=== PATIENT | male | born 1950 | race Caucasian/White ===

== ENCOUNTER → 2019-12-01 09:18 | Outpatient (BNVA) | payer MEDICARE, MEDICAID, SELFPAY | PROVIDERS: PCP Nurse Practitioner Family; Referring Provider Nurse Practitioner Family; Visit Provider Psychiatry & Neurology Neurology | DX: G47.33 Obstructive sleep apnea (adult) (pediatric) (principal); Z99.89 Dependence on other enabling machines and devices | CPT/HCPCS: 99213 ==

== ENCOUNTER 2019-12-17 12:42 | Outpatient (REF) | payer MEDICARE, MEDICAID, SELFPAY ==
[2019-12-17 15:02] LABS: PSA,Total (Free>4and<10) 5.11 ng/mL (0.00-4.00)
[2019-12-18 12:11] LABS: Free Prostate Spec Ag 0.7 ng/mL; Percent Free Prostate Spec Ag 14 % (calc) (>25); Prostate Specific Ag Total 5.1 ng/mL (< OR = 4.0)
== END 2019-12-17 12:43 | disposition home or self-care (01) ==
LOC: HO.LAB 12:42
PROVIDERS: PCP Nurse Practitioner Family; Visit Provider Urology
DX: N40.0 Benign prostatic hyperplasia without lower urinary tract symptoms (principal)
CPT/HCPCS: 84153

== ENCOUNTER → 2019-12-23 10:02 | Outpatient (BNVA) | payer MEDICARE, MEDICAID, SELFPAY | PROVIDERS: PCP Nurse Practitioner Family; Referring Provider Nurse Practitioner Family; Visit Provider Student in an Organized Health Care Education/Training Program | DX: M1A.00X0 Idiopathic chronic gout, unspecified site, without tophus (tophi) (principal); M47.816 Spondylosis without myelopathy or radiculopathy, lumbar region | CPT/HCPCS: 99212 ==

== ENCOUNTER → 2020-01-29 11:12 | Outpatient (REF) | payer MEDICARE, MEDICAID, SELFPAY ==
--- NOTE | 2020-01-29 11:16 | CA_ITS ---
Transthoracic Echocardiogram Patient (Last, First, Middle): Fadi Ortega, Gender: Male Date of : 1950 Age: 69 Procedure Date: 01/29/2020 Procedure Type: Transthoracic Echocardiogram Location: OP Height: 177.8 cm Weight: 102.06 kg BSA: 2.19 m2 Heart Rate: bpm BP: 128 / 80 mmHg Rag Inspector: RAJNI Referring MD: Ramon Claire MD Resource Agent: Ramon Claire MD Symptoms: I25.5 Study Quality: Fair ECG Rhythm: Atrial Fibrillation Conclusions: - 1. Mildly reduced LV systolic function with regional wall motion abnormality consistent with prior myocardial infarction with mild LVH 2. Biatrial enlargement, right greater than left 3. Severely dilated right ventricle with reduced systolic function 4. Severely elevated right ventricular 5. No gross pericardial effusion Findings Procedure Information Contrast agent, definity, is being given per protocol without apparent complications. Left Ventricle Normal left ventricular cavity size. There is mildly increased left ventricular wall thickness. The left ventricular systolic function is mildly decreased. The visually estimated ejection fraction is between 45-50%. Diastolic function is indeterminate on the basis of available data. Wall Motion Rest Echo Findings The basal inferolateral segment is hypokinetic. The inferoseptal wall, the basal inferior, and mid inferior segments are akinetic. All other scored wall segments showed normal motion. Right Ventricle Severely increased right ventricular cavity size. There is mildly decreased right ventricular systolic function. Atria The left atrium is moderately dilated. There is no evidence of interatrial shunt. The right atrium is severely dilated. Aortic Valve The aortic valve was not well visualized. There is mild calcification of the aortic valve. There is no aortic valve stenosis. There is no aortic valve regurgitation. Mitral Valve The mitral valve was not well visualized. There is trace mitral valve regurgitation. There is no mitral valve stenosis. Pulmonic Valve The pulmonic valve was not well visualized. Tricuspid Valve The tricuspid valve was not well visualized. There is mild to moderate tricuspid valve regurgitation. Moderately elevated right atrial pressure. Severe pulmonary hypertension is present. Great Vessels All visible segments of the aorta are normal in size. The pulmonary artery was not well visualized. Venous The inferior vena cava is moderately dilated and collapses less than 50% with inspiration. Pericardium/Pleural There is no evidence of pericardial effusion. Prior Study Comparison Changes noted compared to prior study dated: 02/03/2019. RV systolic pressure is further increased Measurements 2D Linear Measurements IVSd: 1.21 0.6-0.9/0.6-1.0 cm LVIDd: 4.60 3.9-5.3/4.2-5.9 cm LVIDd Index: 2.10 2.4-3.2/2.2-3.1 cm/m2 LVIDs: 3.34 2.0-3.6 cm LVPWd: 1.23 0.7-1.1 cm Ao Root: 3.10 2.1-3.5 cm LA Diam: 4.80 2.7-3.8/3.0-4.0 cm LAIDs Index: 2.19 1.5-2.3 cm/m2 LV Mass: 261.64 67-162/88-224 g LV Mass Index: 119.47 43-95/49-115 g/m2 LVOT Diam: 2.10 3.0+(-)1.3 cm 2D Systolic Function EF 4C: 52.70 >55% EF 2C: 41.70 >55% EF BiP: 46.70 >55% Mitral Valve MV Pk E: 1.19 MV Decel Time: 137.00 E'Lateral: 13.10 E'Medial: 11.70 E/E' Med: 10.20 E/E' Lat: 9.10 PHT: 40.00 MVA PHT: 5.50 Decel Archer: 8.69 Aortic Valve AoV Pk Angel: 1.07 AoV Mn Angel: 0.70 AoV VTI: 0.26 AoV Pk Grad: 5.00 Aov Mn Grad: 2.00 MAYO Cont.VTI: 2.24 LVOT LVOT Pk Angel: 0.77 LVOT Mn Angel: 0.53 LVOT VTI: 0.17 LVOT Pk Grad: 2.00 LVOT Mn Grad: 1.00 LVOT Diam: 2.10 LVOT Area: 3.46 Diastolic Function MV Pk E: 1.19 E'Medial: 11.70 E/E' Med: 10.20 E' Laterial: 13.10 E/E' Lat: 9.10 Tricuspid Valve TR Pk Angel: 3.85 TR Pk Grad: 59.00 RA Press: 8.00 RVSP: 67.00 Great Vessels Aorta Ao Root-2D: 3.10 2.0-3.7 cm Pulmonary Valve PV Pk Angel: 0.76 Peak PV Grad: 2.00 Updated in Other Vendor System with Status of Final Ramon Claire MD electronically signed on 01/30/2020 11:41:43 AM with status of Final
== END ==
LOC: HO.CARD 11:12
PROVIDERS: PCP Nurse Practitioner Family; Visit Provider Internal Medicine Cardiovascular Disease
DX: I25.5 Ischemic cardiomyopathy (principal)
CPT/HCPCS: 93306; Q9957

== ENCOUNTER 2020-02-17 11:06 | Day surgery (SDC) | payer MEDICARE, MEDICAID, SELFPAY ==
[2020-02-09 09:36] VITALS: BMI 33.4
--- NOTE | 2020-02-16 10:38 | P.CONAN_ITS ---
Documented by User: Nallely Colbert 02/16/20 12:33 HPI - Anesthesia Eval Consult details Narrative: 69yo M for Colonoscopy [facility] [place] Past Medical History Medical History (Updated 02/09/20 @ 09:35 by Vandana Michelle) Arrhythmia CHF (congestive heart failure) Elevated cholesterol Gout History of posttraumatic stress disorder (PTSD) HTN (hypertension) Hx of cardiomyopathy Myocardial infarction Sleep apnea Family History Family History (Updated 11/28/19 @ 12:41 by Johanna Garnett [facility]) Father Hodgkin lymphoma Mother No problems noted. Sister Melanoma Surgical History Surgical History History of bladder surgery History of prostate surgery Hx of appendectomy Hx of cholecystectomy Hx of colonoscopy Hx of heart artery stent Hx of hernia repair Hx of tonsillectomy Social History Social History (Updated 12/23/19 @ 10:12 by Cole Agrawal LPN) Alcohol intake: current Alcohol intake frequency: holidays/special occasions only Alcohol type: beer and hard liquor Smoking Status: Former smoker Use of substances other than those prescribed or required for medical reasons: No Advance Directives: No Advance Directives Information Provided: Yes Meds Allergies Allergy/AdvReac Type Severity Reaction Status Date / Time No Known Allergies Allergy Verified 12/23/19 10:11 [No Known Allergies*] Home Medications Medication Instructions Recorded Confirmed Type ascorbate calcium (vitamin C) 500 1 g PO Q6H 11/28/19 11/28/19 History mg tablet atorvastatin 80 mg tablet 80 mg PO BEDTIME 11/28/19 11/28/19 History cholecalciferol (vitamin D3) 25 25 mcg PO DAILY 11/28/19 11/28/19 History mcg (1,000 unit) capsule dabigatran etexilate 150 mg capsule 150 mg PO BID 11/28/19 11/28/19 History docusate sodium 100 mg capsule 100 mg PO DAILY 11/28/19 11/28/19 History folic acid 1 mg tablet 1 mg PO DAILY 11/28/19 11/28/19 History losartan 50 mg tablet 50 mg PO DAILY 11/28/19 11/28/19 History omeprazole 20 mg capsule,delayed 20 mg PO DAILY 11/28/19 11/28/19 History release sennosides 8.6 mg capsule 8.6 mg PO DAILY 11/28/19 11/28/19 History vitamin B complex 1 tab PO DAILY 11/28/19 11/28/19 History allopurinol 100 mg tablet 200 mg PO DAILY tab 12/23/19 History metoprolol tartrate 100 mg tablet 100 mg PO DAILY 12/23/19 History metoprolol tartrate 50 mg tablet mg PO BEDTIME tab 12/23/19 History vitamin E (dl, acetate) 400 unit 400 unit PO DAILY 12/23/19 History capsule Exam Exam Date and Time: February 16, 2020 1038 Height,Weight and Vital Signs: Height 5 ft 10 in Weight 105.687 kg Narrative Narrative: ECHO 2020: - 1. Mildly reduced LV systolic function with regional wall motion abnormality consistent with prior myocardial infarction with mild LVH 2. Biatrial enlargement, right greater than left 3. Severely dilated right ventricle with reduced systolic function 4. Severely elevated right ventricular 5. No gross pericardial effusion EKG 07/2018: [email or web address], inferior infarct (old) Documented by User: Simona Flynn 02/17/20 12:13 [facility] [place] Past Medical History Medical History (Updated 02/09/20 @ 09:35 by Vandana Michelle) Arrhythmia CHF (congestive heart failure) Elevated cholesterol Gout History of posttraumatic stress disorder (PTSD) HTN (hypertension) Hx of cardiomyopathy Myocardial infarction Sleep apnea Family History Family History (Updated 11/28/19 @ 12:41 by Johanna Garnett Guille) Father Hodgkin lymphoma Mother No problems noted. Sister Melanoma Surgical History Surgical History History of bladder surgery History of prostate surgery Hx of appendectomy Hx of cholecystectomy Hx of colonoscopy Hx of heart artery stent Hx of hernia repair Hx of tonsillectomy Social History Social History (Updated 12/23/19 @ 10:12 by Cole Agrawal LPN) Alcohol intake: current Alcohol intake frequency: holidays/special occasions only Alcohol type: beer and hard liquor Smoking Status: Former smoker Use of substances other than those prescribed or required for medical reasons: No Advance Directives: No Advance Directives Information Provided: Yes Meds Allergies Allergy/AdvReac Type Severity Reaction Status Date / Time No Known Allergies Allergy Verified 12/23/19 10:11 [No Known Allergies*] Home Medications Medication Instructions Recorded Confirmed Type ascorbate calcium (vitamin C) 500 1 g PO Q6H 11/28/19 11/28/19 History mg tablet atorvastatin 80 mg tablet 80 mg PO BEDTIME 11/28/19 11/28/19 History cholecalciferol (vitamin D3) 25 25 mcg PO DAILY 11/28/19 11/28/19 History mcg (1,000 unit) capsule dabigatran etexilate 150 mg capsule 150 mg PO BID 11/28/19 11/28/19 History docusate sodium 100 mg capsule 100 mg PO DAILY 11/28/19 11/28/19 History folic acid 1 mg tablet 1 mg PO DAILY 11/28/19 11/28/19 History losartan 50 mg tablet 50 mg PO DAILY 11/28/19 11/28/19 History omeprazole 20 mg capsule,delayed 20 mg PO DAILY 11/28/19 11/28/19 History release sennosides 8.6 mg capsule 8.6 mg PO DAILY 11/28/19 11/28/19 History vitamin B complex 1 tab PO DAILY 11/28/19 11/28/19 History allopurinol 100 mg tablet 200 mg PO DAILY tab 12/23/19 History metoprolol tartrate 100 mg tablet 100 mg PO DAILY 12/23/19 History metoprolol tartrate 50 mg tablet mg PO BEDTIME tab 12/23/19 History vitamin E (dl, acetate) 400 unit 400 unit PO DAILY 12/23/19 History capsule Exam Airway Mallampati Class: I TM Dist: >3cm Neck ROM: Limited Loose/Missing/Broken Teeth: Yes (Edentulous) Heart: RRR Lungs: CTA Assessment and Plan Assessment Anesthesia Assessment: Anesthesia Plan Discussed and Chart Reviewed Final Anesthetic Review NPO: Yes ASA Class: III Final Preanesthetic Review: Meds/Allgs Chart Reviewed, Consent Obtained/Reviewed and Anes Risks/Benef Reviewed Patient Risk: Intermediate Procedure Risk: Low Anesthetic Plan Anesthetic Plan: MAC: Disposition: Standard PACU
[2020-02-16 12:26] VITALS: BMI 33.0
[2020-02-17 11:24] VITALS: BP 139/73; PULSE 60; RESP 16; TEMP 36.1; O2SAT 96
--- NOTE | 2020-02-17 12:25 | P.HPSUR_ITS ---
Pre-Procedural Eval Section B Chief Complaint: HX ADENOMATOUS POLYP Relevant Family History (Specify if Yes): No Relevant Social History: None Present Medications: see Short Stay Collaborative assessment Medical History: Significant History (Arrhythmia CHF (congestive heart failure) Elevated cholesterol Gout History of posttraumatic stress disorder (PTSD) HTN (hypertension) Hx of cardiomyopathy Myocardial infarction Sleep apnea) History of Previous Operations: Relevant previous surgery/procedure and date(s) (History of bladder surgery History of prostate surgery Hx of appendectomy Hx of cholecystectomy Hx of colonoscopy Hx of heart artery stent Hx of hernia repair Hx of tonsillectomy) Allergies: Allergies Allergy/AdvReac Type Severity Reaction Status Date / Time No Known Allergies Allergy Verified 12/23/19 10:11 [No Known Allergies*] Review of Systems Sugical H&P ROS: Negative: Constitution, Cardiovascular, Respiratory, Neurological, Psychiatric, Hem-Onc, Allergic/Immunologic, Gastrointestinal, Genitourinary, Musculoskeletal, Integumentary, Endocrine and Eyes/Ear s/Nose/Throat Exam Surgical H&P Exam: Normal: HEENT, Normal: Heart, Normal: Lungs, Normal: Extremities, Normal: Abdomen, Normal: Skin and Normal: Neurological Plan Diagnosis/Plan: Unchanged I have reviewed the history and physical and performed a pertinent physical examination on my patient. No changes have occurred unless specified.
--- NOTE | 2020-02-17 12:26 | PM.OP ---
Brief Operative Note Date of Service: 02/17/20 Pre-op diagnosis: hx of colon polyp Post-op diagnosis: same Procedure: Operative Information Procedure Description: Colonoscopy COLONOSCOPY Instrument: Olympus variable stiffness pediatric scope 190L Colonoscopy Monitoring: Vital signs and clinical assessment, continuous EKG monitoring, Pulse oximetry, Carbon Dioxide monitoring and blood pressure monitoring were done throughout the procedure. Colon withdrawal time was 11 minutes. Procedure: The patient was placed in the left lateral decubitis position and pre-procedure medications were administered. After a digital rectal examination of the ano-rectum, the video colonoscope was inserted into the rectum and advanced through the colon to the cecum/TI. The colonoscope was slowly withdrawn in a retrograde panoramic fashion and the colon mucosa was carefully examined including a retroflexed view of the rectum. Findings and interventions are described below. Procedure Difficulty:easy Findings: Terminal Ileum-normal Cecum:10-12 mm linear shaped sessile polyp removed with cold snare Ascending Colon: normal Transverse Colon -normal Descending Colon:normal Sigmoid Colon: normal Rectum: Retroflexion with small sized internal hemorrhoids, grade I Anorectum - normal Colon preparation: [place]den Bowel Preparation Scale Right colon; 2 Transverse colon: 2 Left colon; 1 (0 = Unprepared colon segment with mucosa not seen due to solid stool that cannot be cleared. 1 = Portion of mucosa of the colon segment seen, but other areas of the colon segment not well seen due to staining, residual stool and/or opaque liquid. 2 = Minor amount of residual staining, small fragments of stool and/or opaque liquid, but mucosa of colon segment seen well. 3 = Entire mucosa of colon segment seen well with no residual staining, small fragments of stool or opaque liquid) Impression and Post Procedure Diagnosis: polyp internal hemorrhoids Plan: High fiber diet leaflet Avoid straining at stool, epsom salts and sitz bath, anusol supps or cream Repeat Colonoscopy in 5 years due to fair prep or earlier if clinically indicated Above findings were reviewed with the patient and relevant handouts were provided if indicated. Surgeon: Nelson Mensah MD Anesthesia: MAC Estimated blood loss (mL): 0 Condition: stable Disposition: PACU
[2020-02-17 13:16] VITALS: BP 101/60; PULSE 60; RESP 16; TEMP 36.6; O2SAT 97
[2020-02-17 13:20] VITALS: BP 115/61
[2020-02-17 13:35] VITALS: BP 126/71; PULSE 57; RESP 16; TEMP 36.6; O2SAT 98
--- NOTE | 2020-02-17 14:03 | HO.POSTANES ---
Post Anesthesia Evaluation Post Anesthesia Evaluation Vital Signs: Vital Signs Temp Pulse Resp BP Pulse Ox 02/17/20 13:35 98 F 57 16 126/71 98 02/17/20 13:20 115/61 02/17/20 13:16 98 F 60 16 101/60 97 02/17/20 11:24 96.9 F 60 16 139/73 96 Anesthesia: General (tiva) Mental Status: Awake Pain Control: Satisfactory Nausea/Vomiting: None Hydration: Adequate Anesthesia-Related Issues: No Anes. Related Issues
== END 2020-02-17 14:14 | disposition home or self-care (01) ==
PROVIDERS: PCP Nurse Practitioner Family; Visit Provider Internal Medicine Gastroenterology
PROC: 0DJD8ZZ Inspection of Lower Intestinal Tract, Via Natural or Artificial Opening Endoscopic (ICD-10-PCS; CPT 45378; principal; 2020-02-17 13:10)
DX: Z12.11 Encounter for screening for malignant neoplasm of colon (principal); Z86.010 Personal history of colon polyps; D12.0 Benign neoplasm of cecum; K64.0 First degree hemorrhoids; I48.21 Permanent atrial fibrillation; F43.10 Post-traumatic stress disorder, unspecified; Z79.01 Long term (current) use of anticoagulants; G47.33 Obstructive sleep apnea (adult) (pediatric); I11.0 Hypertensive heart disease with heart failure; I50.9 Heart failure, unspecified; Z90.49 Acquired absence of other specified parts of digestive tract; Z79.899 Other long term (current) drug therapy; Z87.891 Personal history of nicotine dependence
CPT/HCPCS: 45385; 88305

== ENCOUNTER → 2020-02-29 13:50 | Outpatient (BNVA) | payer MEDICARE, MEDICAID, SELFPAY | PROVIDERS: PCP Nurse Practitioner Family; Visit Provider Urology | DX: Z85.51 Personal history of malignant neoplasm of bladder (principal) | CPT/HCPCS: 52000; 81002; 99212 ==

== ENCOUNTER → 2020-03-15 09:49 | Outpatient (BNVA) | payer MEDICARE, MEDICAID, SELFPAY | PROVIDERS: PCP Nurse Practitioner Family; Visit Provider Psychiatry & Neurology Neurology | DX: G47.33 Obstructive sleep apnea (adult) (pediatric) (principal) | CPT/HCPCS: Q3014 ==

== ENCOUNTER → 2020-04-05 12:32 | Outpatient (BNVA) | payer MEDICARE, MEDICAID, SELFPAY | PROVIDERS: Visit Provider Internal Medicine Cardiovascular Disease | DX: I50.9 Heart failure, unspecified (principal); I27.20 Pulmonary hypertension, unspecified; I48.20 Chronic atrial fibrillation, unspecified; I25.10 Atherosclerotic heart disease of native coronary artery without angina pectoris; I25.5 Ischemic cardiomyopathy | CPT/HCPCS: 93005; 99212 ==

== ENCOUNTER → 2020-08-30 13:56 | Outpatient (BNVA) | payer MEDICARE, MEDICAID, SELFPAY | PROVIDERS: Visit Provider Urology | DX: C67.9 Malignant neoplasm of bladder, unspecified (principal); N40.0 Benign prostatic hyperplasia without lower urinary tract symptoms | CPT/HCPCS: 52000; 99212 ==

== ENCOUNTER → 2020-09-20 09:13 | Outpatient (BNVA) | payer MEDICARE, MEDICAID, SELFPAY | PROVIDERS: PCP General Practice; Visit Provider Psychiatry & Neurology Neurology | DX: Z13.89 Encounter for screening for other disorder (principal) | CPT/HCPCS: Q3014 ==

== ENCOUNTER 2020-11-03 10:26 | Outpatient (REF) | payer MEDICARE, MEDICAID, SELFPAY ==
[2020-11-03 13:18] LABS: Anion Gap 13 (12-20); Blood Urea Nitrogen 11 mg/dL (9-16); Calcium 9.5 mg/dL (8.4-10.2); Carbon Dioxide 29 mmol/L (22-29); Chloride 105 mmol/L (96-108); Estimated Glomerular Filt Rate > 60; Glucose Random 96 mg/dL (60-115); Potassium 4.5 mmol/L (3.3-5.1); Sodium 142 mmol/L (135-145)
== END 2020-11-03 10:27 | disposition home or self-care (01) ==
LOC: HO.LAB 10:26
PROVIDERS: PCP General Practice; Referring Provider General Practice; Visit Provider Internal Medicine Cardiovascular Disease
DX: I50.9 Heart failure, unspecified (principal); I25.10 Atherosclerotic heart disease of native coronary artery without angina pectoris; I48.20 Chronic atrial fibrillation, unspecified; Z79.899 Other long term (current) drug therapy
CPT/HCPCS: 36415; 80048; 99212

== ENCOUNTER → 2020-11-22 10:41 | Outpatient (BNVA) | payer MEDICARE, MEDICAID, SELFPAY | PROVIDERS: PCP General Practice; Referring Provider General Practice; Visit Provider Surgery | DX: K40.90 Unilateral inguinal hernia, without obstruction or gangrene, not specified as recurrent (principal) | CPT/HCPCS: 99202 ==

== ENCOUNTER → 2020-12-09 10:02 | Outpatient (REF) | payer MEDICARE, MEDICAID, SELFPAY ==
--- NOTE | ~2020-12-09 | NM_ITS ---
Myocardial perfusion study Indication: Preoperative cardiovascular risk stratification to evaluate for myocardial ischemia Technique: The patient was brought in for a Lexiscan perfusion study on 12/09/2020. Patient performed low-level exercise and was injected 0.4 mg of Lexiscan intravenously. Within a minute of injection, 35 mCi of sestamibi was given intravenously. Images were obtained using the SPECT gamma camera interlaced with the gating device. Images were obtained in supine position. Resting perfusion study was performed on 12/10/2020. Patient was administered 35 mCi of sestamibi intravenously at rest. Images were then obtained in supine position. Images obtained with and without CT attenuation. Total DLP 146 mGy-cm. Images were processed with the software and compared side to side in short axis, horizontal long axis and vertical long axis views. Findings: The stress perfusion study showed nonattenuated as well as attenuation corrected images show absent uptake in the apical and mid inferior wall as well as severely reduced uptake in the basal inferior wall of the LV myocardium. Remainder of the LV myocardium is normally perfused. The gated study shows normal LV systolic function with calculated LVEF of 53%. LV cavity is mildly to moderately dilated size. The gated study shows reduced wall thickening and contraction of inferior segments. Resting study shows no change in perfusion pattern compared to stress perfusion study. Gating at rest reveals inferior wall motion with ejection fraction at 55%. The findings are consistent with transmural infarct of the inferior wall without reversible ischemia. NM/NM alirio perf SPECT rest & str Impression: 1. Myocardial perfusion imaging study shows inferior wall infarction without ischemia 2. Gated LVEF is 53% 3. Transient ischemic dilatation not present EKG is nondiagnostic for ischemia
--- NOTE | 2020-12-09 10:06 | CA_ITS ---
Acquisition Time: 2020-12-09 10:04:17 Total Exercise Time: 00:02:00 Test Indications: ABN EKG, AFIB Medications: SEE CHART Protocol: LEXISCAN Max HR: 075 BPM 50% of Pred: 149 BPM Max BP: 140/078 mmHG Max Work Load: 1.0 METS Pharmacological stress test with lexiscan injection, while sitting and kicking his legs, without anginal symptoms, without arrythmia, with normotensive response to injection, without EKG chnages meeting criteria for ischemia. Nuclear images pending. Test reviewed with Dr Claire. Referred By: Ramon Claire Overread By: CARLOS MANUEL CARIAS
== END ==
LOC: HO.CARD 10:02
PROVIDERS: PCP Internal Medicine; Visit Provider Internal Medicine Cardiovascular Disease
DX: Z01.818 Encounter for other preprocedural examination (principal); I25.10 Atherosclerotic heart disease of native coronary artery without angina pectoris
CPT/HCPCS: 78452; 93017; A9500; J0280; J2785

== ENCOUNTER 2020-12-12 08:35 | Day surgery (SDC) | payer MEDICARE, MEDICAID, SELFPAY ==
[2020-12-06 11:30] VITALS: BMI 32.8
--- NOTE | 2020-12-08 13:18 | P.CONAN_ITS ---
HPI - Anesthesia Eval Consult details Narrative: 70yo M for Right Hernia Repair Inguinal with mesh Pending cardiology clearance. Stress to be performed 12/09/20 (Lexiscan wnl, nuc images pending) [facility] Active Problems Active Problems: All Active Problems (Updated 12/06/20 @ 11:28 by Vandana Michelle RN) Obstructive sleep apnea (Acute) Lumbar spondylosis (Acute) Bladder cancer (Acute) Right inguinal hernia (Acute) BPH (benign prostatic hyperplasia) (Acute) Pulmonary hypertension (Acute) Chronic atrial fibrillation (Acute) Congestive heart failure (Acute) CAD (coronary artery disease) (Acute) Ischemic cardiomyopathy (Acute) Sleep apnea (Acute) Elevated PSA (Acute) Gout (Acute) Past Medical History Medical History BPH (benign prostatic hyperplasia) CAD (coronary artery disease) Chronic atrial fibrillation Congestive heart failure COVID-19 vaccine series completed Elevated cholesterol Elevated PSA Gout History of bladder cancer History of posttraumatic stress disorder (PTSD) HTN (hypertension) Ischemic cardiomyopathy Myocardial infarction Pulmonary hypertension Sleep apnea Family History Family History Father Hodgkin lymphoma Mother No problems noted. Sister Melanoma Surgical History Surgical History History of bladder surgery History of prostate surgery Hx of appendectomy Hx of cholecystectomy Hx of colonoscopy Hx of heart artery stent Hx of hernia repair Hx of tonsillectomy Social History Social History Alcohol intake: current Alcohol intake frequency: holidays/special occasions only Patient Tobacco Use Status: Former Tobacco user Quit Date: 2007 Tobacco use type: Cigarette Meds Allergies Allergy/AdvReac Type Severity Reaction Status Date / Time No Known Allergies Allergy Verified 12/12/20 09:27 [No Known Allergies*] Home Medications Medication Instructions Recorded Confirmed Last Taken Type ascorbate calcium (vitamin C) 500 1 g PO Q6H 11/28/19 12/06/20 Unknown History mg tablet atorvastatin 80 mg tablet 80 mg PO BEDTIME 11/28/19 12/06/20 Unknown History cholecalciferol (vitamin D3) 25 25 mcg PO DAILY 11/28/19 12/06/20 Unknown History mcg (1,000 unit) capsule dabigatran etexilate 150 mg capsule 150 mg PO BID 11/28/19 12/06/20 02/13/20 History docusate sodium 100 mg capsule 100 mg PO DAILY PRN 11/28/19 12/06/20 Unknown History (Colace) folic acid 1 mg tablet 1 mg PO DAILY 11/28/19 12/06/20 Unknown History losartan 50 mg tablet 50 mg PO DAILY 11/28/19 12/06/20 Unknown History omeprazole 20 mg capsule,delayed 20 mg PO DAILY 11/28/19 12/06/20 02/17/20 09:00 History release sennosides 8.6 mg capsule (senna) 8.6 mg PO DAILY PRN 11/28/19 12/06/20 Unknown History vitamin B complex (B 1 tab PO DAILY 11/28/19 12/06/20 Unknown History Complex-Vitamin B12) metoprolol tartrate 100 mg tablet 100 mg PO DAILY 12/23/19 12/06/20 02/17/20 09:00 History metoprolol tartrate 50 mg tablet 50 mg PO BEDTIME tab 12/23/19 12/06/20 Unknown History vitamin E (dl, acetate) 180 mg 400 unit PO DAILY 12/23/19 12/06/20 Unknown History (400 unit) capsule gabapentin 100 mg capsule 200 mg PO BEDTIME PRN 12/06/20 12/06/20 Unknown History Exam Exam Date and Time: December 08, 2020 1318 Height,Weight and Vital Signs: Height 5 ft 10 in Weight 103.873 kg Pertinent Lab Results Pertinent Lab Results: Laboratory Tests 11/03/20 11:44 Sodium 142 Potassium 4.5 Chloride 105 Carbon Dioxide 29 BUN 11 Creatinine 0.84 Narrative Narrative: 12/09/20 Protocol: LEXISCAN? Max HR: 075 BPM? 50% of? Pred: 149 BPM Max BP: 140/078 mmHG Max Work Load: 1.0 METS ? Pharmacological stress test with lexiscan injection, while sitting and kicking ?his legs, without anginal symptoms, without arrythmia, with normotensive ?response to injection, without EKG chnages meeting criteria for ischemia. ?Nuclear images pending. Test reviewed with Dr Claire. ECHO 01/2020: - 1. Mildly reduced LV systolic function with regional wall ? ? motion abnormality consistent with prior myocardial infarction? with mild LVH ? 2. Biatrial enlargement, right greater than left? 3. Severely dilated right ventricle with reduced systolic ? ? ? function? 4. Severely elevated right ventricular? 5. No gross pericardial effusion? ? ? EKG 03/2020: atrial fibrillation with inferior Q-waves, old Assessment and Plan Assessment Anesthesia Assessment: Chart Reviewed
[2020-12-12 09:15] VITALS: BP 143/84; PULSE 44; RESP 16; TEMP 36.3; O2SAT 96
--- NOTE | 2020-12-12 11:18 | W.PM.OPN ---
Operative Note Operative Note Date of Service: 12/12/20 Narrative: Preoperative diagnosis: Right inguinal hernia Postoperative diagnosis: Same Procedure: Repair of rightinguinal hernia with mesh Surgeon: Salvador Shelton MD Nuclear Medicine Technician: Tawny Olvera PA-C Anesthesia: General LMA Indications for procedure: 70-year-old male patient presenting with a palpable lump in the right groin which increases in size with lifting and straining and reduces with light pressure. On examination the patient is found to have a reducible right inguinal hernia with no discomfort to palpation. Operative findings:. Large indirect right inguinal hernia with no incarcerated bowel Specimen: Hernia sac Estimated blood loss: 5 mL Complications: None Procedure details: Patient was brought to the OR and placed in a supine position. After administering general anesthesia the patient's abdomen was prepped with ChloraPrep and draped in a sterile fashion. A surgical time-out was called the consent confirmed. Patient received preoperative antibiotics and Venodyne boots were in place. Local anesthesia consisting of 0.5% Sensorcaine with epinephrine was infiltrated over the right inguinal ligament. Incision was then made in oblique fashion over the inguinal ligament. This carried out through subcutaneous tissue past Remberto's fashion up to the external oblique aponeurosis. Additional local was infiltrated below the external oblique aponeurosis. This was then incised with a scalpel wide with the Metzenbaum scissors. Spermatic cord was then dissected free from the surrounding inguinal canal and retracted using a Dominga drain. The floor of the inguinal canal was examined and no direct hernia was identified. Fibers of the cremasteric muscle were then and an indirect sac was identified. This was dissected down to the internal ring. The sac was then opened and the contents reduced. The sac was ligated using a 0 Polysorb suture. Sac was then divided above this. This was sent to the specimen. The sac was then reduced into the abdominal cavity. Floor of the inguinal canal was found to be intact with no evidence of a direct inguinal hernia. Through the internal ring a preperitoneal space was created using an open Ray-Lillie sponge. A large extended PHS mesh was then obtained. The circular underlay was placed into the preperitoneal space and deployed. The overlay was then secured to the pubic tubercle conjoined tendon shelving edge of the inguinal ligament using interrupted 0 Polysorb sutures. A slit was made in the mesh and the mesh were wrapped around the spermatic cord at the internal ring. This was then secured to the shelving edge of the inguinal ligament using the 0 Polysorb suture. This was felt to be loose enough to allow the tip of an index finger to pass. Wounds were checked for hemostasis. Wounds were irrigated with saline solution and suctioned dry. External oblique aponeurosis was then closed using a running 2 0 Polysorb suture. Remberto's fascia and dermis reapproximated using interrupted 3-0 Polysorb sutures. Skin was then closed using a running subcuticular 4-0 Polysorb suture. Steri-Strips 2 x 2 gauze and Tegaderm were then applied. The patient tolerated the procedure well. Sponge, instrument, needle counts reported as correct. Patient was transferred to PACU in stable condition.
[2020-12-12 11:20] VITALS: BP 127/66; PULSE 61; RESP 16; TEMP 36.3; O2SAT 92
[2020-12-12 11:35] VITALS: BP 138/70; PULSE 60; RESP 16; O2SAT 96
[2020-12-12 11:50] VITALS: BP 147/67; PULSE 56; RESP 16; O2SAT 98
[2020-12-12 12:05] VITALS: BP 151/74; PULSE 50; RESP 16; O2SAT 95
[2020-12-12 12:20] VITALS: BP 138/76; PULSE 52; RESP 16; TEMP 36.3; O2SAT 95
== END 2020-12-12 13:16 | disposition home or self-care (01) ==
PROVIDERS: PCP General Practice; Visit Provider Surgery
PROC: (CPT 49505; principal; 2020-12-12 10:20)
DX: K40.90 Unilateral inguinal hernia, without obstruction or gangrene, not specified as recurrent (principal); I48.20 Chronic atrial fibrillation, unspecified; Z79.01 Long term (current) use of anticoagulants; I11.0 Hypertensive heart disease with heart failure; I50.9 Heart failure, unspecified; I25.2 Old myocardial infarction; I25.10 Atherosclerotic heart disease of native coronary artery without angina pectoris; Z98.61 Coronary angioplasty status; I27.20 Pulmonary hypertension, unspecified; R97.20 Elevated prostate specific antigen [PSA]; G47.33 Obstructive sleep apnea (adult) (pediatric); Z85.51 Personal history of malignant neoplasm of bladder; Z79.899 Other long term (current) drug therapy
CPT/HCPCS: 49505; 88302; C1781; J0690; J2250; J2405; J3010

== ENCOUNTER → 2020-12-20 12:47 | Outpatient (BNVA) | payer MEDICARE, MEDICAID, SELFPAY | PROVIDERS: PCP General Practice; Referring Provider General Practice; Visit Provider Surgery | DX: Z48.815 Encounter for surgical aftercare following surgery on the digestive system (principal); Z87.19 Personal history of other diseases of the digestive system | CPT/HCPCS: 99212 ==

== ENCOUNTER 2020-12-22 10:37 | Outpatient (REF) | payer MEDICARE, MEDICAID, SELFPAY ==
[2020-12-22 11:55] LABS: Urine Cytology See Pathology rpt
[2020-12-23 11:40] LABS: Free Prostate Spec Ag 0.5 ng/mL; Percent Free Prostate Spec Ag 9 % (calc) (>25); Prostate Specific Ag Total 5.8 ng/mL (< OR = 4.0)
== END 2020-12-22 10:38 | disposition home or self-care (01) ==
LOC: HO.LAB 10:37
PROVIDERS: Urology; Absent Provider Student in an Organized Health Care Education/Training Program; PCP General Practice; Visit Provider Nurse Practitioner Family
DX: Z12.5 Encounter for screening for malignant neoplasm of prostate (principal); M47.816 Spondylosis without myelopathy or radiculopathy, lumbar region; M1A.00X0 Idiopathic chronic gout, unspecified site, without tophus (tophi); N13.8 Other obstructive and reflux uropathy; N40.1 Benign prostatic hyperplasia with lower urinary tract symptoms; R97.20 Elevated prostate specific antigen [PSA]
CPT/HCPCS: 36415; 84153; 84154; 88112; 99212

== ENCOUNTER → 2021-01-24 11:23 | Outpatient (BNVA) | payer MEDICARE, MEDICAID, SELFPAY | PROVIDERS: PCP General Practice; Referring Provider General Practice; Visit Provider Surgery ==

== ENCOUNTER → 2021-01-31 10:09 | Outpatient (BNVA) | payer MEDICARE, MEDICAID, SELFPAY | PROVIDERS: PCP General Practice; Referring Provider General Practice; Visit Provider Surgery | DX: Z48.815 Encounter for surgical aftercare following surgery on the digestive system (principal); Z87.19 Personal history of other diseases of the digestive system | CPT/HCPCS: 99212 ==

== ENCOUNTER → 2021-03-07 09:09 | Outpatient (REF) | payer MEDICARE, MEDICAID, SELFPAY | LOC: HO.SL 09:09 | PROVIDERS: Visit Provider Psychiatry & Neurology Neurology | DX: G47.33 Obstructive sleep apnea (adult) (pediatric) (principal) | CPT/HCPCS: 99211 ==

== ENCOUNTER 2021-03-17 09:10 | Outpatient (REF) | payer MEDICARE, MEDICAID, SELFPAY | END 2021-03-17 09:11 | disposition home or self-care (01) | LOC: HO.LAB 09:10 | PROVIDERS: Visit Provider Urology | DX: N40.0 Benign prostatic hyperplasia without lower urinary tract symptoms (principal); R97.20 Elevated prostate specific antigen [PSA] | CPT/HCPCS: 52000; 99212 ==

== ENCOUNTER → 2021-06-07 10:17 | Outpatient (REF) | payer MEDICARE, MEDICAID, SELFPAY ==
--- NOTE | 2021-06-07 10:20 | CA_ITS ---
Transthoracic Echocardiogram Patient (Last, First, Middle): Fadi Ortega, Gender: Male Date of : 1950 Age: 71 Procedure Date: 06/07/2021 Procedure Type: Transthoracic Echocardiogram Location: OP Height: 177.8 cm Weight: 102.06 kg BSA: 2.19 m2 Heart Rate: bpm BP: 140 / 70 mmHg Email Producer: JASON Posey MD: Ramon Claire MD Blending Tank Helper: Ramon Claire MD Symptoms: I50.9 - Heart failure, unspecified Study Quality: Fair/Contrast ECG Rhythm: Atrial Fibrillation Conclusions: - 1. Mildly reduced left ventricular systolic function 2. Biatrial enlargement, right greater than left 3. Mild mitral regurgitation moderate tricuspid regurgitation 4. Severely elevated right ventricular systolic pressure and right atrial pressures 5. Small pericardial effusion Findings Procedure Information Contrast agent, definity, is being given per protocol without apparent complications. Left Ventricle Normal left ventricular cavity size. There is normal left ventricular wall thickness. The left ventricular systolic function is mildly decreased. The visually estimated ejection fraction is between 45-50%. Diastolic function is indeterminate on the basis of available data. Wall Motion Rest Echo Findings The basal inferior, mid inferior, and basal inferolateral segments are akinetic. All other scored wall segments showed normal motion. Right Ventricle Mildly increased right ventricular cavity size. There is mildly decreased right ventricular systolic function. Atria The left atrium is moderately dilated. Interatrial shunt cannot be excluded. The right atrium is severely dilated. Aortic Valve There is mild calcification of the aortic valve. There is mild thickening of the aortic valve. There is no aortic valve stenosis. There is no aortic valve regurgitation. Mitral Valve There is mild anterior and posterior mitral leaflet thickening. There is mild mitral annular calcification. There is mild mitral valve regurgitation. There is no mitral valve stenosis. Pulmonic Valve The pulmonic valve was not well visualized. Tricuspid Valve Likely normal tricuspid valve structure and function. There is moderate tricuspid valve regurgitation. Significantly elevated right atrial pressure. Severe pulmonary hypertension is present. Great Vessels All visible segments of the aorta are normal in size. The pulmonary artery was not well visualized. Venous The inferior vena cava is severely dilated and collapses less than 50% with inspiration. Pericardium/Pleural There is a small circumferential pericardial effusion. Prior Study Comparison No significant change compared to prior study dated: 01/29/2020. Measurements 2D Linear Measurements IVSd: 0.96 0.6-0.9/0.6-1.0 cm LVIDd: 4.25 3.9-5.3/4.2-5.9 cm LVIDd Index: 1.94 2.4-3.2/2.2-3.1 cm/m2 LVIDs: 3.30 2.0-3.6 cm LVPWd: 1.14 0.7-1.1 cm LA Diam: 4.00 2.7-3.8/3.0-4.0 cm LAIDs Index: 1.83 1.5-2.3 cm/m2 LV Mass: 185.95 67-162/88-224 g LV Mass Index: 84.91 43-95/49-115 g/m2 LVOT Diam: 2.20 3.0+(-)1.3 cm 2D Systolic Function EF 4C: 43.40 >55% EF 2C: 57.80 >55% EF BiP: 50.50 >55% Aortic Valve AoV Pk Angel: 1.13 AoV Mn Angel: 0.78 AoV VTI: 0.23 AoV Pk Grad: 5.00 Aov Mn Grad: 3.00 MAYO Cont.VTI: 3.35 LVOT LVOT Pk Angel: 0.91 LVOT Mn Angel: 0.59 LVOT VTI: 0.20 LVOT Pk Grad: 3.00 LVOT Mn Grad: 2.00 LVOT Diam: 2.20 LVOT Area: 3.80 Right Ventricle TAPSE (mm): 15.80 TVS' Angel: 8.16 Tricuspid Valve TR Pk Angel: 3.65 TR Pk Grad: 53.00 RA Press: 15.00 RVSP: 68.00 Great Vessels Aorta Sinus of Valsalva: 3.53 2.0-3.[address] Ridge: 3.23 1.7-3.4 cm Ao Asc: 3.30 2.1-3.4 cm Ao Arch: 2.80 Updated in Other Vendor System with Status of Final Ramon Claire MD electronically signed on 06/07/2021 12:24:13 PM with status of Final
== END ==
LOC: HO.CARD 10:17
PROVIDERS: Visit Provider Internal Medicine Cardiovascular Disease
DX: I50.9 Heart failure, unspecified (principal)
CPT/HCPCS: 93306; Q9957

== ENCOUNTER → 2021-06-08 14:09 | Outpatient (BNVA) | payer MEDICARE, MEDICAID, SELFPAY | PROVIDERS: PCP General Practice; Referring Provider General Practice; Visit Provider Internal Medicine Cardiovascular Disease | DX: I50.9 Heart failure, unspecified (principal); I25.10 Atherosclerotic heart disease of native coronary artery without angina pectoris; I48.20 Chronic atrial fibrillation, unspecified | CPT/HCPCS: 93005; 99212 ==

== ENCOUNTER 2021-07-07 12:28 | Outpatient (REF) | payer MEDICARE, MEDICAID, SELFPAY ==
[2021-07-07 13:51] LABS: PSA,Total (Free>4and<10) 2.81 ng/mL (0.00-4.00)
== END 2021-07-07 12:29 | disposition home or self-care (01) ==
LOC: HO.LAB 12:28
PROVIDERS: PCP General Practice; Visit Provider Urology
DX: Z12.5 Encounter for screening for malignant neoplasm of prostate (principal); N40.0 Benign prostatic hyperplasia without lower urinary tract symptoms
CPT/HCPCS: 36415; 84153

== ENCOUNTER → 2021-07-14 11:09 | Outpatient (BNVA) | payer MEDICARE, MEDICAID, SELFPAY | PROVIDERS: PCP General Practice; Visit Provider Urology | DX: N40.0 Benign prostatic hyperplasia without lower urinary tract symptoms (principal) | CPT/HCPCS: Q3014 ==

== ENCOUNTER 2021-11-10 10:42 | Outpatient (REF) | payer MEDICARE, MEDICAID, SELFPAY ==
[2021-11-10 16:41] LABS: Urine Cytology See Pathology rpt
== END 2021-11-10 10:43 | disposition home or self-care (01) ==
LOC: HO.LAB 10:42
PROVIDERS: Visit Provider Urology
DX: Z85.51 Personal history of malignant neoplasm of bladder (principal)
CPT/HCPCS: 52000; 88112; 99212

== ENCOUNTER → 2021-12-20 11:11 | Outpatient (BNVA) | payer MEDICARE, MEDICAID, SELFPAY | PROVIDERS: PCP General Practice; Visit Provider Nurse Practitioner Family | DX: M1A.00X0 Idiopathic chronic gout, unspecified site, without tophus (tophi) (principal); M47.816 Spondylosis without myelopathy or radiculopathy, lumbar region | CPT/HCPCS: 36415; 80053; 84550; 99212 ==

== ENCOUNTER 2021-12-20 12:48 | Outpatient (REF) | payer MEDICARE, MEDICAID, SELFPAY ==
[2021-12-20 14:24] LABS: Alanine Aminotransferase 14 U/L (0-40); Albumin Level 4.1 g/dL (3.5-5.0); Alkaline Phosphatase 88 U/L (39-117); Anion Gap 13 (12-20); Aspartate Amino Transferase 18 U/L (5-37); Bilirubin Total 1.1 mg/dL (0.0-1.0); Blood Urea Nitrogen 17 mg/dL (9-16); Calcium 9.5 mg/dL (8.4-10.2); Carbon Dioxide 31 mmol/L (22-29); Chloride 103 mmol/L (96-108); Estimated Glomerular Filt Rate > 60; Glucose Random 110 mg/dL (60-115); Potassium 4.4 mmol/L (3.3-5.1); Sodium 143 mmol/L (135-145); Uric Acid 5.7 mg/dL (3.4-7.0)
== END 2021-12-20 12:49 | disposition home or self-care (01) ==
LOC: HO.10HDL 12:48
PROVIDERS: Visit Provider Nurse Practitioner Family
DX: Z13.89 Encounter for screening for other disorder (principal)
CPT/HCPCS: 36415; 80053; 84550

== ENCOUNTER → 2021-12-27 10:26 | Outpatient (BNVA) | payer MEDICARE, MEDICAID, SELFPAY | PROVIDERS: PCP General Practice; Referring Provider General Practice; Visit Provider Internal Medicine Cardiovascular Disease | DX: I50.9 Heart failure, unspecified (principal); I25.10 Atherosclerotic heart disease of native coronary artery without angina pectoris; I48.20 Chronic atrial fibrillation, unspecified | CPT/HCPCS: 99212 ==

== ENCOUNTER 2022-05-10 13:26 | Outpatient (REF) | payer MEDICARE, MEDICAID, SELFPAY ==
[2022-05-10 15:25] LABS: PSA,Total (Free>4and<10) 2.24 ng/mL (0.00-4.00)
== END 2022-05-10 13:27 | disposition home or self-care (01) ==
LOC: HO.10HDL 13:26
PROVIDERS: Visit Provider Urology
DX: Z12.5 Encounter for screening for malignant neoplasm of prostate (principal); R97.20 Elevated prostate specific antigen [PSA]
CPT/HCPCS: 36415; 84153

== ENCOUNTER → 2022-05-15 10:51 | Outpatient (BNVA) | payer MEDICARE, MEDICAID, SELFPAY | PROVIDERS: PCP General Practice; Visit Provider Urology | DX: C67.9 Malignant neoplasm of bladder, unspecified (principal); N40.0 Benign prostatic hyperplasia without lower urinary tract symptoms; R97.20 Elevated prostate specific antigen [PSA] | CPT/HCPCS: Q3014 ==

== ENCOUNTER → 2022-07-06 10:37 | Outpatient (REF) | payer MEDICARE, MEDICAID, SELFPAY ==
--- NOTE | 2022-07-06 10:40 | CA_ITS ---
Transthoracic Echocardiogram Patient (Last, First, Middle): Fadi Ortega, Gender: Male Date of : 1950 Age: 72 Procedure Date: 07/06/2022 Procedure Type: Transthoracic Echocardiogram Location: OP Height: 177.8 cm Weight: 97.52 kg BSA: 2.15 m2 Heart Rate: 57 bpm BP: 130 / 70 mmHg Sewer And Inspector: PRINCESS Referring MD: Ramon Claire MD Symptoms: I50.9 - Heart failure, unspecified Study Quality: Adequate/Contrast ECG Rhythm: Atrial Fibrillation Conclusions: - The left ventricular systolic function is mildly decreased. The visually estimated ejection fraction is between 40-45%. - The basal inferior and mid inferior segments are akinetic. - Severe biatrial enlargement. - No obvious valvular pathology seen on this study. - Mild pulmonary hypertension is present. - There is a small loculated pericardial effusion overlying the left ventricle. Findings Procedure Information Contrast agent, definity, is being given per protocol without apparent complications. Left Ventricle Normal left ventricular cavity size. The left ventricular systolic function is mildly decreased. The visually estimated ejection fraction is between 40 45%. Diastolic function is indeterminate on the basis of available data. There is mild septal asymmetric hypertrophy. Wall Motion Rest Echo Findings The basal inferior and mid inferior segments are akinetic. Right Ventricle Mildly increased right ventricular cavity size. There is low normal right ventricular systolic function. Atria Severe biatrial enlargement. Aortic Valve There is mild calcification of the aortic valve. There is no aortic valve stenosis. There is no aortic valve regurgitation. Mitral Valve The mitral valve appears normal. There is mild mitral annular calcification. There is trace mitral valve regurgitation. There is no mitral valve stenosis. Pulmonic Valve The pulmonic valve is likely normal. Tricuspid Valve There is mild tricuspid valve regurgitation. Mild pulmonary hypertension is present. Great Vessels The asc aorta is normal in size. Venous The inferior vena cava is dilated and collapses greater than 50% with inspiration. Pericardium/Pleural There is a small loculated pericardial effusion overlying the left ventricle. Prior Study Comparison Changes noted compared to prior study dated: 06/07/2021. Improved RVSP. Recommendations, Care & Conclusions No obvious valvular pathology seen on this study. Measurements 2D Linear Measurements IVSd: 1.11 0.6-0.9/0.6-1.0 cm LVIDd: 5.35 3.9-5.3/4.2-5.9 cm LVIDd Index: 2.49 2.4-3.2/2.2-3.1 cm/m2 LVIDs: 4.21 2.0-3.6 cm LVPWd: 0.80 0.7-1.1 cm LA Diam: 4.60 2.7-3.8/3.0-4.0 cm LAIDs Index: 2.14 1.5-2.3 cm/m2 LV Mass: 238.87 67-162/88-224 g LV Mass Index: 111.10 43-95/49-115 g/m2 LVOT Diam: 2.20 3.0+(-)1.3 cm 2D Systolic Function EF 4C: 57.00 >55% EF 2C: 54.80 >55% Mitral Valve MV Pk E: 1.17 MV Decel Time: 152.00 E'Lateral: 9.79 E'Medial: 8.92 E/E' Med: 13.10 E/E' Lat: 12.00 PHT: 45.00 MVA PHT: 4.89 Decel Maury: 7.69 Aortic Valve AoV Pk Angel: 1.20 AoV Mn Angel: 0.85 AoV VTI: 0.30 AoV Pk Grad: 6.00 Aov Mn Grad: 3.00 MAYO Cont.VTI: 2.92 LVOT LVOT Pk Angel: 0.98 LVOT Mn Angel: 0.69 LVOT VTI: 0.23 LVOT Pk Grad: 4.00 LVOT Mn Grad: 2.00 LVOT Diam: 2.20 LVOT Area: 3.80 Diastolic Function MV Pk E: 1.17 E'Medial: 8.92 E/E' Med: 13.10 E' Laterial: 9.79 E/E' Lat: 12.00 Right Ventricle TAPSE (mm): 17.70 TVS' Angel: 9.79 Tricuspid Valve TR Pk Angel: 2.93 TR Pk Grad: 34.00 RA Press: 8.00 RVSP: 42.00 Great Vessels Aorta Sinus of Valsalva: 3.50 2.0-3.5 cm Ao Asc: 3.50 2.1-3.4 cm Pulmonary Valve PV Pk Angel: 0.76 Peak PV Grad: 2.00 Updated in Other Vendor System with Status of Final Jose Romero MD electronically signed on 07/07/2022 2:11:03 PM with status of Final
== END ==
LOC: HO.CARD 10:37
PROVIDERS: Visit Provider Internal Medicine Cardiovascular Disease
DX: I50.9 Heart failure, unspecified (principal)
CPT/HCPCS: 93306; Q9957

== ENCOUNTER → 2022-08-15 10:55 | Outpatient (BNVA) | payer MEDICARE, MEDICAID, SELFPAY | PROVIDERS: PCP General Practice; Referring Provider General Practice; Visit Provider Internal Medicine Cardiovascular Disease | DX: I50.9 Heart failure, unspecified (principal); I25.10 Atherosclerotic heart disease of native coronary artery without angina pectoris; I48.20 Chronic atrial fibrillation, unspecified; Z79.01 Long term (current) use of anticoagulants; Z79.899 Other long term (current) drug therapy | CPT/HCPCS: 93005; 99212 ==

== ENCOUNTER 2022-08-17 11:39 | Outpatient (REF) | payer MEDICARE, MEDICAID, SELFPAY ==
[2022-08-17 12:14] LABS: Hematocrit 42.8 % (42.0-52.0); Hemoglobin 13.5 g/dl (14.0-18.0); Mean Corpuscular HGB Conc 31.5 g/dl (31.0-36.0); Mean Corpuscular Hemoglobin 29.6 pg (27.0-33.0); Mean Corpuscular Volume 93.9 fL (80.0-98.0); Mean Platelet Volume 9.6 fL (9.4-12.4); Platelet Count 159 X10*3/uL (160-400); Red Blood Count 4.56 X10*6/uL (4.60-5.80); White Blood Count 7.6 X10*3/uL (4.8-10.8)
[2022-08-17 13:10] LABS: Anion Gap 12 (12-20); Blood Urea Nitrogen 10 mg/dL (9-16); Calcium 9.6 mg/dL (8.4-10.2); Carbon Dioxide 31 mmol/L (22-29); Chloride 105 mmol/L (96-108); Estimated Glomerular Filt Rate > 60; Glucose Random 95 mg/dL (60-115); Potassium 4.5 mmol/L (3.3-5.1); Sodium 143 mmol/L (135-145)
== END 2022-08-17 11:40 | disposition home or self-care (01) ==
LOC: HO.LAB 11:39
PROVIDERS: PCP General Practice; Visit Provider Internal Medicine Cardiovascular Disease
DX: I48.20 Chronic atrial fibrillation, unspecified (principal)
CPT/HCPCS: 36415; 80048; 85027

== ENCOUNTER 2022-09-10 11:02 | Outpatient (AMB) | payer MEDICARE, MEDICAID, SELFPAY ==
--- NOTE | 2022-09-10 11:17 | A.OFFVIS_ITS ---
Intake Vital Signs 09/10/22 11:18 Height 5 ft 10 in Weight 231 lb 4.238 oz BMI 33.2 BP 134/68 Blood Pressure Location Rt brachial Position Sitting Pulse 67 Pulse Source Pulse Oximeter Temp 98.6 F Temp Source Temporal Artery Scan Pulse Oximetry (%) 97 Oxygen Delivery Method Room Air Intake Visit Reasons: gout Intake Note: Pt reports pain in his lower back, numbness and tingling in both his feet but is wearing compression socks to help. He says his gout has been managed for about 3 years now. Allergies No Known Allergies [No Known Allergies*] Allergy (Verified 09/10/22 11:25) Medication List - Last Reconciled 09/10/22 by Enrike Mckenzie MD allopurinol 100 mg PO DAILY apixaban (Eliquis) 5 mg PO BID 90 days ascorbate calcium (vitamin C) 1 g PO Q6H atorvastatin 80 mg PO BEDTIME cholecalciferol (vitamin D3) 25 mcg PO DAILY finasteride 5 mg PO DAILY 90 days folic acid 1 mg PO DAILY furosemide 20 mg PO DAILY 90 days gabapentin 100 mg PO BEDTIME losartan 50 mg PO DAILY metoprolol tartrate 50 mg PO BEDTIME metoprolol tartrate 100 mg PO DAILY omeprazole 20 mg PO DAILY vitamin B complex (B Complex-Vitamin B12 tablet) 1 tab PO DAILY vitamin E (dl, acetate) 400 units PO DAILY HPI HPI Comments History of Present Illness Details The patient returns for evaluation of gout. He reports no attacks in the last year. He remains on allopurinol but is now taking 100 mg daily. His prior dose was 200 mg daily. He is on a host of other medicines for atrial fibrillation and CHF. He gets occasional sciatica but that has improved lately. He gets neuropathic symptoms in his feet helped with gabapentin nightly. [facility] Medical History (Updated 09/10/22 @ 12:07 by Enrike Mckenzie MD) BPH (benign prostatic hyperplasia) CAD (coronary artery disease) Chronic atrial fibrillation Congestive heart failure COVID-19 vaccine series completed Elevated cholesterol Elevated PSA Gout History of bladder cancer History of posttraumatic stress disorder (PTSD) HTN (hypertension) Ischemic cardiomyopathy Myocardial infarction Pulmonary hypertension Sleep apnea Surgical History History of bladder surgery History of prostate surgery Hx of appendectomy Hx of cholecystectomy Hx of colonoscopy Hx of heart artery stent Hx of hernia repair Hx of tonsillectomy Family History Father Hodgkin lymphoma Mother No problems noted. Sister Melanoma Social History Alcohol intake: current Alcohol intake frequency: a few times a week Patient Tobacco Use Status: Former Tobacco user Quit Date: 2007 Tobacco use type: Cigarette Review of Systems Const Details: Negative for appetite change, weight change, fever, chills, malaise and fatigue Card Details: Negative chest pain, edema and syncope Resp Details: Some exertional dyspnea chronic. Negative for cough and wheezing Endo Details: Negative for polyuria and polydypsia Luis A/Lymph Details: Negative for excessive bruising or bleeding. Physical Exam Vital Signs: Last Vital Signs Temp 98.6 F 09/10/22 11:18 Pulse 67 09/10/22 11:18 BP 134/68 09/10/22 11:18 Pulse Ox 97 09/10/22 11:18 Oxygen Delivery Method Room Air 09/10/22 11:18 BMI result Body Mass Index 33.2 APPEARANCE: Patient in no acute distress EXTREMITIES: Trace ankle edema, some venous stasis changes. No calf tenderness. JOINT EXAM:?? Cervical Spine: Hyperextension somewhat limited, some lateral flexion limitation at 10 degrees and rotation at 45 degrees with slight discomfort. No tenderness. Thoracic Spine:.? No scoliosis.? No tenderness on palpation. Lumbar Spine:.? Alignment normal.? Mild pain with flexion at 45 degrees. No tenderness. Chest Wall:.? No tenderness, swelling, increased warmth or erythema. Hands:.? Normal pain-free range of motion without tenderness, swelling, incre ased warmth or erythema. Able to make a full fist and has a good drier strength. Wrists:.? Normal pain-free range of motion without tenderness, swelling, increased warmth or erythema. Elbows:. Normal pain-free range of motion without tenderness, swelling, increased warmth or erythema. Shoulders:.?? Full range of motion without pain. No tenderness, weakness, swelling, increased warmth or erythema. Hips: Right: Slight decrease in external rotation and abduction but no pain. Left:? Full range of motion without pain. Hip bursa:.? No tenderness. Knees:.?? Right: Mild discomfort at full extension with some patellofemoral crepitus but no tenderness or effusion. Left: Normal pain-free range of motion with mild patellofemoral crepitus but no effusion, tenderness, swelling, increased warmth or erythema.? Ankles:.? Normal pain-free range of motion without tenderness, swelling, increased warmth or erythema. Feet:.? No tenderness. ? Results Reviewed Results Reviewed: Laboratory Tests 12/20/21 08/17/22 12:55 11:47 Creatinine 0.82 Uric Acid 5.7 Assessment & Plan Assessment & Plan (1) Gout: Comment: On allopurinol Code(s): M10.9 - Gout, unspecified Qualifiers: Chronicity: chronic Gout etiology: idiopathic Gout site: unspecified site Presence of tophus: without tophus Qualified Code(s): M1A.00X0 - Idiopathic chronic gout, unspecified site, without tophus (tophi) Plan Gout with no acute attacks. The last uric acid level was at target but he has cut the dose back to 100 mg daily. We discussed that less effective control of hyperuricemia would be more likely to end up with more frequent gout attacks. We will check a uric acid level today to see where we are at. We will be aiming to keep the uric acid below 6. The renal function look stable. We will aim for follow-up in about a year but will probably do another uric acid level again in the fall depending on today's value. Orders: Orders Uric Acid Today M10.9 - Gout, unspecified Coding Level of Care Code Est Pt Level 3 (73835) Diagnoses Gout M1A.00X0 Chronicity: chronic Gout etiology: idiopathic Gout site: unspecified site Presence of tophus: without tophus
[2022-09-10 11:18] VITALS: BP 134/68; PULSE 67; TEMP 37; O2SAT 97; BMI 33.2
== END 2022-09-10 12:02 | disposition home or self-care (01) ==
PROVIDERS: PCP General Practice; Visit Provider Internal Medicine Rheumatology
DX: M1A.00X0 Idiopathic chronic gout, unspecified site, without tophus (tophi) (principal)
CPT/HCPCS: 99213

== ENCOUNTER → 2022-09-10 11:02 | Outpatient (BNVA) | payer MEDICARE, MEDICAID, SELFPAY | PROVIDERS: PCP General Practice; Visit Provider Internal Medicine Rheumatology | DX: M1A.00X0 Idiopathic chronic gout, unspecified site, without tophus (tophi) (principal) | CPT/HCPCS: 36415; 84550; 99212 ==

== ENCOUNTER 2022-09-10 12:16 | Outpatient (REF) | payer MEDICARE, MEDICAID, SELFPAY ==
[2022-09-10 13:36] LABS: Uric Acid 5.4 mg/dL (3.4-7.0)
== END 2022-09-10 12:17 | disposition home or self-care (01) ==
LOC: HO.10HDL 12:16
PROVIDERS: Visit Provider Internal Medicine Rheumatology
DX: Z13.89 Encounter for screening for other disorder (principal)
CPT/HCPCS: 36415; 84550

== ENCOUNTER 2022-10-01 07:35 | Day surgery (SDC) | payer MEDICARE, MEDICAID, SELFPAY ==
[2022-09-25 11:13] VITALS: BMI 31.6
--- NOTE | 2022-09-28 07:58 | MHC.SHP ---
Pre-Procedural Eval Section A Date of Service: 09/28/22 The patient is an INPATIENT: No Changes since office visit: No Cold of Flu in the past 2 weeks, No New Medical Problems, No Changes in Medication and No Patient answered all questions The History & Physical has been completed within 30 days and I have reviewed it.: Yes Section B Chief Complaint: Age-related nuclear cataract, right eye Allergies: Allergies Allergy/AdvReac Type Severity Reaction Status Date / Time No Known Allergies Allergy Verified 09/10/22 11:25 [No Known Allergies*] Plan Diagnosis/Plan: Unchanged I have reviewed the history and physical and performed a pertinent physical examination on my patient. No changes have occurred unless specified. Time Spent With Patient Time: Total time managing care of this patient today ____ minutes.
[2022-10-01] MEDS: Tetracaine HCl/PF 0.5% Oph Sol 4 ML DROPS 1 DROP EYE-RIGHT (08:48)
[2022-10-01] MEDS: Tropicamide 1 % Ophth Sol 3 ML BTL 1 DROP EYE-RIGHT ×3 (08:49→08:58)
[2022-10-01] MEDS: Ketorolac Tromethamine 0.5% Op 5 ML DROPS 1 DROP EYE-RIGHT ×3 (08:49→08:58)
[2022-10-01] MEDS: Cyclopentolate 1 % Ophth Sol 2 ML DRPBTL 1 DROP EYE-RIGHT ×3 (08:49→08:58)
[2022-10-01] MEDS: Phenylephrine HCL 2.5% Oph SoL 2 ML BOTTLE 1 DROP EYE-RIGHT ×3 (08:49→08:58)
[2022-10-01 09:00] VITALS: BP 156/80; PULSE 62; RESP 18; TEMP 36.6; O2SAT 95
--- NOTE | 2022-10-01 09:38 | HO.ANESPROP2 ---
HPI - Anesthesia Eval Consult details Narrative: 72 yo male patient for Right cataract extraction, IOL insertion PMFSH Active Problems Active Problems: All Active Problems (Updated 10/01/22 @ 09:15 by Katie Reid MD) Obstructive sleep apnea (Acute). Uses CPAP machine Lumbar spondylosis (Acute) Bladder cancer (Acute) Right inguinal hernia (Acute) Right inguinal hernia (Acute) BPH (benign prostatic hyperplasia) (Acute) Pulmonary hypertension (Acute) Chronic atrial fibrillation (Acute). H/o cardioversion x3 Congestive heart failure (Acute) CAD (coronary artery disease) (Acute) Ischemic cardiomyopathy (Acute). EF 40-45% Elevated PSA (Acute) Gout (Acute) Past Medical History Medical History BPH (benign prostatic hyperplasia) CAD (coronary artery disease) Chronic atrial fibrillation Congestive heart failure COVID-19 vaccine series completed Elevated cholesterol Elevated PSA Gout History of bladder cancer History of posttraumatic stress disorder (PTSD) HTN (hypertension) Ischemic cardiomyopathy Myocardial infarction Pulmonary hypertension Sleep apnea Family History Family History Father Hodgkin lymphoma Mother No problems noted. Sister Melanoma Family history of problems with anesthesia: No Surgical History Surgical History History of bladder surgery History of prostate surgery Hx of appendectomy Hx of cholecystectomy Hx of colonoscopy Hx of heart artery stent Hx of hernia repair Hx of tonsillectomy History of Problems with Anesthesia: No Social History Social History Household Members Other:: sister Are you a primary career development director to a significant other at home: No Do you presently have visiting nurse or other home services: No Alcohol intake: current Alcohol intake frequency: a few times a week Patient Tobacco Use Status: Former Tobacco user Quit Date: 2007 Tobacco use type: Cigarette Use of substances other than those prescribed or required for medical reasons: No Have you been hit, kicked, punched, or otherwise hurt by someone within the past year? If so, by whom?: No Are you DNR?: No Advance Directives: Yes Advance Directives Information Provided: Yes Advance Directives on File: Yes Advance Directives Date on File: 09/05/10 Recently lost weight without trying: No Eating poorly because of decreased appetite: No Nutrition Risks: No Nutritional Risk Poor oral hygiene: No (upper & lower denture) Meds Allergies Allergy/AdvReac Type Severity Reaction Status Date / Time No Known Allergies Allergy Verified 10/01/22 09:01 [No Known Allergies*] Active Medications: Current Medications Lactated Ringer's (Lr) 500 mls @ 50 mls/hr IV .Q10H ISSA Stop: 10/01/22 17:59 Povidone Iodine (Povidone Iodine 5 % Ophth Soln 30 Ml Bottle) 1 appl EYE-RIGHT PREOP PRN PRN Reason: Pre-Op Surgical Implant Prophy Home Medications Medication Instructions Recorded Confirmed Last Taken Type ascorbate calcium (vitamin C) 500 1 g PO Q6H 11/28/19 09/25/22 Unknown History mg tablet atorvastatin 80 mg tablet 80 mg PO BEDTIME 11/28/19 09/25/22 Unknown History cholecalciferol (vitamin D3) 25 25 mcg PO DAILY 11/28/19 09/25/22 Unknown History mcg (1,000 unit) capsule folic acid 1 mg tablet 1 mg PO DAILY 11/28/19 09/25/22 Unknown History losartan 50 mg tablet 50 mg PO DAILY 11/28/19 09/25/22 Unknown History omeprazole 20 mg capsule,delayed 20 mg PO DAILY 11/28/19 09/25/22 10/01/22 History release vitamin B complex (B 1 tab PO DAILY 11/28/19 09/25/22 Unknown History Complex-Vitamin B12 tablet) metoprolol tartrate 100 mg tablet 100 mg PO DAILY 12/23/19 09/25/22 10/01/22 History metoprolol tartrate 50 mg tablet 50 mg PO BEDTIME 12/23/19 09/25/22 Unknown History vitamin E (dl, acetate) 180 mg 400 unit PO DAILY 12/23/19 09/25/22 Unknown History (400 unit) capsule gabapentin 100 mg capsule 100 mg PO BEDTIME 12/20/21 09/25/22 Unknown History Exam Exam Date and Time: October 01, [id number] Height,Weight and Vital Signs: Height 5 ft 10 in Weight 99.79 kg Last Vital Signs Temp 97.9 F 10/01/22 09:00 Pulse 62 10/01/22 09:00 Resp 18 10/01/22 09:00 BP 156/80 H 10/01/22 09:00 Pulse Ox 95 10/01/22 09:00 O2 Del Method Room Air 10/01/22 09:00 Airway Mallampati Class: II TM Dist: >3cm Neck ROM: Limited (Limited extension ) Denture: Upper and Lower (Left at home) Heart: Irregularly irregular Lungs: CTAB Assessment and Plan Assessment Anesthesia Assessment: Anesthesia Plan Discussed and Chart Reviewed Final Anesthetic Review Family History of Problems with Anesthesia: No History of Problems with Anesthesia: No NPO: Yes ASA Class: III Final Preanesthetic Review: No Changes in Pt Med Stat, Meds/Allgs Chart Reviewed, Consent Obtained/Reviewed and Anes Risks/Benef Reviewed Patient Risk: Intermediate Procedure Risk: Low Assessment/Block/Sedation in SS: Assess/Block/Sedation-SS Anesthetic Plan Anesthetic Plan: MAC: Disposition: Standard PACU
--- NOTE | 2022-10-01 09:43 | HO.PNOPHT ---
Ophthalmology Procedure Procedure Date of Service: 10/01/22 Ophthalmology Viscoelastic: Healbryon Lassitert Dual Pack Pro Ophthalmology Lenses: TECNIS [id number] (19.5) Procedure Notes: PREOPERATIVE DIAGNOSIS: Decreased visual acuity right eye secondary to cataract POSTOPERATIVE DIAGNOSIS: Same PROCEDURE: Right cataract extraction with intraocular lens insertion SURGEON: Chris Martinez M.D. ANESTHESIA: Topical/MAC ESTIMATED BLOOD LOSS: None COMPLICATIONS: None After obtaining informed consent, the patient was brought to the operating room suite and placed in the supine position. After adequate sedation per anesthesia, topical drops of Tetracaine were given to the right eye. The eye was then prepped and draped in the usual sterile fashion. The operating room microscope was then positioned over the operative eye and a lid speculum placed. A paracentesis was created. Viscoelastic was then instilled into the anterior chamber. A three plane incision was then created temporally, utilizing a 2.85 mm keratome. Capsulotomy forceps were then utilized to create a circular tear capsulotomy. Hydrodissection and hydrodelineation were carried out until adequate mobilization of the nucleus occurred. Phacoemulsification was then utilized to remove the dense central nucleus followed by removal of the cortical material utilizing the automated aspiration irrigation unit. Viscoelastic was instilled into the posterior capsular bag followed by placement of a posterior chamber intraocular lens without difficulty. The residual Viscoelastic was then removed utilizing the automated IA machine. The wound was checked and found to be watertight. The patient tolerated the procedure well and the lid speculum was removed. Intracameral injection of Vigamox 0.1 mL followed by a subtenon injection of Kenalog-40 0.2 mL were administered. The patient will be seen in the a.m.
[2022-10-01 10:11] VITALS: BP 146/69; PULSE 57; RESP 12; TEMP 36.1; O2SAT 100
== END 2022-10-01 10:30 | disposition home or self-care (01) ==
PROVIDERS: PCP General Practice; Visit Provider Ophthalmology
PROC: (CPT 66985; principal; 2022-10-01 09:40)
DX: H25.11 Age-related nuclear cataract, right eye (principal); H54.7 Unspecified visual loss; I11.0 Hypertensive heart disease with heart failure; H34.231 Retinal artery branch occlusion, right eye; H47.011 Ischemic optic neuropathy, right eye; I50.9 Heart failure, unspecified; I48.19 Other persistent atrial fibrillation; G47.33 Obstructive sleep apnea (adult) (pediatric); E78.00 Pure hypercholesterolemia, unspecified; Z79.01 Long term (current) use of anticoagulants; Z79.899 Other long term (current) drug therapy; Z99.89 Dependence on other enabling machines and devices; Z85.51 Personal history of malignant neoplasm of bladder; Z87.891 Personal history of nicotine dependence
CPT/HCPCS: 66984; J2250; J3010; J3301; V2632

== ENCOUNTER 2022-10-15 07:54 | Day surgery (SDC) | payer MEDICARE, MEDICAID, SELFPAY ==
[2022-09-25 11:16] VITALS: BMI 31.6
--- NOTE | 2022-10-05 08:19 | MHC.SHP ---
Pre-Procedural Eval Section A Date of Service: 10/05/22 The patient is an INPATIENT: No Changes since office visit: No Cold of Flu in the past 2 weeks, No New Medical Problems, No Changes in Medication and No Patient answered all questions The History & Physical has been completed within 30 days and I have reviewed it.: Yes Section B Chief Complaint: Age-related nuclear cataract, left eye Allergies: Allergies Allergy/AdvReac Type Severity Reaction Status Date / Time No Known Allergies Allergy Verified 10/01/22 09:01 [No Known Allergies*] Plan Diagnosis/Plan: Unchanged I have reviewed the history and physical and performed a pertinent physical examination on my patient. No changes have occurred unless specified. Time Spent With Patient Time: Total time managing care of this patient today ____ minutes.
--- NOTE | 2022-10-11 12:23 | P.CONAN_ITS ---
Documented by User: Nallely Colbert NP 10/11/22 12:24 HPI - Anesthesia Eval Consult details Narrative: 72yo M for Left Cataract Extraction IOL Insertion s/p right eye 10/01/22 with TIVA: Fent 25, Midaz 1 PMFSH Active Problems Active Problems: All Active Problems (Updated 09/25/22 @ 11:09 by Vandana Michelle, RN) Obstructive sleep apnea (Acute) Lumbar spondylosis (Acute) Bladder cancer (Acute) Right inguinal hernia (Acute) Right inguinal hernia (Acute) BPH (benign prostatic hyperplasia) (Acute) Pulmonary hypertension (Acute) Chronic atrial fibrillation (Acute) Congestive heart failure (Acute) CAD (coronary artery disease) (Acute) Ischemic cardiomyopathy (Acute) Sleep apnea (Acute) Elevated PSA (Acute) Gout (Acute) Past Medical History Medical History BPH (benign prostatic hyperplasia) CAD (coronary artery disease) Chronic atrial fibrillation Congestive heart failure COVID-19 vaccine series completed Elevated cholesterol Elevated PSA Gout History of bladder cancer History of posttraumatic stress disorder (PTSD) HTN (hypertension) Ischemic cardiomyopathy Myocardial infarction Pulmonary hypertension Sleep apnea Family History Family History Father Hodgkin lymphoma Mother No problems noted. Sister Melanoma Family history of problems with anesthesia: No Surgical History Surgical History History of bladder surgery History of prostate surgery Hx of appendectomy Hx of cholecystectomy Hx of colonoscopy Hx of heart artery stent Hx of hernia repair Hx of tonsillectomy History of Problems with Anesthesia: No Social History Social History Household Members Other:: sister Are you a primary health care specialist to a significant other at home: No Do you presently have visiting nurse or other home services: No Alcohol intake: current Alcohol intake frequency: a few times a week Patient Tobacco Use Status: Former Tobacco user Quit Date: 2007 Tobacco use type: Cigarette Use of substances other than those prescribed or required for medical reasons: No Have you been hit, kicked, punched, or otherwise hurt by someone within the past year? If so, by whom?: No Are you DNR?: No Advance Directives: Yes Advance Directives Information Provided: Yes Advance Directives on File: Yes Advance Directives Date on File: 09/05/10 Eating poorly because of decreased appetite: No Nutrition Risks: No Nutritional Risk Poor oral hygiene: No (upper & lower denture) Meds Allergies Allergy/AdvReac Type Severity Reaction Status Date / Time No Known Allergies Allergy Verified 10/01/22 09:01 [No Known Allergies*] Home Medications Medication Instructions Recorded Confirmed Last Taken Type ascorbate calcium (vitamin C) 500 1 g PO Q6H 11/28/19 09/25/22 Unknown History mg tablet atorvastatin 80 mg tablet 80 mg PO BEDTIME 11/28/19 09/25/22 Unknown History cholecalciferol (vitamin D3) 25 25 mcg PO DAILY 11/28/19 09/25/22 Unknown History mcg (1,000 unit) capsule folic acid 1 mg tablet 1 mg PO DAILY 11/28/19 09/25/22 Unknown History losartan 50 mg tablet 50 mg PO DAILY 11/28/19 09/25/22 Unknown History omeprazole 20 mg capsule,delayed 20 mg PO DAILY 11/28/19 09/25/22 10/15/22 History release vitamin B complex (B 1 tab PO DAILY 11/28/19 09/25/22 Unknown History Complex-Vitamin B12 tablet) metoprolol tartrate 100 mg tablet 100 mg PO DAILY 12/23/19 09/25/22 10/15/22 History metoprolol tartrate 50 mg tablet 50 mg PO BEDTIME 12/23/19 09/25/22 Unknown History vitamin E (dl, acetate) 180 mg 400 unit PO DAILY 12/23/19 09/25/22 Unknown History (400 unit) capsule gabapentin 100 mg capsule 100 mg PO BEDTIME 12/20/21 09/25/22 Unknown History Exam Exam Date and Time: October 11, 2022 1223 Height,Weight and Vital Signs: Height 5 ft 10 in Weight 99.79 kg Assessment and Plan Assessment Anesthesia Assessment: Chart Reviewed Final Anesthetic Review Family History of Problems with Anesthesia: No History of Problems with Anesthesia: No Documented by User: Simona Flynn MD 10/15/22 09:36 [facility] Past Medical History Medical History BPH (benign prostatic hyperplasia) CAD (coronary artery disease) Chronic atrial fibrillation Congestive heart failure COVID-19 vaccine series completed Elevated cholesterol Elevated PSA Gout History of bladder cancer History of posttraumatic stress disorder (PTSD) HTN (hypertension) Ischemic cardiomyopathy Myocardial infarction Pulmonary hypertension Sleep apnea Family History Family History Father Hodgkin lymphoma Mother No problems noted. Sister Melanoma Surgical History Surgical History History of bladder surgery History of prostate surgery Hx of appendectomy Hx of cholecystectomy Hx of colonoscopy Hx of heart artery stent Hx of hernia repair Hx of tonsillectomy Social History Social History Household Members Other:: sister Are you a primary health care specialist to a significant other at home: No Do you presently have visiting nurse or other home services: No Alcohol intake: current Alcohol intake frequency: a few times a week Patient Tobacco Use Status: Former Tobacco user Quit Date: 2007 Tobacco use type: Cigarette Use of substances other than those prescribed or required for medical reasons: No Have you been hit, kicked, punched, or otherwise hurt by someone within the past year? If so, by whom?: No Are you DNR?: No Advance Directives: Yes Advance Directives Information Provided: Yes Advance Directives on File: Yes Advance Directives Date on File: 09/05/10 Eating poorly because of decreased appetite: No Nutrition Risks: No Nutritional Risk Poor oral hygiene: No (upper & lower denture) Meds Allergies Allergy/AdvReac Type Severity Reaction Status Date / Time No Known Allergies Allergy Verified 10/01/22 09:01 [No Known Allergies*] Home Medications Medication Instructions Recorded Confirmed Last Taken Type ascorbate calcium (vitamin C) 500 1 g PO Q6H 11/28/19 09/25/22 Unknown History mg tablet atorvastatin 80 mg tablet 80 mg PO BEDTIME 11/28/19 09/25/22 Unknown History cholecalciferol (vitamin D3) 25 25 mcg PO DAILY 11/28/19 09/25/22 Unknown History mcg (1,000 unit) capsule folic acid 1 mg tablet 1 mg PO DAILY 11/28/19 09/25/22 Unknown History losartan 50 mg tablet 50 mg PO DAILY 11/28/19 09/25/22 Unknown History omeprazole 20 mg capsule,delayed 20 mg PO DAILY 11/28/19 09/25/22 10/15/22 History release vitamin B complex (B 1 tab PO DAILY 11/28/19 09/25/22 Unknown History Complex-Vitamin B12 tablet) metoprolol tartrate 100 mg tablet 100 mg PO DAILY 12/23/19 09/25/22 10/15/22 History metoprolol tartrate 50 mg tablet 50 mg PO BEDTIME 12/23/19 09/25/22 Unknown History vitamin E (dl, acetate) 180 mg 400 unit PO DAILY 12/23/19 09/25/22 Unknown History (400 unit) capsule gabapentin 100 mg capsule 100 mg PO BEDTIME 12/20/21 09/25/22 Unknown History Exam Airway Mallampati Class: III TM Dist: >3cm Neck ROM: Full Denture: Upper and Lower Loose/Missing/Broken Teeth: Yes, Upper and Lower Heart: RRR Lungs: CTA Assessment and Plan Assessment Anesthesia Assessment: Anesthesia Plan Discussed Final Anesthetic Review NPO: Yes ASA Class: III Final Preanesthetic Review: Meds/Allgs Chart Reviewed, Consent Obtained/Reviewed and Anes Risks/Benef Reviewed Patient Risk: Intermediate Procedure Risk: Low Anesthetic Plan Anesthetic Plan: MAC: Disposition: Standard PACU
[2022-10-15 08:36] VITALS: BP 170/98; PULSE 56; RESP 18; TEMP 36.9; O2SAT 95; BMI 32.3
--- NOTE | 2022-10-15 08:47 | PC.NURSE ---
text to Cristina De PARLIAMENTARY COUNSEL need order for pt for eye gtts. to mention to Dr. Bradshaw.
[2022-10-15] MEDS: Lactated Ringers 500 ML 50 ML IV (09:16)
[2022-10-15] MEDS: Tetracaine HCl/PF 0.5% Oph Sol 4 ML DROPS 1 DROP EYE-LEFT (09:17)
[2022-10-15] MEDS: Ketorolac Tromethamine 0.5% Op 5 ML DROPS 1 DROP EYE-LEFT ×3 (09:17→09:23)
[2022-10-15] MEDS: Phenylephrine HCL 2.5% Oph SoL 2 ML BOTTLE 1 DROP EYE-LEFT ×3 (09:17→09:23)
[2022-10-15] MEDS: Cyclopentolate 1 % Ophth Sol 2 ML DRPBTL 1 DROP EYE-LEFT ×3 (09:17→09:23)
[2022-10-15] MEDS: Tropicamide 1 % Ophth Sol 3 ML BTL 1 DROP EYE-LEFT ×3 (09:18→09:23)
--- NOTE | 2022-10-15 10:14 | P.PCNO_ITS ---
Ophthalmology Procedure Procedure Date of Service: 10/15/22 Ophthalmology Viscoelastic: Healon Duet Dual Pack Pro Ophthalmology Lenses: TECNIS [id number] (18.5) Procedure Notes: PREOPERATIVE DIAGNOSIS: Decreased visual acuity left eye secondary to cataract POSTOPERATIVE DIAGNOSIS: Same PROCEDURE: Left cataract extraction with intraocular lens insertion SURGEON: Chris Martinez M.D. ANESTHESIA: Topical/MAC ESTIMATED BLOOD LOSS: None COMPLICATIONS: Capsular rupture After obtaining informed consent, the patient was brought to the operation room suite and placed in the supine position. After adequate sedation per anesthesia, topical drops of Tetracaine were given to the left eye. The eye was then prepped and draped in the usual sterile fashion. The operating room microscope was then positioned over the operative eye and a lid speculum placed. A paracentesis was created. Viscoelastic was then instilled into the anterior chamber. A three plane incision was then created temporally, utilizing a 2.85 mm keratome. Capsulotomy forceps were then utilized to create a circular tear capsulotomy. Hydrodissection and hydrodelineation were carried out until adequate mobilization of the nucleus occurred. Phacoemulsification was then utilized to remove the dense central nuc leus followed by removal of the cortical material utilizing the automated aspiration irrigation unit. A small tear occured in the capsule that suddenly expanded without the vitreal face rupturing. The PCIOL was placed in the sulcus after Viscoat elastic was instilled into the Anterior Chamber. The residual Viscoat elastic was then removed utilizing the automated IA machine. The wound was check and found to be watertight. The patient tolerated the procedure well and the lid speculum was removed. Intracameral injection of Vigamox 0.1 mL followed by a subtenon injection of Kenalog-40 0.2 mL were administered. The patient will be seen in the a.m.
[2022-10-15 10:44] VITALS: BP 152/89; PULSE 56; RESP 16; TEMP 36.2; O2SAT 96
== END 2022-10-15 10:53 | disposition home or self-care (01) ==
LOC: HO.SSS 07:55
PROVIDERS: PCP General Practice; Visit Provider Ophthalmology
PROC: (CPT 66985; principal; 2022-10-15 11:10)
DX: H59 Intraoperative and postprocedural complications and disorders of eye and adnexa, not elsewhere classified (principal); H25.12 Age-related nuclear cataract, left eye; H54.7 Unspecified visual loss; I11.0 Hypertensive heart disease with heart failure; I50.9 Heart failure, unspecified; I48.91 Unspecified atrial fibrillation; G47.33 Obstructive sleep apnea (adult) (pediatric); Z79.01 Long term (current) use of anticoagulants; Z79.899 Other long term (current) drug therapy; Z87.891 Personal history of nicotine dependence
CPT/HCPCS: 66984; J2250; J3010; J3301; V2632

== ENCOUNTER 2022-11-08 10:56 | Outpatient (REF) | payer MEDICARE, MEDICAID, SELFPAY ==
[2022-11-08 16:36] LABS: Urine Cytology See Pathology rpt
== END 2022-11-08 10:57 | disposition home or self-care (01) ==
LOC: HO.LAB 10:56
PROVIDERS: Visit Provider Urology
DX: C67.9 Malignant neoplasm of bladder, unspecified (principal)
CPT/HCPCS: 52000; 81003; 88112

== ENCOUNTER 2022-11-08 10:56 | Outpatient (AMB) | payer MEDICARE, MEDICAID, SELFPAY ==
--- NOTE | 2022-11-08 11:13 | A.OFFVIS_ITS ---
Intake Intake Visit Reasons: cysto Intake Note: Patient is present for Cystoscopy Urology Med: Finasteride Antibiotic Allergy: None Blood Thinner: Eliquis Pharmacy: [facility] Cystoscope used during Procedure LOT#: [id number] EXP: 07/08/2024 Allergies No Known Allergies [No Known Allergies*] Allergy (Verified 11/08/22 11:14) HPI HPI Comments History of Present Illness Details Fadi is a pleasant male. He is a patient of Dr. Russ. He is seen for the following urologic condition - bladder cancer - BPH Here for check cystoscopy PSA review - 05/17 2.2 stable Continue finasteride Bladder surveillance yearly Bladder cancer initial diagnosis 2012 superficial low-grade treatment TURBT with BCG initiation superficial low-grade initial TURBT 2012 intervention - multiple previous TURBT studies - BCG 6 week course x3 last in 2015 currently undergoing surveillance protocol cystoscopy - 08/15 NAD, 03/17 NAD, 11/16 NAD cytology - 08/15 NAD continue with surveillance Lower urinary tract symptoms Weakness of stream Tolerable symptoms Addition of finasteride for elevated PSA and recurrent tissue TURP 2007, 2016 PSA 02/13 5.4, 08/15 4.4, 12/15 5.8 9%, 07/16 2.8, 05/17 2.2 continue to follow PSA PFSH Medical History COVID-19 vaccine series completed Pulmonary hypertension Chronic atrial fibrillation Congestive heart failure CAD (coronary artery disease) Ischemic cardiomyopathy Elevated PSA History of bladder cancer BPH (benign prostatic hyperplasia) Sleep apnea History of posttraumatic stress disorder (PTSD) Elevated cholesterol HTN (hypertension) Myocardial infarction Gout Surgical History Hx of heart artery stent Hx of hernia repair Hx of tonsillectomy Hx of appendectomy History of prostate surgery Hx of cholecystectomy Hx of colonoscopy History of bladder surgery Family History Father Hodgkin lymphoma Mother No problems noted. Sister Melanoma Social History Household Members Other:: sister Are you a primary body care manager to a significant other at home: No Do you presently have visiting nurse or other home services: No Alcohol intake: current Alcohol intake frequency: a few times a week Patient Tobacco Use Status: Former Tobacco user Quit Date: 2007 Tobacco use type: Cigarette Advance Directives Date on File: 09/05/10 Office Procedures Cystoscopy Consent Discussed risk and benefit or proposed procedure with the patient. Information consent for procedure given to the patient. Discussed technical aspects, risks, benefits and alternatives in full. Addressed all of the patient's questions and concerns regarding the procedure. The patient demonstrated knowledge and understanding. They wish to proceed with this procedure. Preparation The patient was prepped in the usual manner. A fixed income analyst was present and in the room. Genitalia was prepped with betadine solution in a sterile manner. Lidocaine Jelly 2% was placed into the urethra and 16Fr flexible Olympus cystoscope was inserted into the meatus after adequate lubrication. Procedure Meatus circumcised Urethra anterior posterior urethra normal Prostatic Urethra TURP defect Bladder examination with retroflexion of cystoscope Bladder Orifices normal shape and position Bladder Capacity normal Trabeculations grade 1/2 Cellule Formation occasional Diverticulum Formation - Mucosal Erythema - Bladder Tumor none - scarring [id number] DISPOSABLE SCOPE URO-G FLEXIBLE SCOPE Procedure code (CPT) selection complete Office Meds lidocaine HCl 2 % mucosal jelly in applicator Performing Provider: Dequan Villegas MD Performing Location: [facility] [place] Administered by: Carie Delacruz RN on 11/08/22 11:22 Dose Route Admin Location Dispensed Lot Number Expiration Date [employer] 10 mL intra-urethral 10 mL nitrofurantoin monohydrate/macrocrystals 100 mg capsule Performing Provider: Dequan Villegas MD Performing Location: [facility] [place] Administered by: Carie Delacruz RN on 11/08/22 11:22 Dose Route Admin Location Dispensed Lot Number Expiration Date [employer] 100 mg PO 1 cap naproxen 500 mg tablet Performing Provider: Dequan Villegas MD Performing Location: [facility] [place] Administered by: Carie Delacruz RN on 11/08/22 11:22 Dose Route Admin Location Dispensed Lot Number Expiration Date [employer] 500 mg PO 1 tab Results AMB Urinalysis, Automated UA Leukoctes 0 Bayron/uL Last Edit by SIMI Galan on 11/08/22 11:19 UA Nitrite Negative Last Edit by Nory Giron, A on 11/08/22 11:19 UA Urobilinogen 3.5 mg/dL Last Edit by Nory Giron, A on 11/08/22 11:1 9 UA Protein 0 mg/dL Last Edit by Nory Giron, A on 11/08/22 11:19 UA pH 5.5 Last Edit by Nory Giron, A on 11/08/22 11:19 UA Blood 0 Geovany/uL Last Edit by Nory Giron, A on 11/08/22 11:19 UA Specific [place] 1.020 Last Edit by Nory Giron, A on 11/08/22 11: 19 UA Ketone Negative Last Edit by Nory Giron, A on 11/08/22 11:19 UA Bilirubin 0 mg/dL Last Edit by Nory Giron, A on 11/08/22 11:19 UA Glucose 0 mg/dL Last Edit by Nory Giron, A on 11/08/22 11:19 Results Reviewed Results Reviewed: Laboratory Last Values Urine pH (Auto) 5.5 11/08/22 11:15 Specific [place] (Auto) 1.020 11/08/22 11:15 Urine Protein (Auto) 0 mg/dL 11/08/22 11:15 Glucose (UA)(Auto) 0 mg/dL 11/08/22 11:15 Urine Ketones (Auto) Negative 11/08/22 11:15 Urine Blood (Auto) 0 Geovany/uL 11/08/22 11:15 Urine Nitrite (Auto) Negative 11/08/22 11:15 Urine Bilirubin (Auto) 0 mg/dL 11/08/22 11:15 Urine Urobilinogen (Auto) 3.5 mg/dL 11/08/22 11:15 Leukocyte Esterase (Auto) 0 Bayron/uL 11/08/22 11:15 Assessment & Plan Assessment & Plan (1) Bladder cancer: Comment: Recurrent superficial 2013 Code(s): C67.9 - Malignant neoplasm of bladder, unspecified Plan Continue surveillance Orders: Orders AMB Cystoscopy Today C67.9 - Malignant neoplasm of bladder, unspecified Urine Cytology Today C67.9 - Malignant neoplasm of bladder, unspecified Prostate Specific Antigen 364 Days R97.20 - Elevated prostate specific antigen [PSA] AMB Urinalysis Automated Today Z13.9 - Encounter for screening, unspecified Patient Instructions: Imaging studies, laboratory and physical exam results were discussed and reviewed in detail. No major barriers to patient understanding were identified. An opportunity to ask questions regarding the treatment plan was provided. All questions were answered. The patient expressed understanding and agreement with the above treatment plan. The patient is aware they should contact our office by phone for worsening of their current condition or the appearance of new urologic symptoms. Compliance is encouraged with any medications and followup testing that is ordered. It is a privilege to participate in the urologic care of your patient. If you have any questions or concerns regarding treatment for the above conditions, or other urologic issues, please do not hesitate to contact me. The office telephone contact is [phone]. This note is constructed using voice recognition software. While every effort has been made to ensure accuracy slip injector and applicator errors may have been included. Yours sincerely, Dr Dequan Villegas MD, [facility] - Urology Providers of Expert, Compassionate Care for the Genitourinary System Coding Level of Care Code Est Pt Level 3 (62098) Diagnoses Bladder cancer C67.9 CPT Codes Cystoscopy - CPT: 60806-[id number] ([id number])
== END 2022-11-08 11:46 | disposition home or self-care (01) ==
PROVIDERS: PCP General Practice; Visit Provider Urology
DX: C67.8 Malignant neoplasm of overlapping sites of bladder (principal)
CPT/HCPCS: 52000

== ENCOUNTER 2023-02-05 09:33 | Outpatient (REF) | payer MEDICARE, MEDICAID, SELFPAY ==
[2023-02-05 12:14] LABS: Anion Gap 10 (12-20); Blood Urea Nitrogen 10 mg/dL (9-16); Calcium 9.8 mg/dL (8.4-10.2); Carbon Dioxide 34 mmol/L (22-29); Chloride 102 mmol/L (96-108); Estimated Glomerular Filt Rate > 60; Glucose Random 121 mg/dL (60-115); Potassium 4.2 mmol/L (3.3-5.1); Sodium 142 mmol/L (135-145)
== END 2023-02-05 09:34 | disposition home or self-care (01) ==
LOC: HO.LAB 09:33
PROVIDERS: PCP General Practice; Visit Provider Internal Medicine Cardiovascular Disease
DX: I48.20 Chronic atrial fibrillation, unspecified (principal); I11.0 Hypertensive heart disease with heart failure; I50.9 Heart failure, unspecified; I25.10 Atherosclerotic heart disease of native coronary artery without angina pectoris
CPT/HCPCS: 36415; 80048; 99212

== ENCOUNTER 2023-02-05 09:33 | Outpatient (AMB) | payer MEDICARE, MEDICAID, SELFPAY ==
[2023-02-05 10:00] VITALS: BP 140/70; PULSE 51
--- NOTE | 2023-02-05 10:00 | MHC.OFFVIS ---
Intake Vital Signs 02/05/23 10:00 Height 5 ft 10 in BMI Reason not done Patient refused/unable BP 140/70 H Blood Pressure Location Lt brachial Position Sitting Pulse 51 Pulse Source Pulse Oximeter Intake Visit Reasons: 6 month follow up Intake Note: 6 mnth f/up pt its fine Deputy Attorney General Required: No Accompanied by: Self / Same As Patient Allergies No Known Allergies [No Known Allergies*] Allergy (Verified 02/05/23 10:03) Medication List - Last Reconciled 02/05/23 by Ramon Claire MD allopurinol 100 mg PO DAILY apixaban (Eliquis) 5 mg PO BID 90 days ascorbate calcium (vitamin C) 1 g PO Q6H atorvastatin 80 mg PO BEDTIME cholecalciferol (vitamin D3) 25 mcg PO DAILY finasteride 5 mg PO DAILY 90 days folic acid 1 mg PO DAILY furosemide 20 mg PO DAILY 90 days gabapentin 100 mg PO BEDTIME losartan 50 mg PO DAILY metoprolol tartrate 50 mg PO BEDTIME metoprolol tartrate 100 mg PO DAILY omeprazole 20 mg PO DAILY vitamin B complex (B Complex-Vitamin B12 tablet) 1 tab PO DAILY vitamin E (dl, acetate) 400 units PO DAILY HPI HPI Comments History of Present Illness Details Fadi comes for 6 month follow-up. He has been doing well from cardiac perspective. He notices exertional shortness of breath when he is walking up an incline. This is not worsening. Denies any orthopnea, PND. Symptoms resolved very quickly after stopping. Denies any leg edema or abdominal distension. Denies any prolonged palpitation irregular heartbeat. Denies any exertional chest pain. Takes all his medications. No bleeding issues or neurologic events. Uses CPAP regularly. [facility] Medical History COVID-19 vaccine series completed Pulmonary hypertension Chronic atrial fibrillation Congestive heart failure CAD (coronary artery disease) Ischemic cardiomyopathy Elevated PSA History of bladder cancer BPH (benign prostatic hyperplasia) Sleep apnea History of posttraumatic stress disorder (PTSD) Elevated cholesterol HTN (hypertension) Myocardial infarction Gout Surgical History Hx of heart artery stent Hx of hernia repair Hx of tonsillectomy Hx of appendectomy History of prostate surgery Hx of cholecystectomy Hx of colonoscopy History of bladder surgery Family History Father Hodgkin lymphoma Mother No problems noted. Sister Melanoma Social History Household Members Other:: sister Are you a primary ambulatory care to a significant other at home: No Do you presently have visiting nurse or other home services: No Alcohol intake: current Alcohol intake frequency: a few times a week Patient Tobacco Use Status: Former Tobacco user Quit Date: 2007 Tobacco use type: Cigarette Advance Directives Date on File: 09/05/10 Review of Systems Const Reports chills, Reports fatigue, Reports fever(s), Reports frequent falls, Reports weakness, Reports weight gain and Reports weight loss ENT Reports dizziness Card Reports chest pain, Reports leg edema, Reports lightheadedness, Reports palpitations, Reports dyspnea and Reports dyspnea on exertion Resp Reports cough, Reports dyspnea and Reports dyspnea on exertion GI Reports hematochezia Musc Reports abnormal gait, Reports muscle weakness, Reports numbness, Reports radiating pain into limb and Reports tingling Neuro Reports abnormal gait, Reports dizziness, Reports frequent falls, Reports numbness, Reports tingling and Reports weakness Endo Reports fatigue and Reports palpitations Physical Exam Vital Signs: Last Vital Signs Pulse 51 02/05/23 10:00 BP 140/70 H 02/05/23 10:00 Const General: cooperative, comfortable, no acute distress, alert and awake Nutritional Appearance: obese Orientation/consciousness: patient oriented x3 Limitations: no limitations Neck Neck: Yes trachea midline, Yes supple and Yes JVD Chest Chest palpation & inspection: normal inspection of the chest Resp Effort & Inspection: normal respiratory effort Auscultation: clear to auscultation bilaterally Cardio Jugular venous distension: JVD Palpation: normal PMI Rhythm: abnormal rhythm irregularly irregular Heart sounds: S1 normal heart sound present and S2 normal heart sound present GI Auscultation: normal bowel sounds Skin General skin exam: no rashes or lesions noted Neuro General: patient oriented x3 and no focal motor deficits Extrem General: Yes no clubbing, cyanosis or edema Psych Appearance: grossly normal Assessment & Plan Assessment & Plan (1) Chronic atrial fibrillation: Code(s): I48.20 - Chronic atrial fibrillation, unspecified Plan: Patient with chronic rate control atrial fibrillation has failed rhythm control approach and has done well over the many years without any worsening heart failure symptoms. He is noticing some NYHA class 2 symptoms at this point time although these are not worsening. Advised to monitor for symptoms. Continue current rate control with metoprolol therapy. Continue full oral anticoagulation, currently on Eliquis 5 mg b.i.d.. Semi annual renal function test is recommended. Continue CPAP therapy. Continue aggressive blood pressure control. (2) Congestive heart failure: Code(s): I50.9 - Heart failure, unspecified Plan: Heart failure with [id number] LV systolic dysfunction related ischemic cardiomyopathy and in the setting of atrial fibrillation. Clinically euvolemic and well compensated on low-dose Lasix therapy. Continue the same. Management of heart failure were discussed. Advised to continue current neurohormonal modulation with losartan and metoprolol therapy. Daily weight monitoring avoidance of salt loading was discussed. Advised to call me with worsening symptoms. Continue CPAP therapy. (3) CAD (coronary artery disease): Comment: follows w/[facility] regularly Code(s): I25.10 - Atherosclerotic heart disease of [place] coronary artery without angina pectoris Plan: CAD with prior inferior myocardial infarction. No recurrent symptoms suggestive angina. Continue aggressive risk factor modification. Currently on full dose oral anticoagulation will therefore avoid low-dose aspirin therapy to reduce bleeding risk. Continue high-intensity statin therapy. Target goal LDL closer to 60 mg/dL. Advise at least annual lipid panel. Blood pressure is currently well optimized. Encouraged to continue to participate in heart healthy lifestyle. Will follow up in the clinic in 6 months time after an echocardiogram. Thank you for allowing me to partake in his care Orders: Orders Basic Metabolic Panel Today I48.20 - Chronic atrial fibrillation, unspecified CA echo transthoracic complete 6 Months I25.5 - Ischemic cardiomyopathy Coding Level of Care Code Est Pt Level 4 (71095) Diagnoses Chronic atrial fibrillation I48.20 Congestive heart failure I50.9 CAD (coronary artery disease) I25.10
== END 2023-02-05 10:25 | disposition home or self-care (01) ==
PROVIDERS: PCP General Practice; Visit Provider Internal Medicine Cardiovascular Disease
DX: I48.20 Chronic atrial fibrillation, unspecified (principal); I50.9 Heart failure, unspecified; I25.10 Atherosclerotic heart disease of native coronary artery without angina pectoris
CPT/HCPCS: 99214

== ENCOUNTER → 2023-07-24 10:10 | Outpatient (REF) | payer MEDICARE, MEDICAID, SELFPAY ==
--- NOTE | 2023-07-24 10:13 | CA_ITS ---
Transthoracic Echocardiogram Patient (Last, First, Middle): Fadi Ortega, Gender: Male Date of : 1950 Age: 73 Procedure Date: 07/24/2023 Procedure Type: Transthoracic Echocardiogram Location: OP Height: 177.8 cm Weight: 97.52 kg BSA: 2.15 m2 Heart Rate: bpm BP: 136 / 70 mmHg Ingot Caster: MINDI Referring MD: Ramon Claire MD Symptoms: I25.5 - Ischemic cardiomyopathy Study Quality: Adequate, contrast Conclusions: - The left ventricular systolic function is mildly decreased. The visually estimated ejection fraction is between 40-45%. - Moderately increased right ventricular cavity size. - Severe biatrial enlargement. - There is moderate tricuspid valve regurgitation. - Mild pulmonary hypertension is present. - There is a small loculated pericardial effusion overlying the left ventricle. - The inferior vena cava is severely dilated and collapses less than 50% with inspiration. Findings Procedure Information Contrast agent, definity, is being given per protocol without apparent complications. Left Ventricle Normal left ventricular cavity size. There is normal left ventricular wall thickness. The left ventricular systolic function is mildly decreased. The visually estimated ejection fraction is between 40-45%. Diastolic function is indeterminate on the basis of available data. Wall Motion Rest Echo Findings The basal inferior, mid inferior, and basal inferolateral segments are akinetic. Right Ventricle Moderately increased right ventricular cavity size. There is mildly decreased right ventricular systolic function. Atria Severe biatrial enlargement. Aortic Valve There is mild calcification of the aortic valve. There is no aortic valve stenosis. There is no aortic valve regurgitation. Mitral Valve The mitral valve appears normal. There is trace mitral valve regurgitation. There is no mitral valve stenosis. Pulmonic Valve The pulmonic valve is likely normal. Tricuspid Valve There is moderate tricuspid valve regurgitation. Mild pulmonary hypertension is present. Great Vessels The asc aorta is normal in size. Venous The inferior vena cava is severely dilated and collapses less than 50% with inspiration. Pericardium/Pleural There is a small loculated pericardial effusion overlying the left ventricle. Prior Study Comparison Changes noted compared to prior study dated: 07/06/2022. Tricuspid regurgitation more prominent; IVC more dilated. Measurements 2D Linear Measurements IVSd: 0.97 0.6-0.9/0.6-1.0 cm LVIDd: 4.25 3.9-5.3/4.2-5.9 cm LVIDd Index: 1.98 2.4-3.2/2.2-3.1 cm/m2 LVIDs: 3.29 2.0-3.6 cm LVPWd: 1.22 0.7-1.1 cm LA Diam: 4.60 2.7-3.8/3.0-4.0 cm LAIDs Index: 2.14 1.5-2.3 cm/m2 LV Mass: 197.42 67-162/88-224 g LV Mass Index: 91.82 43-95/49-115 g/m2 LVOT Diam: 2.20 3.0+(-)1.3 cm 2D Systolic Function EF 4C: 46.40 >55% EF 2C: 49.40 >55% EF BiP: 50.50 >55% Mitral Valve MV Pk E: 0.86 MV Decel Time: 189.00 E'Lateral: 10.10 E'Medial: 7.99 E/E' Med: 10.70 E/E' Lat: 8.50 PHT: 55.00 MVA PHT: 4.00 Decel [place]: 4.59 Aortic Valve AoV Pk Angel: 0.96 AoV Mn Angel: 0.65 AoV VTI: 0.26 AoV Pk Grad: 4.00 Aov Mn Grad: 2.00 MAYO Cont.VTI: 2.47 LVOT LVOT Pk Angel: 0.72 LVOT Mn Angel: 0.45 LVOT VTI: 0.17 LVOT Pk Grad: 2.00 LVOT Mn Grad: 1.00 LVOT Diam: 2.20 LVOT Area: 3.80 Diastolic Function MV Pk E: 0.86 E'Medial: 7.99 E/E' Med: 10.70 E' Laterial: 10.10 E/E' Lat: 8.50 Right Ventricle TAPSE (mm): 15.10 TVS' Angel: 8.91 Tricuspid Valve TR Pk Angel: 3.05 TR Pk Grad: 37.00 RA Press: 15.00 RVSP: 52.00 Great Vessels Aorta Sinus of Valsalva: 3.75 2.0-3.[address] [place]: 2.81 1.7-3.4 cm Ao Asc: 3.70 2.1-3.4 cm Updated in Other Vendor System with Status of Final Jose Romero MD electronically signed on 07/26/2023 10:22:15 AM with status of Final
== END ==
LOC: HO.CARD 10:10
PROVIDERS: Visit Provider Internal Medicine Cardiovascular Disease
DX: I25.5 Ischemic cardiomyopathy (principal)
CPT/HCPCS: 93306; Q9957

== ENCOUNTER → 2023-07-24 10:13 | Outpatient (BNV) | payer MEDICARE, MEDICAID, SELFPAY | PROVIDERS: Visit Provider Internal Medicine | DX: I36.1 Nonrheumatic tricuspid (valve) insufficiency (principal); I35.8 Other nonrheumatic aortic valve disorders; I51.7 Cardiomegaly | CPT/HCPCS: 93306 ==

== ENCOUNTER 2023-08-13 10:56 | Outpatient (AMB) | payer MEDICARE, MEDICAID, SELFPAY ==
[2023-08-13 11:05] VITALS: BP 120/74; PULSE 60; BMI 30.7
--- NOTE | 2023-08-13 11:05 | MHC.OFFVIS ---
Vital Signs 08/13/23 11:05 Height 5 ft 10 in Weight 213 lb 13.574 oz BMI 30.7 BP 120/74 Blood Pressure Location Lt brachial Position Sitting Pulse 60 Intake Visit Reasons: 6 mth f/up s/p echo Intake Note: 6 month follow-up with ekg feeling good Card Hanger Required: No Allergies No Known Allergies [No Known Allergies*] Allergy (Verified 02/05/23 10:03) Medication List - Last Reconciled 08/13/23 by Ramon Claire MD allopurinol 100 mg PO DAILY apixaban (Eliquis) 5 mg PO BID ascorbate calcium (vitamin C) 1 g PO Q6H atorvastatin 80 mg PO BEDTIME cholecalciferol (vitamin D3) 25 mcg PO DAILY finasteride 5 mg PO DAILY 90 days folic acid 1 mg PO DAILY furosemide 20 mg PO DAILY losartan 50 mg PO DAILY metoprolol tartrate 50 mg PO BEDTIME metoprolol tartrate 100 mg PO DAILY omeprazole 20 mg PO DAILY vitamin B complex (B Complex-Vitamin B12 tablet) 1 tab PO DAILY vitamin E (dl, acetate) 400 units PO DAILY HPI Comments Details: Fadi comes for follow-up. He has been doing well from cardiac perspective. He has been losing weight while enter really. He denies any worsening symptoms of heart failure. Denies any worsening leg edema, abdominal distension, worsening shortness of breath, orthopnea, PND. Denies any prolonged palpitation irregular heartbeat. Denies any anginal symptoms. Echocardiogram shows [id number] LV systolic dysfunction with inferior wall motion abnormality with dilated right-sided chambers with elevated RV systolic pressure as well as right atrial pressures. He is taking all his medications regularly. Uses CPAP regularly. [facility] Medical History COVID-19 vaccine series completed Pulmonary hypertension Chronic atrial fibrillation Congestive heart failure CAD (coronary artery disease) Ischemic cardiomyopathy Elevated PSA History of bladder cancer BPH (benign prostatic hyperplasia) Sleep apnea History of posttraumatic stress disorder (PTSD) Elevated cholesterol HTN (hypertension) Myocardial infarction Gout Surgical History Hx of heart artery stent Hx of hernia repair Hx of tonsillectomy Hx of appendectomy History of prostate surgery Hx of cholecystectomy Hx of colonoscopy History of bladder surgery Family History Father Hodgkin lymphoma Mother No problems noted. Sister Melanoma Social History Household Members Other:: sister Are you a primary home health care provider to a significant other at home: No Do you presently have visiting nurse or other home services: No Alcohol intake: current Alcohol intake frequency: a few times a week Patient Tobacco Use Status: Former Tobacco user Tobacco use type: Cigarette Advance Directives Date on File: 09/05/10 Review of Systems Const Denies chills, Denies fatigue, Denies fever(s), Denies frequent falls, Denies weakness, Denies weight gain and Denies weight loss ENT Denies dizziness Card Denies chest pain, Denies leg edema, Denies lightheadedness, Denies palpitations, Denies dyspnea, Denies dyspnea on exertion, Denies orthopnea and Denies other (loss of consciousness) Resp Denies cough, Denies dyspnea and Denies dyspnea on exertion GI Denies hematochezia and Denies change in stool character Musc Denies abnormal gait, Denies muscle weakness, Denies numbness, Denies radiating pain into limb and Denies tingling Neuro Denies abnormal gait, Denies dizziness, Denies frequent falls, Denies numbness, Denies tingling and Denies weakness Endo Denies fatigue and Denies palpitations Physical Exam Vital Signs: Last Vital Signs Pulse 60 08/13/23 11:05 BP 120/74 08/13/23 11:05 BMI result Body Mass Index 30.7 Const General: cooperative, comfortable, no acute distress, alert and awake Nutritional Appearance: obese Orientation/consciousness: patient oriented x3 Limitations: no limitations Neck Neck: Yes trachea midline, Yes supple and Yes JVD Chest Chest palpation & inspection: normal inspection of the chest Resp Effort & Inspection: normal respiratory effort Auscultation: clear to auscultation bilaterally Cardio Jugular venous distension: JVD Palpation: normal PMI Rhythm: abnormal rhythm irregularly irregular Heart sounds: S1 normal heart sound present and S2 normal heart sound present GI Auscultation: normal bowel sounds Skin General skin exam: no rashes or lesions noted Neuro General: patient oriented x3 and no focal motor deficits Extrem General: Yes no clubbing, cyanosis or edema Psych Appearance: grossly normal Assessment & Plan Assessment & Plan (1) Congestive heart failure: Code(s): I50.9 - Heart failure, unspecified Category: Medical Plan: CHF with mild LV systolic dysfunction. Clinically euvolemic and well compensated despite echo findings suggestive of elevated filling pressures. Will continue current diuretic dose. Importance of daily weight monitoring avoidance of salt loading was discussed. Additional diuretics as need be. Continue current neurohormonal modulation with losartan and metoprolol therapy. CPAP therapy to be continued. Encouraged to continue to participate in physical activity as tolerated. (2) CAD (coronary artery disease): Comment: follows w/[facility] regularly Code(s): I25.10 - Atherosclerotic heart disease of [place] coronary artery without angina pectoris Category: Medical Plan: CAD with prior inferior wall myocardial infarction with no recurrent symptoms suggestive angina. Continue full oral anticoagulation with apixaban. Avoid aspirin therapy to reduce bleeding risk. Currently on high-intensity statin therapy continue the same. Target goal LDL less than 70 mg/dL. Blood pressure is currently well optimized. Advised to call me with any worsening symptoms. (3) Chronic atrial fibrillation: Code(s): I48.20 - Chronic atrial fibrillation, unspecified Category: Medical Plan: Chronic rate control atrial fibrillation has failed rhythm control approach in the past. Has done well with rate control approach. Continue current metoprolol therapy. Currently on full oral anticoagulation Eliquis. Continue the same. Monitor renal function every 6 months. Continue CPAP therapy. Will follow up in the clinic in 6 months time, sooner p.r.n.. Thank you for allowing me to partake in his care Orders: Orders Basic Metabolic Panel Today I50.9 - Heart failure, unspecified Complete Blood Count no Diff Today I50.9 - Heart failure, unspecified Coding Level of Care Code Est Pt Level 4 (60441) Diagnoses Congestive heart failure I50.9 CAD (coronary artery disease) I25.10 Chronic atrial fibrillation I48.20
== END 2023-08-13 11:24 | disposition home or self-care (01) ==
PROVIDERS: PCP General Practice; Visit Provider Internal Medicine Cardiovascular Disease
DX: I50.9 Heart failure, unspecified (principal); I25.10 Atherosclerotic heart disease of native coronary artery without angina pectoris; I48.20 Chronic atrial fibrillation, unspecified
CPT/HCPCS: 99214

== ENCOUNTER 2023-08-13 10:56 | Outpatient (REF) | payer MEDICARE, MEDICAID, SELFPAY ==
[2023-08-13 12:22] LABS: Hematocrit 39.5 % (42.0-52.0); Hemoglobin 12.4 g/dl (14.0-18.0); Mean Corpuscular HGB Conc 31.4 g/dl (31.0-36.0); Mean Corpuscular Hemoglobin 29.5 pg (27.0-33.0); Mean Platelet Volume 10.3 fL (9.4-12.4); Platelet Count 144 X10*3/uL (160-400); Red Cell Distribution Width 14.3 % (11.0-16.0); White Blood Count 6.8 X10*3/uL (4.8-10.8)
[2023-08-13 12:52] LABS: Anion Gap 9 (12-20); Blood Urea Nitrogen 11 mg/dL (9-16); Calcium 9.4 mg/dL (8.4-10.2); Carbon Dioxide 33 mmol/L (22-29); Chloride 105 mmol/L (96-108); Estimated Glomerular Filt Rate > 60; Glucose Random 98 mg/dL (60-115); Potassium 4.3 mmol/L (3.3-5.1); Sodium 143 mmol/L (135-145)
== END 2023-08-13 10:57 | disposition home or self-care (01) ==
LOC: HO.LAB 10:56
PROVIDERS: PCP General Practice; Visit Provider Internal Medicine Cardiovascular Disease
DX: I50.9 Heart failure, unspecified (principal); I25.10 Atherosclerotic heart disease of native coronary artery without angina pectoris; I48.20 Chronic atrial fibrillation, unspecified; R63.4 Abnormal weight loss
CPT/HCPCS: 36415; 80048; 85027; 99212

== ENCOUNTER 2023-09-11 10:34 | Outpatient (AMB) | payer MEDICARE, MEDICAID, SELFPAY ==
--- NOTE | 2023-09-11 10:40 | A.OFFVIS_ITS ---
Vital Signs 09/11/23 10:48 Height 5 ft 10 in Weight 226 lb 13.69 oz BMI 32.5 BP 142/80 H Blood Pressure Location Lt brachial Position Sitting Respiration 18 Pulse 52 Pulse Source Pulse Oximeter Pulse Oximetry (%) 97 Oxygen Delivery Method Room Air Intake Visit Reasons: Gout/CM Intake Note: Patient presents for gout. Feeling numbness and pins/needles on both feet. Allergies No Known Allergies [No Known Allergies*] Allergy (Verified 09/11/23 10:47) Medication List - Last Reconciled 09/11/23 by Mariluz Montenegro MD allopurinol 100 mg PO DAILY apixaban (Eliquis) 5 mg PO BID ascorbate calcium (vitamin C) 1 g PO Q6H atorvastatin 80 mg PO BEDTIME cholecalciferol (vitamin D3) 25 mcg PO DAILY finasteride 5 mg PO DAILY 90 days folic acid 1 mg PO DAILY furosemide 20 mg PO DAILY losartan 50 mg PO DAILY metoprolol tartrate 50 mg PO BEDTIME metoprolol tartrate 100 mg PO DAILY omeprazole 20 mg PO DAILY vitamin B complex (B Complex-Vitamin B12 tablet) 1 tab PO DAILY vitamin E (dl, acetate) 400 units PO DAILY HPI Comments Details: This is a 73-year-old male with gout who presents for follow-up. She was last seen by Dr. Mckenzie 08/2022. States that his gout has been doing quite well overall. No gout attacks in a very long time. Remains on allopurinol 100 mg daily. States that he has had a sciatica attack affecting his right lower extremity 04/2022, it improved on its own, he did not take any specific treatment for it. Denies to have intermittent episodes of right buttock pain that intermittently radiates to his his right lower extremity. Ongoing neck stiffness, intermittent shooting pain from his neck to his left shoulder. Gener alized stiffness. No swollen joints. Pins and needle sensation of his feet. [facility] Medical History (Updated 09/11/23 @ 11:17 by Mariluz Montenegro MD) COVID-19 vaccine series completed Pulmonary hypertension Chronic atrial fibrillation Congestive heart failure CAD (coronary artery disease) Ischemic cardiomyopathy Elevated PSA History of bladder cancer BPH (benign prostatic hyperplasia) Sleep apnea History of posttraumatic stress disorder (PTSD) Elevated cholesterol HTN (hypertension) Myocardial infarction Gout Surgical History Hx of heart artery stent Hx of hernia repair Hx of tonsillectomy Hx of appendectomy History of prostate surgery Hx of cholecystectomy Hx of colonoscopy History of bladder surgery Family History Father Hodgkin lymphoma Mother No problems noted. Sister Melanoma Social History Household Members Other:: sister Are you a primary critical care registered nurse to a significant other at home: No Do you presently have visiting nurse or other home services: No Alcohol intake: current Alcohol intake frequency: a few times a week Patient Tobacco Use Status: Former Tobacco user Tobacco use type: Cigarette Advance Directives Date on File: 09/05/10 Review of Systems ENT Reports neck pain Musc Reports back pain, Reports arthralgias, Denies joint swelling, Reports neck pain, Reports numbness, Reports radiating pain into limb, Reports stiffness and Reports tingling Neuro Reports numbness and Reports tingling Physical Exam Vital Signs: Last Vital Signs Pulse 52 09/11/23 10:48 Resp 18 09/11/23 10:48 BP 142/80 H 09/11/23 10:48 Pulse Ox 97 09/11/23 10:48 Oxygen Delivery Method Room Air 09/11/23 10:48 BMI result Body Mass Index 32.5 Const General: cooperative, healthy appearing and comfortable Nutritional Appearance: obese Orientation/consciousness: patient oriented x3 Limitations: ambulation with cane HEENT Head: Yes normocephalic and Yes atraumatic Resp Effort & Inspection: normal respiratory effort and able to speak in complete sentences Skin General skin exam: no rashes or lesions noted Neuro General: patient oriented x3 Extrem Other: No active synovitis Walked with a stooped posture Limited range of motion of neck in all directions Negative straight leg raise test bilaterally Assessment & Plan Assessment & Plan (1) Gout: Comment: Allopurinol 2017-present -currently on 100 mg by mouth daily Code(s): M10.9 - Gout, unspecified Category: Medical Qualifiers: Gout site: unspecified site Gout etiology: idiopathic Chronicity: chronic Presence of tophus: without tophus Qualified Code(s): M1A.00X0 - Idiopathic chronic gout, unspecified site, without tophus (tophi) Plan: This is a 73-year-old male with gout who presents for follow-up. This is his 1st visit with me. He used to follow-up with Dr. Mckenzie. Patient has not had any gout attacks in years. Remains on allopurinol 100 mg daily. Continue allopurinol 100 mg daily Labs before next visit in a year (2) Generalized osteoarthritis: Code(s): M15.9 - Polyosteoarthritis, unspecified Category: Medical Plan: I think patient has generalized osteoarthritis affecting multiple joints including his spine. He had an attack of sciatica last year, this has since resolved. Discussed pain management evaluation however upon evaluation today I do not see any specific painful region or radiculopathy that would benefit from pain management evaluation. I think physical therapy should be tried 1st. PT ordered. If no improvement, patient can be referred to pain management (3) Lumbar degenerative disc disease: Code(s): M51.36 - Other intervertebral disc degeneration, lumbar region Category: Medical (4) Degenerative cervical disc: Code(s): M50.30 - Other cervical disc degeneration, unspecified cervical region Category: Medical (5) Peripheral neuropathy: Code(s): G62.9 - Polyneuropathy, unspecified Category: Medical Qualifiers: Peripheral neuropathy type: polyneuropathy, unspecified Qualified Code(s): G62.9 - Polyneuropathy, unspecified Plan: Discussed with PCP Plan I spent 30 minutes reviewing patient's chart, evaluating patient, ordering diagnostic workup, counseling patient and documenting in the chart Orders: Orders PT Evaluation and Treatment Today M47.812 - Spondylosis without myelopathy or radiculopathy, cervical region, M51.36 - Other intervertebral disc degeneration, lumbar region Comprehensive Met. Panel 1 Year M1A.00X0 - Idiopathic chronic gout, unspecified site, without tophus (tophi) Uric Acid 1 Year M1A.00X0 - Idiopathic chronic gout, unspecified site, without tophus (tophi) Coding Level of Care Code Est Pt Level 4 (83943) Diagnoses Idiopathic chronic gout without tophus, unspecified site M1A.00X0 Gout site: unspecified site Gout etiology: idiopathic Chronicity: chronic Presence of tophus: without tophus Generalized osteoarthritis M15.9 Lumbar degenerative disc disease M51.36 Degenerative cervical disc M50.30 Peripheral polyneuropathy G62.9 Peripheral neuropathy type: polyneuropathy, unspecified
[2023-09-11 10:48] VITALS: BP 142/80; PULSE 52; RESP 18; O2SAT 97; BMI 32.5
== END 2023-09-11 11:15 | disposition home or self-care (01) ==
PROVIDERS: PCP General Practice; Visit Provider Student in an Organized Health Care Education/Training Program
DX: M1A.00X0 Idiopathic chronic gout, unspecified site, without tophus (tophi) (principal); M15.9 Polyosteoarthritis, unspecified; M51.36 Other intervertebral disc degeneration, lumbar region; M50.30 Other cervical disc degeneration, unspecified cervical region; G62.9 Polyneuropathy, unspecified
CPT/HCPCS: 99214

== ENCOUNTER → 2023-09-11 10:34 | Outpatient (BNVA) | payer MEDICARE, MEDICAID, SELFPAY | PROVIDERS: PCP General Practice; Visit Provider Student in an Organized Health Care Education/Training Program | DX: M1A.00X0 Idiopathic chronic gout, unspecified site, without tophus (tophi) (principal); M15.9 Polyosteoarthritis, unspecified; M51.36 Other intervertebral disc degeneration, lumbar region; M50.30 Other cervical disc degeneration, unspecified cervical region; G62.9 Polyneuropathy, unspecified; Z79.899 Other long term (current) drug therapy | CPT/HCPCS: 99212 ==

== ENCOUNTER 2023-11-05 10:52 | Outpatient (AMB) | payer MEDICARE, MEDICAID, SELFPAY ==
--- NOTE | 2023-11-05 11:16 | A.OFFVIS_ITS ---
Intake Visit Reasons: 1Y Cystoscopy(Bladder Ca) Intake Note: Patient is Present for Cystoscopy Urology Med: Finasteride, Antibiotic Allergy: None Blood Thinner: Eliquis Last Cytology- 2022 Last PSA- .(2022) Sent for Cytology Allergies No Known Allergies [No Known Allergies*] Allergy (Verified 09/11/23 10:47) HPI Comments Details: Fadi is a pleasant male. He is a patient of Dr. Russ. He is seen for the following urologic condition - bladder cancer - lower urinary tract symptoms Here for check cystoscopy - bladder with BCG change but otherwise stable Open bladder neck PSA review - 05/17 2.2 stable Continue finasteride Bladder surveillance yearly Bladder cancer initial diagnosis 2012 superficial low-grade treatment TURBT with BCG initiation superficial low-grade initial TURBT 2012 intervention - multiple previous TURBT procedures - BCG 6 week course x3 last in 2015 currently undergoing surveillance protocol cystoscopy - 08/15 NAD, 03/17 NAD, 11/16 NAD cytology - 08/15 NAD, 11/17 NAD continue with surveillance Lower urinary tract symptoms Weakness of stream Tolerable symptoms Addition of finasteride for elevated PSA and recurrent tissue TURP 2007, 2016 PSA 02/13 5.4, 08/15 4.4, 12/15 5.8 9%, 07/16 2.8, 05/17 2.2 continue to follow PSA [facility] Medical History (Updated 09/11/23 @ 11:17 by Mariluz Montenegro MD) COVID-19 vaccine series completed Pulmonary hypertension Chronic atrial fibrillation Congestive heart failure CAD (coronary artery disease) Ischemic cardiomyopathy Elevated PSA History of bladder cancer BPH (benign prostatic hyperplasia) Sleep apnea History of posttraumatic stress disorder (PTSD) Elevated cholesterol HTN (hypertension) Myocardial infarction Gout Surgical History Hx of heart artery stent Hx of hernia repair Hx of tonsillectomy Hx of appendectomy History of prostate surgery Hx of cholecystectomy Hx of colonoscopy History of bladder surgery Family History Father Hodgkin lymphoma Mother No problems noted. Sister Melanoma Social History Household Members Other:: sister Are you a primary care specialist to a significant other at home: No Do you presently have visiting nurse or other home services: No Alcohol intake: current Alcohol intake frequency: a few times a week Patient Tobacco Use Status: Former Tobacco user Tobacco use type: Cigarette Advance Directives Date on File: 09/05/10 Review of Systems Const Denies chills and Denies fever(s) Card Reports no additional complaints and Denies syncope Resp Denies cough GI Denies abdominal pain and Denies heartburn Reports as per HPI and Denies change in libido Neuro Denies syncope Psych Denies change in libido Endo Denies change in libido Physical Exam Const General: cooperative, healthy appearing, comfortable and no acute distress Orientation/consciousness: patient oriented x3 HEENT Face and sinus: Yes normal facial exam Mouth: moist mucous membranes Neck Neck: Yes normal visual inspection, Yes full ROM and Yes trachea midline Chest Chest palpation & inspection: normal inspection of the chest Resp Effort & Inspection: normal respiratory effort, able to speak in complete sentences and no respiratory distress GI Inspection: Yes normal to inspection Back/Spine/Pelvis Cervical Spine: normal cervical lordosis Thoracic/Lumbar Spine: thoracic and lumbar spine normal to inspection Skin General skin exam: no rashes or lesions noted Neuro General: patient oriented x3, gait normal, tone normal and moves all extremities Extrem General: Yes normal to inspection and Yes capillary refill normal Office Procedures Cystoscopy Consent Discussed risk and benefit or proposed procedure with the patient. Information consent for procedure given to the patient. Discussed technical aspects, risks, benefits and alternatives in full. Addressed all of the patient's questions and concerns regarding the procedure. The patient demonstrated knowledge and understanding. They wish to proceed with this procedure. Preparation The patient was prepped in the usual manner. A director skills was present and in the room. Genitalia was prepped with betadine solution in a sterile manner. Lido darlene Jelly 2% was placed into the urethra and 16Fr flexible Olympus cystoscope was inserted into the meatus after adequate lubrication. Procedure Cystoscopy performed using a disposable Urovue digital 16 Lithuanian cystoscope. Meatus uncircumcised Urethra anterior and posterior urethra normal Prostatic Urethra TURP defect Bladder examination with retroflexion of cystoscope Bladder Orifices normal shape and position Bladder Capacity median Trabeculations grade 2 Cellule Formation yes Diverticulum Formation - Mucosal Erythema - Bladder Tumor prior scarring [id number] DISPOSABLE SCOPE URO-G FLEXIBLE SCOPE Procedure code (CPT) selection complete Office Meds lidocaine HCl 2 % mucosal jelly in applicator Performing Provider: Dequan Villegas MD Performing Location: [facility] [place] [place] [facility] Administered by: Andrey Cardona LPN on 11/05/23 11:30 Dose Route Admin Location Dispensed Lot Number Expiration Date ND Press Set Up 10 mL intra-urethral 10 mL nitrofurantoin monohydrate/macrocrystals 100 mg capsule Performing Provider: Dequan Villegas MD Performing Location: [facility] [place] [place] [facility] Administered by: Andrey Cardona LPN on 11/05/23 11:30 Dose Route Admin Location Dispensed Lot Number Expiration Date NDC Press Set Up 100 mg PO 1 cap naproxen 500 mg tablet Performing Provider: Dequan Villegas MD Performing Location: [facility] [place] [place] [facility] Administered by: Andrey Cardona LPN on 11/05/23 11:30 Dose Route Admin Location Dispensed Lot Number Expiration Date NDC Press Set Up 500 mg PO 1 tab Results AMB Urinalysis, Automated UA Leukoctes 0 Bayron/uL Last Edit by SIMI Galan on 11/05/23 11:32 UA Nitrite Negative Last Edit by Nory Giron [facility] on 11/05/23 11:32 UA Urobilinogen 0.2 mg/dL Last Edit by Nory Giron [facility] on 11/05/23 11:3 2 UA Protein 15 mg/dL Last Edit by Nory Giron [facility] on 11/05/23 11:32 UA pH 5.5 Last Edit by Nory Giron [facility] on 11/05/23 11:32 UA Blood 0 Geovany/uL Last Edit by Nory Giron [facility] on 11/05/23 11:32 UA Specific [place] 1.020 Last Edit by Nory Giron [facility] on 11/05/23 11: 32 UA Ketone Negative Last Edit by Nory Giron [facility] on 11/05/23 11:32 UA Bilirubin 0 mg/dL Last Edit by Nory Giron [facility] on 11/05/23 11:32 UA Glucose 0 mg/dL Last Edit by Nory Giron [facility] on 11/05/23 11:32 Results Reviewed Results Reviewed: Laboratory Last Values Urine pH (Auto) 5.5 11/05/23 11:30 Specific [place] (Auto) 1.020 11/05/23 11:30 Urine Protein (Auto) 15 mg/dL 11/05/23 11:30 Glucose (UA)(Auto) 0 mg/dL 11/05/23 11:30 Urine Ketones (Auto) Negative 11/05/23 11:30 Urine Blood (Auto) 0 Geovany/uL 11/05/23 11:30 Urine Nitrite (Auto) Negative 11/05/23 11:30 Urine Bilirubin (Auto) 0 mg/dL 11/05/23 11:30 Urine Urobilinogen (Auto) 0.2 mg/dL 11/05/23 11:30 Leukocyte Esterase (Auto) 0 Bayron/uL 11/05/23 11:30 Assessment & Plan Assessment & Plan (1) Bladder cancer: Comment: Recurrent superficial 2013 Code(s): C67.9 - Malignant neoplasm of bladder, unspecified Category: Medical (2) BPH (benign prostatic hyperplasia): Code(s): N40.0 - Benign prostatic hyperplasia without lower urinary tract symptoms Category: Medical Plan Continue surveillance Orders: Orders Urine Cytology Today C67.9 - Malignant neoplasm of bladder, unspecified AMB Urinalysis Automated Today Z13.9 - Encounter for screening, unspecified AMB Cystoscopy Today C67.9 - Malignant neoplasm of bladder, unspecified, N40.0 - Benign prostatic hyperplasia without lower urinary tract symptoms Patient Instructions: Imaging studies, laboratory and physical exam results were discussed and reviewed in detail. No major barriers to patient understanding were identified. An opportunity to ask questions regarding the treatment plan was provided. All questions were answered. The patient expressed understanding and agreement with the above treatment plan. The patient is aware they should contact our office by phone for worsening of their current condition or the appearance of new urologic symptoms. Compliance is encouraged with any medications and followup testing that is ordered. It is a privilege to participate in the urologic care of your patient. If you have any questions or concerns regarding treatment for the above conditions, or other urologic issues, please do not hesitate to contact me. The office telephone contact is [phone]. This note is constructed using voice recognition software. While every effort has been made to ensure accuracy fbi special agent errors may have been included. Yours sincerely, Dr Dequan Villegas MD, [facility] - Urology Providers of Expert, Compassionate Care for the Genitourinary System Coding Level of Care Code Est Pt Level 4 (38818) Diagnoses Bladder cancer C67.9 BPH (benign prostatic hyperplasia) N40.0 CPT Codes Cystoscopy - CPT: 19866-[id number] ([id number])
== END 2023-11-05 11:47 | disposition home or self-care (01) ==
PROVIDERS: PCP General Practice; Visit Provider Urology
DX: C67.9 Malignant neoplasm of bladder, unspecified (principal); N40.0 Benign prostatic hyperplasia without lower urinary tract symptoms; Z13.9 Encounter for screening, unspecified
CPT/HCPCS: 52000; 99213

== ENCOUNTER 2023-11-05 10:52 | Outpatient (REF) | payer MEDICARE, MEDICAID, SELFPAY ==
[2023-11-05 16:39] LABS: Urine Cytology See Pathology rpt
== END 2023-11-05 10:53 | disposition home or self-care (01) ==
LOC: HO.LAB 10:52
PROVIDERS: PCP General Practice; Visit Provider Urology
DX: C67.9 Malignant neoplasm of bladder, unspecified (principal); N40.0 Benign prostatic hyperplasia without lower urinary tract symptoms
CPT/HCPCS: 52000; 81003; 88112; 99212

== ENCOUNTER 2023-12-10 13:00 | Outpatient (RCR) | payer MEDICARE, MEDICAID, SELFPAY ==
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
--- NOTE | 2023-12-10 14:46 | MHC.PT.DC ---
[facility] [place] Office [place] Office [place] Office [address] Enma Mercado [address] [phone] F: [phone] F: [phone] F: [phone] F: [phone] Physical Therapy Discharge Report Diagnosis: CERVICAL AND LUMBAR SPINE DISC DEGENERATION Date of Surgery: NA Date of Evaluation: 11/01/23 Date of Discharge: 12/10/23 Treatments to Date: 5 Cancellations to Date: No Shows to Date: Discharge Status: Improved Function Independent with HEP Patient Elected to Stop Recommend MD Follow-up Discharge Summary: Pt REPORTING OVERALL FEELING BETTER AND KNOWS WHAT TO DO TO HELP WITH SXS Electronically signed by: LENCHO CUEVA PT Please sign and return to therapist. Thank you for your referral.
== END 2023-12-10 14:47 | disposition home or self-care (01) ==
LOC: HO.PT 13:00
PROVIDERS: PCP General Practice; Visit Provider Student in an Organized Health Care Education/Training Program
DX: M47.812 Spondylosis without myelopathy or radiculopathy, cervical region (principal); M51.36 Other intervertebral disc degeneration, lumbar region
CPT/HCPCS: 97110; 97140; 97162; 97535

== ENCOUNTER 2024-03-30 10:56 | Outpatient (AMB) | payer MEDICARE, MEDICAID, SELFPAY ==
--- NOTE | 2024-03-30 11:03 | A.OFFVIS_ITS ---
Vital Signs 03/30/24 11:04 Height 5 ft 10 in Weight 220 lb 7.396 oz BMI 31.6 BP 142/78 H Blood Pressure Location Lt brachial Position Sitting Pulse 72 Intake Visit Reasons: 6 mth f/up Intake Note: 6 month follow-up feeling ok little sob Powderer Required: No Allergies No Known Allergies [No Known Allergies*] Allergy (Verified 09/11/23 10:47) Medication List - Last Reconciled 03/30/24 by Ramon Claire MD allopurinol 100 mg PO DAILY apixaban (Eliquis) 5 mg PO BID ascorbate calcium (vitamin C) 1 g PO Q6H atorvastatin 80 mg PO BEDTIME cholecalciferol (vitamin D3) 25 mcg PO DAILY finasteride 5 mg PO DAILY 90 days folic acid 1 mg PO DAILY furosemide 20 mg PO DAILY losartan 50 mg PO DAILY metoprolol tartrate 50 mg PO BEDTIME metoprolol tartrate 100 mg PO DAILY omeprazole 20 mg PO DAILY vitamin B complex (B Complex-Vitamin B12 tablet) 1 tab PO DAILY vitamin E (dl, acetate) 400 units PO DAILY HPI Comments Details: Fadi comes for follow-up. He said he has been having issues with neuropathy in both his feet. Unclear etiology as yet. Has not seen neurologist as per him. However he also complains of worsening exertional shortness of breath NYHA class 3, says walk 50 ft and gets short of breath. Denies any clear orthopnea, PND, abdominal distention, leg edema. No clear weight gain. Taking all his medication including to diuretic therapy without issues. Last echocardiogram last June had shown LVEF of 40-45%. He has chronic atrial fibrillation. Uses CPAP regularly. Denies any exertional chest pain. No prolonged palpitation irregular heartbeat. No lightheadedness, syncope. [facility] Medical History Heart failure with reduced ejection fraction COVID-19 vaccine series completed Pulmonary hypertension Chronic atrial fibrillation Congestive heart failure CAD (coronary artery disease) Ischemic cardiomyopathy Elevated PSA History of bladder cancer BPH (benign prostatic hyperplasia) Sleep apnea History of posttraumatic stress disorder (PTSD) Elevated cholesterol HTN (hypertension) Myocardial infarction Gout Surgical History Hx of heart artery stent Hx of hernia repair Hx of tonsillectomy Hx of appendectomy History of prostate surgery Hx of cholecystectomy Hx of colonoscopy History of bladder surgery Family History Father Hodgkin lymphoma Mother No problems noted. Sister Melanoma Social History Household Members Other:: sister Are you a primary healthcare consultant to a significant other at home: No Do you presently have visiting nurse or other home services: No Alcohol intake: current Alcohol intake frequency: a few times a week Patient Tobacco Use Status: Former Tobacco user Tobacco use type: Cigarette Advance Directives Date on File: 09/05/10 Review of Systems Const Denies chills, Denies fatigue, Denies fever(s), Denies frequent falls, Denies weakness, Denies weight gain and Denies weight loss ENT Denies dizziness Card Denies chest pain, Denies leg edema, Denies lightheadedness, Denies palpitations, Denies dyspnea, Denies dyspnea on exertion, Denies orthopnea and Denies other (loss of consciousness) Resp Denies cough, Denies dyspnea and Denies dyspnea on exertion GI Denies hematochezia and Denies change in stool character Musc Denies abnormal gait, Denies muscle weakness, Denies numbness, Denies radiating pain into limb and Denies tingling Neuro Denies abnormal gait, Denies dizziness, Denies frequent falls, Denies numbness, Denies tingling and Denies weakness Endo Denies fatigue and Denies palpitations Physical Exam Vital Signs: Last Vital Signs Pulse 72 03/30/24 11:04 BP 142/78 H 03/30/24 11:04 BMI result Body Mass Index 31.6 Const General: cooperative, comfortable, no acute distress, alert and awake Nutritional Appearance: obese Orientation/consciousness: patient oriented x3 Limitations: no limitations Neck Neck: Yes trachea midline, Yes supple and Yes JVD Chest Chest palpation & inspection: normal inspection of the chest Resp Effort & Inspection: normal respiratory effort Auscultation: clear to auscultation bilaterally Cardio Jugular venous distension: JVD Palpation: normal PMI Rhythm: abnormal rhythm irregularly irregular Heart sounds: S1 normal heart sound present and S2 normal heart sound present GI Auscultation: normal bowel sounds Skin General skin exam: no rashes or lesions noted Neuro General: patient oriented x3 and no focal motor deficits Extrem General: Yes no clubbing, cyanosis or edema Psych Appearance: grossly normal Assessment & Plan Assessment & Plan (1) Heart failure with reduced ejection fraction: Code(s): I50.20 - Unspecified systolic (congestive) heart failure Category: Medical Plan: Heart failure with reduced ejection fraction this elderly gentleman with prior history of atrial fibrillation as well as ischemic cardiomyopathy which had improved with management of atrial fibrillation but now has persistent atrial fibrillation, chronic. LV ejection fraction with reduced without any evidence of ischemia at this point time. He also developed bilateral neuropathy. Raises the possibility of amyloidosis although less likely. Will suggest some testing in the near future. Given his low EF and worsening symptoms without any signs of congestive heart failure with switch him from losartan to Entresto therapy and also add Jardiance 10 mg to his regimen in addition to his metoprolol for neurohormonal modulation. Continue aggressive rate control approach. Continue CPAP therapy. Daily weight monitoring avoidance salt loading was discussed additional diuretics as need be. Also making referral to phase 2 cardiac rehabilitation for his worsening shortness of breath to improve his functional capacity. (2) Chronic atrial fibrillation: Code(s): I48.20 - Chronic atrial fibrillation, unspecified Category: Medical Plan: Chronic atrial fibrillation has failed rhythm control approach. Continue rate control approach on current metoprolol therapy. Currently on full oral anticoagulation with apixaban. Continue the same. Semi annual renal function test should be pursued. Continue CPAP therapy. Continue aggressive blood pressure control which is currently well optimized. (3) CAD (coronary artery disease): Comment: follows w/[facility] regularly Code(s): I25.10 - Atherosclerotic heart disease of [place] coronary artery without angina pectoris Category: Medical Plan: CAD with prior inferior wall myocardial infarction with no recent symptoms of angina. Continue full oral anticoagulation with apixaban. Continue aggressive blood pressure control. Goal blood pressure less than 130/84. Encouraged to increase activity level as tolerated. Continue high-intensity statin therapy with target goal LDL closer to 55 mg/dL. Will follow up in the clinic in 3 months time. Greater than 40 minutes was spent in managing his complex care and explaining him the management plan. Orders: Orders Basic Metabolic Panel 2 Weeks I50.20 - Unspecified systolic (congestive) heart failure Cardiac Rehab Today I50.20 - Unspecified systolic (congestive) heart failure Protein Electrophoresis, Serum 2 Weeks I50.20 - Unspecified systolic (congestive) heart failure Protein Electrophoresis,Ran Ur 2 Weeks I50.20 - Unspecified systolic (harshad estive) heart failure Medications: New sacubitril-valsartan 24-26 mg (Entresto) 1 tab PO BID 60 tabs 4RF empagliflozin (Jardiance) 10 mg PO DAILY 30 tabs 3RF Coding Level of Care Code Est Pt Level 5 (74722) Complex EM visit Add On G2211 Diagnoses Heart failure with reduced ejection fraction I50.20 Chronic atrial fibrillation I48.20 CAD (coronary artery disease) I25.10
[2024-03-30 11:04] VITALS: BP 142/78; PULSE 72; BMI 31.6
--- OUTSIDE RECORDS SUMMARY | 2024-03-30 12:03 | XMS_ITS | Encounter Summary ---
Author Organization [employer] [facility] Address [address] [place] [address] [address] [place] [address] Care Team Providers Care Aeronautical Engineer Name Role Phone Kelsey Mccormick MD Primary Care Provider [phone] Encounter Details Date Type Department Care Team (Late st Contact Info) Description 10/25/2022 Orders Only [facility] [address] [place], [place] [id number] Provider, MD Melisa Social History Tobacco Use Types Packs/Day Years Used Date Smoking Tobacco: Former Cigarettes Q uit: 2008 Smokeless Tobacco: Never Alcohol Use Standard Drinks/Week Comments Yes 2 (1 standard drink = 0.6 oz pur e alcohol) Twice weekly or holiday Sex and Gender Information Value Date Recorded Sex Assigned at Male 12/25/2021 10:19 AM EDT Legal Sex Male 10:19 AM EDT Gender Identity Male 12/25/2021 10:19 AM EDT Sexual Orientation Straight 12/25/2021 10 :19 AM EDT documented as of this encounter Plan of Treatment Not on file documented as of this encounter Procedures Procedure Name Priority Date/Time Associated Diagnosis Comments HM COLONOSCOPY Routine 02/17/2020 documented in this encounter Results * Hm Colonoscopy (02/17/2020) Historical Provider HEALTH MAINTENANCE Final Result documented in this encounter Visit Diagnoses Not on filedocumented in this encounter Care Teams Aeronautical Engineer Relationship Specialty Start Date End Date Kelsey Mccormick MD [address] [place] [address] PCP - General Family Medicine 04/05/20 documented as of this encounter
--- OUTSIDE RECORDS SUMMARY | 2024-03-30 12:03 | XMS_ITS | Encounter Summary ---
Author Organization [employer] Address [address] [place] [address] [address] [place] [address] Care Team Providers Care Maintenance Worker Swimming Pool Name Role Phone Kelsey Mccormick MD Primary Care Provider Encounter Details Date Type Department Care Team (Late st Contact Info) Description 10/25/2022 Abstract [facility] [address] [place] [address] Shani Diaz Social History Tobacco Use Types Packs/Day Years [...] on file documented as of this encounter Visit Diagnoses Not on filedocumented in this encounter Care Teams Maintenance Worker Swimming Pool Relationship Specialty Start Date End Date Kelsey Mccormick MD [address] [place] [address] PCP - General Family Medicine 04/05/20 documented as of this encounter
--- OUTSIDE RECORDS SUMMARY | 2024-03-30 12:03 | XMS_ITS | Clinical Summary ---
Author Organization [facility] Address [address] [place] [address] Phone Care Team Providers Care Wire Spiral Binder Name Role Phone Arielle Sandoval NP Primary Care Provider [phone] Medications senna (SENOKOT) 8.6 MG tablet Take 1 capsule by mouth 1 (one) time each day Active allopurinol (ZYLOPRIM) 100 MG tablet Take 2 tablets by mouth 1 (one) time each day Active aspirin (ST FADI) 81 MG EC tablet Take 1 tablet by mouth 1 (one) time each day Active atorvastatin (Lipitor) 80 MG tablet Take 1 tablet by mouth 1 (one) time each day Active calcium carbonate (OS-AIDEN) 600 MG tablet Take 1 tablet by mouth 1 (one) time each day Active cholecalciferol (VITAMIN D-3) 25 MCG (1000 UT) capsule Take 1 capsule by mouth 1 (one) time each day Active cyclobenzaprine (FLEXERIL) 10 MG tablet Take 1 tablet by mouth 1 (one) time each day Active dabigatran etexilate (Pradaxa) 150 MG capsule Take 1 capsule by mouth 2 (two) times a day Active docusate sodium (Colace) 100 MG capsule Take 1 capsule by mouth 1 (one) time each day Active folic acid (FOLVITE) 1 MG tablet Take 1 tablet by mouth 1 (one) time each day Active losartan (COZAAR) 25 MG tablet Take 1 tablet by mouth 1 (one) time each day Active metoprolol tartrate (LOPRESSOR) 50 MG tablet Take 2 tablets by mouth every morning Active omeprazole OTC (PriLOSEC OTC) 20 MG EC tablet Take 1 tablet by mouth 1 (one) time each day Active Active Problems Problem Noted Date Diagnosed Date Chronic kidney disease stage 2 12/20/2020 Essential hypertension 12/20/2020 Hypertensive heart and renal disease with (congestive) heart failure 12/20/2020 Hyponatremia 12/20/2020 Family History Medical History Relation Comments Cancer Father Diabetes Sibling Relation Status Comments Father Mother Sibling Social History Tobacco Use Types Packs/Day Years Used Date Smoking Tobacco: Former Smokeless Tobacco: Former Alcohol Use Standard Drinks/Week Comments Yes 0 (1 standard drink = 0.6 oz pure alcohol) Alcoholic Drinks/day: Occasional social drink Sex and Gender Information Value Date Recorded Sex Assigned at Not on file Legal Sex Male 5:01 PM EST Gender Identity Not on file Sexual Orientation Not on file Last Filed Vital Signs Vital Sign Reading Time Taken Comments Blood Pressure 130/80 10/15/2018 12:00 PM EDT Pulse 67 10/15/2018 12:00 PM EDT Temperature - - Respiratory Rate - - Oxygen Saturation - - Inhaled Oxygen Concentration - - Weight 115 kg (254 lb) 10/15/2018 12:00 PM EDT Height 177.8 cm (5' 10 ) 10/14/2019 12:00 PM EDT Body Mass Index 36.45 10/15/2018 12:00 PM EDT Plan of Treatment Health Maintenance Due Date Last Done Comments Pneumococcal Vaccine: 65+ Ye ars (1 of 2 - PCV) 1955 Colorectal Cancer Screening: Annual FOBT 1998 Colorectal Cancer Screening: Colonoscopy 1998 Colorectal Cancer Screening: Sigmoidoscopy 1998 Influenza Vaccine (#1) 2023 Hepatitis B Vaccine Aged Out No longe r eligible based on patient's age to complete this topic Insurance [place] Care Teams Wire Spiral Binder Relationship Specialty Start Date End Date Arielle Sandoval NP PCP - General 03/07/20
--- OUTSIDE RECORDS SUMMARY | 2024-03-30 12:03 | XMS_ITS | Clinical Summary ---
Author Organization [employer] Address [address] [place] [address] [address] [place] [address] Care Team Providers Care Service Station Manager Name Role Phone Kelsey Mccormick MD Primary Care Provider [phone] Allergies No known active allergies Medications gabapentin (Neurontin) 100 MG capsule take 1 (100MG) by oral route every bedtime 90 capsule 3 3 Active allopurinol (Zyloprim) 100 MG tablet 3 Active Eliquis 5 MG tablet Take 5 mg by mouth 2 times daily. 3 Active finasteride (Proscar) 5 MG tablet Take 5 mg by mouth in the morning. 3 Active omeprazole OTC (PriLOSEC OTC) 20 MG EC tablet Active furosemide (Lasix) 20 MG tablet Take 20 mg by mouth in the morning. 3 Active cholecalciferol (Vitamin D-3) 25 MCG (1000 UT) capsule Take 1 capsule by mouth. Active calcium carbonate 1500 (600 Ca) MG tablet Take 1 tablet by mouth. 2 Active Cyanocobalamin ER (RA Vitamin B-12 TR) 1000 MCG tablet controlled-release take one tab po daily 5 Active folic acid (Folvite) 1 MG tablet take 1 tablet (1MG) by oral route every day 1 Active ascorbic acid (Vitamin C) 1000 MG tablet Take 1,000 mg by mouth in the morning. Active alpha tocopherol (Vitamin E) 400 units capsule Take 400 Units by mouth in the morning. 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 Overview (10/02/2022): Since 2012 Hyponatremia 12/20/2020 Stage 2 chronic kidney disease 05/15/2017 Atrial fibrillation 12/07/2014 Overview (09/20/2022): Care managed by Cardiology Treating Eliquis 5 mg BID Metoprolol 100 mg daily Assessment & Plan (09/20/2022 5:55 PM EDT): Continue with Cardiology BPH without urinary obstruction 12/07/2014 Congestive heart failure 12/07/2014 Coronary artery disease invo lving [place] coronary artery of [place] heart without angina pectoris 12/07/2014 Overview (09/20/2022): Hx of PA RCA stent Essential hypertension 12/07/2014 Gout 12/07/2014 History of myocardial infarction 12/07/2014 Malignant tumor of urinary bladder 12/07/2014 Obstructive sleep apnea syndrome 12/07/2014 Encounters Date Type Department Care Team Description 02/05/2024 Refill [facility] [address] [place] [id number] Kelsey Mccormick MD from Last 3 Months Social History Tobacco Use Types Packs/Day Years Used Date Smoking Tobacco: Former Cigarettes Q uit: 2008 Smokeless Tobacco: Never Tobacco Cessation:Counseling Given: Not Answered Alcohol Use Standard Drinks/Week Comments Yes 2 (1 standard drink = 0.6 oz pur e alcohol) Twice weekly or holiday Sex and Gender Information Value Date Recorded Sex Assigned at Male 12/25/2021 10:19 AM EDT Legal Sex Male 10:19 AM EDT Gender Identity Male 12/25/2021 10:19 AM EDT Sexual Orientation Straight 12/25/2021 10 :19 AM EDT Last Filed Vital Signs Vital Sign Reading Time Taken Comments Blood Pressure 130/76 09/20/2022 10:51 AM EDT Pulse 65 09/20/2022 10:51 AM EDT Temperature - - Respiratory Rate 18 09/20/2022 10:51 AM EDT Oxygen Saturation 96% 09/20/2022 10:51 AM EDT Inhaled Oxygen Concentration - - Weight 107 kg (234 lb 12.8 oz) 09/20/2022 10:51 AM EDT Height 177.8 cm (5' 10 ) 09/20/2022 10:51 AM EDT Body Mass Index 33.69 09/20/2022 10:51 AM EDT Plan of Treatment Health Maintenance Due Date Last Done Comments CT Colonography 1949 Depression Screening 1949 FIT DNA/Cologuard 1949 FIT 1949 FOBT 1949 SDOH Screening 1950 Sigmoidoscopy 1949 Alcohol/Substance Use Screening 1961 Hepatitis C Screening 1967 RSV Patients and Patients Aged 60 years or older (1 - Risk 60-74 years 1-dose series) 2009 Tobacco Screening 09/21/2023 09/20/2022 COVID-19 Vaccine ( season) 2023 01/08/2022, 06/26/2021, 02/03/2021, Additional history exists Influenza Vaccine (#1) 2023 , 05/19/2021, 01/15/2020, Additional history exists DTaP/Tdap/Td Vaccines (2 - Td or Tdap) 12/07/2024 12/07/2014 Colonoscopy 02/16/2025 02/17/2020 Colorectal Cancer Screening 02/16/2025 Lipid Panel 11/17/2026 11/17/2021, 08/19/2020 Pneumococcal Vaccine: 50+ Years Completed 01/11/2016, 12/07/2014, 05/31/2006 Zoster Vaccines Completed 01/15/2020, 10/27, 12/07/2014 HIB Vaccines Aged Out No longer eligi ble based on patient's age to complete this topic HPV Vaccines Aged Out No longer eligi ble based on patient's age to complete this topic Hepatitis A Vaccines Aged Out No long er eligible based on patient's age to complete this topic Hepatitis B Vaccines Aged Out No long er eligible based on patient's age to complete this topic IPV Vaccines Aged Out No longer eligi ble based on patient's age to complete this topic Meningococcal Vaccine Aged Out No jesenia michael eligible based on patient's age to complete this topic RSV under 20 months Aged Out No longe r eligible based on patient's age to complete this topic Rotavirus Vaccines Aged Out No longer eligible based on patient's age to complete this topic Procedures Procedure Name Priority Date/Time Associated Diagnosis Comments LIPID PANEL, STANDARD Routine 11/17/2021 11:53 AM EDT HM COLONOSCOPY Routine 02/17/2020 from Last 3 Months or Most Recently Relevant to Health Maintenance Results * LIPID PANEL, STANDARD (11/17/2021 11:53 AM EDT) Chol/HDLC Ratio 2.3 <5.0 (calc) [facility] Cholesterol, Total 106 <200 mg/dL [facility] HDL Cholesterol 47 > OR = 40 mg/dL [facility] LDL Cholesterol 45 mg/dL (calc) [facility] Comment: Reference range: <100 ?? Desirable range <100 mg/dL for primary prevention; ?? <70 mg/dL for patients with CHD or diabetic patients ?? with > or = 2 CHD risk factors. ?? LDL-C is now calculated using the Juan ?? calculation, which is a validated novel method providing ?? better accuracy than the Friedewald equation in the ?? estimation of LDL-C. ?? Gregorio REYES et al. ZORA. 2013;310(19): 8527-6976 ?? (http://education.[employer]/faq/UBR829) Non-HDL Cholesterol 59 <130 mg/dL (calc) [facility] Comment: For patients with diabetes plus 1 major ASCVD risk ?? factor, treating to a non-HDL-C goal of <100 mg/dL ?? (LDL-C of <70 mg/dL) is considered a therapeutic ?? option. Triglycerides 63 <150 mg/dL [facility] 11/17/2021 11:5 3 AM EDT us Kelsey Mccormick MD LAB BLOOD ORDERABLES Final Res ult [facility] [address] * Hm Colonoscopy (02/17/2020) Historical Provider HEALTH MAINTENANCE Final Result from Last 3 Months or Most Recently Relevant to Health Maintenance Insurance MEDICARE [facility] STANDARD Care Teams Service Station Manager Relationship Specialty Start Date End Date Kelsey Mccormick MD [address] [place] [address] PCP - General Family Medicine 04/05/20
--- OUTSIDE RECORDS SUMMARY | 2024-03-30 12:03 | XMS_ITS ---
Author Organization [facility] [place] [facility] Address Unknown Encounters Encounter Performer Performer Role Encounter Diagnoses Location Date Discharge - Discharged to home or self care - Home() - [facility] [place] 09/04/2011 05:37 pm EDT - 09/22/2011 01:00 pm EDT Immunizations Vaccine Date Influenza Pneumovax Dose 1 02/25/2011 12:00 am EST TB 1 Step Mantoux (PPD) 09/05/2011 12:00 am EDT TB 2 Step Mantoux Skin Test 09/19/2011 1 2:00 am EDT Social History
== END 2024-03-30 11:30 | disposition home or self-care (01) ==
PROVIDERS: PCP General Practice; Visit Provider Internal Medicine Cardiovascular Disease
DX: I50.20 Unspecified systolic (congestive) heart failure (principal); I48.20 Chronic atrial fibrillation, unspecified; I25.10 Atherosclerotic heart disease of native coronary artery without angina pectoris
CPT/HCPCS: 99214; G2211

== ENCOUNTER → 2024-03-30 10:56 | Outpatient (BNVA) | payer MEDICARE, MEDICAID, SELFPAY | PROVIDERS: PCP General Practice; Visit Provider Internal Medicine Cardiovascular Disease | DX: I50.20 Unspecified systolic (congestive) heart failure (principal); I48.20 Chronic atrial fibrillation, unspecified; I25.10 Atherosclerotic heart disease of native coronary artery without angina pectoris | CPT/HCPCS: 99212 ==

== ENCOUNTER 2024-06-11 14:11 | Outpatient (AMB) | payer MEDICARE, MEDICAID, SELFPAY ==
--- NOTE | 2024-06-11 14:15 | MHC.OFFVIS ---
Vital Signs 06/11/24 14:16 Height 5 ft 10 in Weight 211 lb 10.3 oz BMI 30.4 BP 120/72 Blood Pressure Location Lt brachial Position Sitting Pulse 58 Intake Visit Reasons: 2m follow up Intake Note: 2 month follow-up feeling good Fish Trapper Required: No Allergies No Known Allergies [No Known Allergies*] Allergy (Verified 09/11/23 10:47) Medication List - Last Reconciled 06/11/24 by Ramon Claire MD allopurinol 100 mg PO DAILY apixaban (Eliquis) 5 mg PO BID ascorbate calcium (vitamin C) 1 g PO Q6H atorvastatin 80 mg PO BEDTIME cholecalciferol (vitamin D3) 25 mcg PO DAILY empagliflozin (Jardiance) 10 mg PO DAILY finasteride 5 mg PO DAILY 90 days folic acid 1 mg PO DAILY furosemide 20 mg PO DAILY metoprolol tartrate 50 mg PO BEDTIME metoprolol tartrate 100 mg PO DAILY omeprazole 20 mg PO DAILY sacubitril-valsartan 24-26 mg (Entresto) 1 tab PO BID vitamin B complex (B Complex-Vitamin B12 tablet) 1 tab PO DAILY vitamin E (dl, acetate) 400 units PO DAILY HPI Comments Details: Fadi comes for follow-up. Patient says he feels a lot better since been on Entresto therapy along with Jardiance. He has lost about 15 lb. He said he is much less short of breath and able to move around a lot more. He said he has lost mostly of fluid in the belly. He was no significant change in leg swelling. Weight still fluctuates between 197-203 lb. He denies any clear orthopnea, PND, leg edema. Denies any exertional chest pain. No prolonged palpitation irregular heartbeat. No lightheadedness, syncope. No recent blood work. REPLACED BY [facility] Medical History Heart failure with reduced ejection fraction COVID-19 vaccine series completed Pulmonary hypertension Chronic atrial fibrillation Congestive heart failure CAD (coronary artery disease) Ischemic cardiomyopathy Elevated PSA History of bladder cancer BPH (benign prostatic hyperplasia) Sleep apnea History of posttraumatic stress disorder (PTSD) Elevated cholesterol HTN (hypertension) Myocardial infarction Gout Surgical History Hx of heart artery stent Hx of hernia repair Hx of tonsillectomy Hx of appendectomy History of prostate surgery Hx of cholecystectomy Hx of colonoscopy History of bladder surgery Family History Father Hodgkin lymphoma Mother No problems noted. Sister Melanoma Social History Household Members Other:: sister Are you a primary health care specialist to a significant other at home: No Do you presently have visiting nurse or other home services: No Alcohol intake: current Alcohol intake frequency: a few times a week Patient Tobacco Use Status: Former Tobacco user Tobacco use type: Cigarette Advance Directives Date on File: 09/05/10 Review of Systems Const Denies chills, Denies fatigue, Denies fever(s), Denies frequent falls, Denies weakness, Denies weight gain and Denies weight loss ENT Denies dizziness Card Denies chest pain, Denies leg edema, Denies lightheadedness, Denies palpitations, Denies dyspnea, Denies dyspnea on exertion, Denies orthopnea and Denies other (loss of consciousness) Resp Denies cough, Denies dyspnea and Denies dyspnea on exertion GI Denies hematochezia and Denies change in stool character Musc Denies abnormal gait, Denies muscle weakness, Denies numbness, Denies radiating pain into limb and Denies tingling Neuro Denies abnormal gait, Denies dizziness, Denies frequent falls, Denies numbness, Denies tingling and Denies weakness Endo Denies fatigue and Denies palpitations Physical Exam Vital Signs: Last Vital Signs Pulse 58 06/11/24 14:16 BP 120/72 06/11/24 14:16 BMI result Body Mass Index 30.4 Const General: cooperative, comfortable, no acute distress, alert and awake Nutritional Appearance: obese Orientation/consciousness: patient oriented x3 Limitations: no limitations Neck Neck: Yes trachea midline, Yes supple and Yes no JVD Chest Chest palpation & inspection: normal inspection of the chest Resp Effort & Inspection: normal respiratory effort Auscultation: clear to auscultation bilaterally Cardio Jugular venous distension: no JVD Palpation: normal PMI Rhythm: abnormal rhythm irregularly irregular Heart sounds: S1 normal heart sound present and S2 normal heart sound present GI Auscultation: normal bowel sounds Skin General skin exam: no rashes or lesions noted Neuro General: patient oriented x3 and no focal motor deficits Extrem General: Yes no clubbing, cyanosis or edema Psych Appearance: grossly normal Assessment & Plan Assessment & Plan (1) Heart failure with reduced ejection fraction: Code(s): I50.20 - Unspecified systolic (congestive) heart failure Category: Medical Plan: Heart failure with mid-range EF with LVEF of 40-45% with significantly improved symptoms on current therapy with Entresto as well as Jardiance. Clinically appears much better volume adjusted. Will continue current Jardiance and Lasix therapy. Will increase Entresto to 49-51 mg b.i.d.. Advised to monitor blood pressure at home maintain a log. Encouraged to continue maintain activity level as tolerated. Continue metoprolol therapy. Will obtain blood work today. Follow-up echocardiogram in 6 weeks time. Heart failure management discussed with him. Daily weight monitoring avoidance salt loading was discussed. Additional diuretics as need be. Continue CPAP therapy. (2) Chronic atrial fibrillation: Code(s): I48.20 - Chronic atrial fibrillation, unspecified Category: Medical Plan: Chronic atrial fibrillation, rate controlled. Continue metoprolol therapy. Continue full oral anticoagulation, currently on Eliquis 5 mg b.i.d.. Quarterly renal function test should be pursued. (3) CAD (coronary artery disease): Comment: follows w/[facility] regularly Code(s): I25.10 - Atherosclerotic heart disease of [place] coronary artery without angina pectoris Category: Medical Plan: CAD with prior inferior myocardial infarction. Continue Eliquis therapy and avoid aspirin therapy to reduce bleeding risk. Continue high-intensity statin therapy. Continue aggressive blood pressure control which is currently well optimized. Encouraged to maintain activity level as tolerated. Will follow up in the clinic in 3 months time, sooner p.r.n.. Thank you for allowing me to partake in his care Orders: Orders Basic Metabolic Panel Today I50.9 - Heart failure, unspecified B Type Natriuretic Peptide Today I50.9 - Heart failure, unspecified CA echo transthoracic complete 6 Weeks I50.9 - Heart failure, unspecified Medications: New sacubitril-valsartan 49-51 mg (Entresto) 1 tab PO BID 60 tabs 5RF Discontinued sacubitril-valsartan 24-26 mg (Entresto) Discontinued Reason: Doctor's Order 1 tab PO BID 60 tabs 4RF Coding Level of Care Code Est Pt Level 4 (35473) Complex EM visit Add On G2211 Diagnoses Heart failure with reduced ejection fraction I50.20 Chronic atrial fibrillation I48.20 CAD (coronary artery disease) I25.10
[2024-06-11 14:16] VITALS: BP 120/72; PULSE 58; BMI 30.4
--- OUTSIDE RECORDS SUMMARY | 2024-06-11 17:16 | XMS_ITS | Clinical Summary ---
Author Organization [facility] Address [address] [place] [address] Phone Care Team Providers Care Plant Breeder Name Role Phone Arielle Sandoval NP Primary Care Provider [phone] Medications senna (SENOKOT) 8.6 MG tablet Take [...] Due Date Last Done Comments Pneumococcal Vaccine: 50+ Ye ars (1 of 2 - PCV) 1968 Colorectal Cancer Screening: Annual FOBT 1998 Colorectal Cancer Screening: Colonoscopy 1998 Colorectal Cancer Screening: Sigmoidoscopy 1998 Influenza Vaccine (Season Ended) 2024 Hepatitis B Vaccine Aged Out No longe r eligible based on patient's age to complete this topic Insurance Medicare Medicaid [place] Medicare Medicaid [place] Care Teams Plant Breeder Relationship Specialty Start Date End Date Arielle Sandoval NP PCP - General 03/07/20
--- OUTSIDE RECORDS SUMMARY | 2024-06-11 17:16 | XMS_ITS ---
Author Organization [facility] Care Team Providers Care Sampling Expert Name Role Phone Nabil Tinoco Unavailable Unavailable Allergies and adverse reactions No Known Allergies Care Team Name Role Address Phone Organization Dates Nabil Tinoco Attending Physician [address] [place] [address], [place], [address], [place] (Office): : [facility] 09/04/2011 - 09/22/2011 Immunizations Immunization Status Vaccine Details Vaccine Code CodeSystem Date Notes Influenza cancelled Influenza, high-dose, split virus, trivalent, injectable, preservative free 135 CVX created date: 09/20/2011 consent date: 09/19/2011 Pneumovax Dose 1 completed pneumococcal polysaccharide vaccine, 23 valent 33 CVX created date: 09/20/2011 administere d date: 02/25/2011 TB 1 Step Mantoux (PPD) completed tuberculin skin test; purified protein derivative solution, intradermal lotNumber: [id number] Given Left Forearm 96 CVX created date: 09/05/2011 consent date: 09/05/2011 administere d date: 09/05/2011 TB 2 Step Mantoux Skin Test completed tuberculin skin test; purified protein derivative solution, intradermal lotNumber: [id number] Given Right Forearm Step 1 of Multi-step with next step required 96 CVX created date: 09/20/2011 consent date: 09/19/2011 administere d date: 09/19/2011 Reason for Referral No Reasons for Referral Entered Social History Social History Observation Description Start Date End Date Code Code System Current Smoking Status Tobacco smoking consumption unknown 813476272 SNOMED CT Sex Assigned At Male 1950 62000-2 [facility] Vital Signs Code Code System Vitals Name Values and Units Timing Information 9279-1 [facility] Respiratory Rate Value=18.0 Units=/m in 09/21/2011 8462-4 [facility] Blood Pressure-Diastolic Value=78 Un its=mmHg 09/21/2011 8480-6 [facility] Blood Pressure-Systolic Rrfqi=729 Un its=mmHg 09/21/2011 8310-5 [facility] Body Temperature Value=99.7 Units=?? F 09/21/2011 8867-4 [facility] Heart rate Value=93.0 Units=/min 16177-1 [facility] Weight Fgsxr=759.4 Units=Lbs
== END 2024-06-11 14:36 | disposition home or self-care (01) ==
PROVIDERS: PCP General Practice; Visit Provider Internal Medicine Cardiovascular Disease
DX: I50.20 Unspecified systolic (congestive) heart failure (principal); I48.20 Chronic atrial fibrillation, unspecified; I25.10 Atherosclerotic heart disease of native coronary artery without angina pectoris
CPT/HCPCS: 99214; G2211

== ENCOUNTER 2024-06-11 14:11 | Outpatient (REF) | payer MEDICARE, MEDICAID, SELFPAY ==
[2024-06-11 16:19] LABS: Anion Gap 10 (12-20); Blood Urea Nitrogen 12 mg/dL (9-16); Calcium 9.2 mg/dL (8.4-10.2); Carbon Dioxide 32 mmol/L (22-29); Chloride 105 mmol/L (96-108); Estimated Glomerular Filt Rate > 60; Glucose Random 94 mg/dL (60-115); Potassium 4.5 mmol/L (3.3-5.1); Sodium 142 mmol/L (135-145)
[2024-06-11 16:25] LABS: B Type Natriuretic Peptide 373 pg/mL (<100)
--- OUTSIDE RECORDS SUMMARY | 2024-06-11 17:36 | XMS_ITS | Clinical Summary ---
Author Organization [employer] Address [address] [place] [address] 7[address] [place] [address] Care Team Providers Care Hat Trimmer Name Role Phone Kelsey Mccormick MD Primary Care Provider [phone] Allergies No known active allergies Medications gabapentin [...] mouth in the morning. Buys OTC Active losartan (Cozaar) 50 MG tablet TAKE 1 TABLET BY MOUTH EVERY DAY 90 tablet 4 Active atorvastatin (Lipitor) 80 MG tabletIndications:M ixed hyperlipidemia TAKE 1 TABLET(80 MG) BY MOUTH AT BEDTIME 90 tablet 3 5 Active metoprolol tartrate (Lopressor) 50 MG tabletIndications:E ssential hypertension TAKE 2 TABLETS BY MOUTH EVERY MORNING AND TAKE 1 TABLET EVERY EVENING 270 tablet 3 5 Active Active Problems Problem Noted Date Diagnosed [...] failure 12/07/2014 Coronary artery disease invo lving [place] coronary artery of [place] heart without angina pectoris 12/07/2014 Overview (09/20/2022): Hx of [place] RCA stent Essential hypertension 12/07/2014 Gout 12/07/2014 History of myocardial infarction 12/07/2014 Malignant tumor of urinary bladder 12/07/2014 Obstructive sleep apnea syndrome 12/07/2014 Encounters Date Type Department Care Team Description 06/11/2024 Orders Only GENERIC EXTERNAL DATA DEPARTMENT Provider, Generic External Data 04/28/2024 Refill [facility] [address] [place] [address] Kelsey Mccormick MD Mixed hyperlipidemia; Essential hypertension from Last 3 Months Social History Tobacco [...] Use Screening 1961 Hepatitis C Screening 1967 Tobacco Screening 09/21/2023 09/20/2022 COVID-19 Vaccine ( season) 2023 01/08/2022, 06/26/2021, 02/03/2021, Additional history exists Influenza Vaccine (#1) 2023 , 05/19/2021, 01/15/2020, Additional history exists RSV Patients and Patients Aged 60 years or older (1 - 1-dose 75+ series) 2024 DTaP/Tdap/Td Vaccines (2 - Td or Tdap) [...] Procedure Name Priority Date/Time Associated Diagnosis Comments B TYPE NATRIURETIC PEPTIDE (BNP) Routine 06/11/2024 2:48 PM EDT BASIC METABOLIC PANEL Routine 06/11/2024 2:48 PM EDT LIPID PANEL, STANDARD Routine 11/17/2021 11:53 AM EDT HM COLONOSCOPY Routine 02/17/2020 from Last 3 Months or Most Recently Relevant to Health Maintenance Results * (ABNORMAL) B Type Natriuretic Peptide (BNP) (06/11/2024 2:48 PM EDT) Pathologist [facility] B Type Natriuretic Peptide 373(H) <100 pg/mL [facility] 06/11/2024 2:48 PM EDT 06/11/2024 2:48 PM EDT us Generic External Data Provider LAB BLOOD ORDERAB LES Final Result [facility] [address] [place] [phone] * (ABNORMAL) Basic Metabolic Panel (06/11/2024 2:48 PM EDT) Sodium 142 135 - 145 mmol/L [facility] Potassium 4.5 3.3 - 5.1 mmol/L [facility] Chloride 105 96 - 108 mmol/L [facility] Carbon Dioxide 32(H) 22 - 29 mmol/L [facility] Anion Gap 10(L) 12 - 20 [facility] Urea Nitrogen (BUN) 12 9 - 16 mg/dL [facility] Creatinine, Serum 0.77 0.5 - 1.4 mg/dL [facility] Estimated Glomerular Filt Rate >60 [facility] Comment:Chronic Kidney Disea se: Estimated GFR < 60 mL/min/1.10l3Bosqfx Kidney Disease: Estimated GFR < 15 mL/min/1.73m2 Glucose 94 60 - 115 mg/dL [facility] Calcium 9.2 8.4 - 10.2 mg/dL [facility] 06/11/2024 2:48 PM EDT 06/11/2024 2:48 PM EDT us Generic External Data Provider LAB BLOOD ORDERAB LES Final Result [facility] [address] [place] [phone] * LIPID PANEL, STANDARD (11/17/2021 11:53 AM EDT) Chol/HDLC Ratio 2.3 <5.0 (calc) [facility] Cholesterol, Total 106 <200 mg/dL [facility] HDL Cholesterol 47 > OR = 40 mg/dL [facility] LDL Cholesterol 45 mg/dL (calc) [facility] Comment: Reference range: <100 ?? [...] ?? Gregorio REYES et al. ZORA. 2013;310(19): 6085-4797 ?? (http://education.[employer]CashSentinel/faq/BGB300) Non-HDL Cholesterol 59 <130 mg/dL (calc) [facility] Comment: For patients with diabetes plus 1 major ASCVD risk ?? factor, treating to a non-HDL-C goal of <100 mg/dL ?? (LDL-C of <70 mg/dL) is considered a therapeutic ?? option. Triglycerides 63 <150 mg/dL [facility] 11/17/2021 11:5 3 AM EDT Kelsey Mccormick MD LAB BLOOD ORDERABLES Final Res ult [facility] [address] * Hm Colonoscopy (02/17/2020) Historical Provider HEALTH MAINTENANCE Final Result from Last 3 Months or Most Recently Relevant to Health Maintenance Insurance [place] [id number] [facility] [place] Care Teams Hat Trimmer Relationship Specialty Start Date End Date Kelsey Mccormick MD [address] [place] [phone] PCP - General Family Medicine 04/05/20
--- OUTSIDE RECORDS SUMMARY | 2024-06-11 17:36 | XMS_ITS | Encounter Summary ---
Author Organization [employer] Address [address] [place] [address] 7t [place] [address] Care Team Providers Care Fiberglass Luggage Molder Name Role Phone Kelsey Mccormick MD Primary Care Provider [phone] Encounter Details Date Type Department Care Team (Late st Contact Info) Description 10/25/2022 Abstract [facility] [address] [place] [address] Shani Diaz Social History Tobacco Use Types [...] on filedocumented in this encounter Care Teams Fiberglass Luggage Molder Relationship Specialty Start Date End Date Kelsey Mccormick MD [address] [place] [address] PCP - General Family Medicine 04/05/20 documented as of this encounter
--- OUTSIDE RECORDS SUMMARY | 2024-06-11 17:36 | XMS_ITS | Encounter Summary ---
Author Organization [employer] [facility] Address [address] [place] [address] 7t [place] [address] Care Team Providers Care Food Sales Clerk Name Role Phone Kelsey Mccormick MD Primary Care Provider [phone] Encounter Details Date Type Department Care Team (Late st Contact Info) Description 10/25/2022 Orders Only [facility] [address] [place], [place] [phone] Provider, MD Melisa Social History Tobacco Use [...] on filedocumented in this encounter Care Teams Food Sales Clerk Relationship Specialty Start Date End Date Kelsey Mccormick MD [address] [place] [address] PCP - General Family Medicine 04/05/20 documented as of this encounter
--- OUTSIDE RECORDS SUMMARY | 2024-06-11 17:36 | XMS_ITS ---
Author Organization [facility] [place] Care Team Providers Care Raw Finish Mill Operator Name Role Phone Nabil Tinoco Unavailable Unavailable Allergies and adverse reactions No Known Allergies Care Team Name Role Address Phone Organization Dates Nabil Tinoco Attending Physician [address] [place] [address], [place], [phone], [place] (Office): : [facility] [place] 09/04/2011 - 09/22/2011 Immunizations Immunization Status Vaccine [...] test; purified protein derivative solution, intradermal lotNumber: [id number] Given Left Forearm 96 CVX created date: 09/05/2011 consent date: 09/05/2011 administere d date: 09/05/2011 TB 2 Step Mantoux Skin Test completed tuberculin skin test; purified protein derivative solution, intradermal lotNumber: [id number] Given Right Forearm Step 1 of Multi-step with next step required 96 CVX created date: 09/20/2011 consent date: 09/19/2011 administere d date: 09/19/2011 Reason for Referral No Reasons for Referral Entered Social History Social History Observation Description Start Date End Date Code Code System Current Smoking Status Tobacco smoking consumption unknown 640214993 SNOMED CT Sex Assigned At Male 1950 70985-9 [facility] Vital Signs Code Code System Vitals Name Values and Units Timing Information 9279-1 [facility] Respiratory Rate Value=18.0 Units=/m in 09/21/2011 8462-4 [facility] Blood Pressure-Diastolic Value=78 Un its=mmHg 09/21/2011 8480-6 [facility] Blood Pressure-Systolic Bcjkr=724 Un its=mmHg 09/21/2011 8310-5 [facility] Body Temperature Value=99.7 Units=?? F 09/21/2011 8867-4 [facility] Heart rate Value=93.0 Units=/min 57031-2 [facility] Weight Xrars=072.4 Units=Lbs
--- OUTSIDE RECORDS SUMMARY | 2024-06-11 17:36 | XMS_ITS | Encounter Summary ---
Author Organization [employer] Address [address] [place] [address] 7t [place] [address] Care Team Providers Care Engineering Mgr Name Role Phone Kelsey Mccormick MD Primary Care Provider [phone] Encounter Details Date Type Department Care Team (Late st Contact Info) Description 06/11/2024 Orders Only GENERIC EXTERNAL DATA DEPARTMENT Provider, Generic External Data Social History Tobacco Use Types Packs/Day Years Used Date Smoking Tobacco: Former Cigarettes Q uit: 2007 Smokeless Tobacco: Never Alcohol Use Standard Drinks/Week [...] METABOLIC PANEL Routine 06/11/2024 2:48 PM EDT documented in this encounter Results * (ABNORMAL) B Type Natriuretic Peptide (BNP) (06/11/2024 2:48 PM EDT) B Type Natriuretic Peptide 373(H) <100 pg/mL [facility] 06/11/2024 2:48 PM EDT 06/11/2024 2:48 PM EDT us Generic External Data Provider LAB BLOOD ORDERAB LES Final Result Performing Organization Address [facility] Co de Phone Number [facility] [address] [place] [phone] [phone] * (ABNORMAL) Basic Metabolic Panel (06/11/2024 2:48 PM EDT) Sodium 142 135 - 145 mmol/L [facility] Potassium 4.5 3.3 - 5.1 mmol/L [facility] Chloride 105 96 - 108 mmol/L [facility] Carbon Dioxide 32(H) 22 - 29 mmol/L [facility] Anion Gap 10(L) 12 - 20 [facility] Urea Nitrogen (BUN) 12 9 - 16 mg/dL [facility] Creatinine, Serum 0.77 0.5 - 1.4 mg/dL [facility] Estimated Glomerular Filt Rate >60 [facility] Comment:Chronic Kidney Disea se: Estimated GFR < 60 mL/min/1.81k9Oozrqv Kidney Disease: Estimated GFR < 15 mL/min/1.73m2 Glucose 94 60 - 115 mg/dL [facility] Calcium 9.2 8.4 - 10.2 mg/dL [facility] 06/11/2024 2:48 PM EDT 06/11/2024 2:48 PM EDT us Generic External Data Provider LAB BLOOD ORDERAB LES Final Result Performing Organization Address [facility] Co de Phone Number [facility] [address] [place] [address] [phone] documented in this encounter Visit Diagnoses Not on filedocumented in this encounter Care Teams Engineering Mgr Relationship Specialty Start Date End Date Kelsey Mccormick MD [address] [place] [address] PCP - General Family Medicine 04/05/20 documented as of this encounter
[2024-06-15 20:18] LABS: Prot Elec - Albumin 3.7 g/dL (3.8-4.8); Prot Elec - Alpha1 0.3 g/dL (0.2-0.3); Prot Elec - Alpha2 0.6 g/dL (0.5-0.9); Prot Elec - Beta 1 0.5 g/dL (0.4-0.6); Prot Elec - Beta 2 0.7 g/dL (0.2-0.5); Prot Elec - Gamma 1.2 g/dL (0.8-1.7); Prot Elec - Total Protein 7.1 g/dL (6.1-8.1)
[2024-06-16 07:19] LABS: PEU-Protein Creat Ratio Rand 0.294 (0.025-0.148); PEU-Rand. Prot/Creat Ratio 294 mg/g creat (25-148); PEU-Random Ur. Gamma Globulin 0 %; PEU-Random Urine A1 Globulin 0 %; PEU-Random Urine A2 Globulin 0 %; PEU-Random Urine Albumin 100 %; PEU-Random Urine Beta Globulin 0 %; PEU-Random Urine Creatinine 51 mg/dL (20-320); PEU-Random Urine Protein 15 mg/dL (5-25)
== END 2024-06-11 14:12 | disposition home or self-care (01) ==
LOC: HO.LAB 14:11
PROVIDERS: PCP General Practice; Visit Provider Internal Medicine Cardiovascular Disease
DX: I50.20 Unspecified systolic (congestive) heart failure (principal); I48.20 Chronic atrial fibrillation, unspecified; I25.10 Atherosclerotic heart disease of native coronary artery without angina pectoris
CPT/HCPCS: 80048; 82570; 83880; 84156; 84165; 84166; 99212

== ENCOUNTER → 2024-07-23 10:32 | Outpatient (REF) | payer MEDICARE, MEDICAID, SELFPAY ==
--- NOTE | 2024-07-23 10:35 | CA_ITS ---
Transthoracic Echocardiogram Patient (Last, First, Middle): Fadi Ortega, Gender: Male Date of : 1950 Age: 74 Procedure Date: 07/23/2024 Procedure Type: Transthoracic Echocardiogram Location: OP Height: 177.8 cm Weight: 95.71 kg BSA: 2.14 m2 Heart Rate: bpm BP: 120 / 72 mmHg Fire Support Man: MINDI Referring MD: Ramon Claire MD Log Stacker Operator: Ramon Claire MD Symptoms: I50.9 - Heart failure, unspecified Study Quality: Technically Difficult/contrast ECG Rhythm: Atrial Fibrillation Conclusions: - 1. Szbm-cu-gvdictcg LV systolic dysfunction with LVEF of 40-45% 2. Severe biatrial enlargement 3. Enlarged RV with preserved contractility 4. Mild mitral and tricuspid regurgitation 5. Moderate to severe elevation right ventricular systolic pressure with significantly elevated right atrial pressures 6. Trivial pericardial effusion Findings Procedure Information Contrast agent, definity, is being given per protocol without apparent complications. Left Ventricle Normal left ventricular cavity size. There is normal left ventricular wall thickness. The left ventricular systolic function is mild to moderately decreased. The visually estimated ejection fraction is between 40-45%. Diastolic function is indeterminate on the basis of available data. Wall Motion Rest Echo Findings The apical inferior, apical septum, and mid anteroseptal segments are hypokinetic. The inferoseptal wall, the basal inferior, and mid inferior segments are akinetic. All other scored wall segments showed normal motion. Right Ventricle Moderately increased right ventricular cavity size. There is normal right ventricular systolic function. Atria Severe biatrial enlargement. There is no evidence of interatrial shunt. Aortic Valve There is mild calcification of the aortic valve. There is no aortic valve stenosis. There is no aortic valve regurgitation. Mitral Valve There is mild anterior and posterior mitral leaflet thickening. There is mild mitral annular calcification. There is mild mitral valve regurgitation. There is no mitral valve stenosis. Pulmonic Valve The pulmonic valve is likely normal. There is trace to mild pulmonic valve regurgitation. Tricuspid Valve Normal tricuspid valve structure. There is mild tricuspid valve regurgitation. Significantly elevated right atrial pressure. Moderate to severe pulmonary hypertension is present. Great Vessels The pulmonary artery was not well visualized. There is mild dilatation of the ascending aorta measuring 3.80 cm. Small plaque is seen in the sino tubular ridge. Venous The inferior vena cava is severely dilated and collapses less than 50% with inspiration. Pericardium/Pleural There is a trivial pericardial effusion. There is a left sided pleural effusion. Prior Study Comparison Changes noted compared to prior study dated: 07/24/2023. RV systolic pressure is further elevated Measurements 2D Linear Measurements IVSd: 0.98 0.6-0.9/0.6-1.0 cm LVIDd: 4.85 3.9-5.3/4.2-5.9 cm LVIDd Index: 2.27 2.4-3.2/2.2-3.1 cm/m2 LVIDs: 3.40 2.0-3.6 cm LVPWd: 0.93 0.7-1.1 cm LA Diam: 5.00 2.7-3.8/3.0-4.0 cm LAIDs Index: 2.34 1.5-2.3 cm/m2 LV Mass: 202.20 67-162/88-224 g LV Mass Index: 94.48 43-95/49-115 g/m2 LVOT Diam: 2.10 3.0+(-)1.3 cm Mitral Valve MV Pk E: 0.98 MV Decel Time: 209.00 E'Lateral: 9.36 E'Medial: 8.07 E/E' Med: 12.10 E/E' Lat: 10.40 PHT: 61.00 MVA PHT: 3.61 Decel [place]: 4.68 Aortic Valve AoV Pk Angel: 1.01 AoV Pk Grad: 4.00 LVOT LVOT Pk Angel: 0.78 LVOT Pk Grad: 2.00 LVOT Diam: 2.10 LVOT Area: 3.46 Diastolic Function MV Pk E: 0.98 E'Medial: 8.07 E/E' Med: 12.10 E' Laterial: 9.36 E/E' Lat: 10.40 Right Ventricle TAPSE (mm): 25.90 TVS' Angel: 9.14 Tricuspid Valve TR Pk Angel: 3.41 TR Pk Grad: 47.00 RA Press: 15.00 RVSP: 62.00 Great Vessels Aorta Sinus of Valsalva: 3.51 2.0-3.[address] Ridge: 2.60 1.7-3.4 cm Ao Asc: 3.80 2.1-3.4 cm Updated in Other Vendor System with Status of Final Ramon Claire MD electronically signed on 07/24/2024 8:34:19 AM with status of Final
--- OUTSIDE RECORDS SUMMARY | 2024-07-23 10:58 | XMS_ITS | Encounter Summary ---
Author Organization [employer] Address [address] [place] [address] 7 [place] [address] Care Team Providers Care Manager Inspection Name Role Phone Kelsey Mccormick MD Primary Care Provider [phone] Encounter Details Date Type Department Care Team (Late Contact Info) Description 10/25/2022 Abstract [facility] [address] [place] [address] Shani Diaz Social History Tobacco Use Types [...] as of this encounter Plan of Treatment Upcoming Encounters Date Type Department Care Team (Late Contact Info) Description 08/03/2024 2:45 PM EDT Office Visit [facility] [address] [place] [address] Kelsey Mccormick MD [address] [place] [address] documented as of this encounter Visit Diagnoses Not on filedocumented in this encounter Care Teams Manager Inspection Relationship Specialty Start Date End Date Kelsey Mccormick MD [address] [place] [phone] PCP - General Family Medicine 04/05/20 documented as of this encounter
== END ==
LOC: HO.CARD 10:32
PROVIDERS: PCP General Practice; Visit Provider Internal Medicine Cardiovascular Disease
DX: I50.9 Heart failure, unspecified (principal)
CPT/HCPCS: 93306; Q9957

== ENCOUNTER → 2024-07-23 10:35 | Outpatient (BNV) | payer MEDICARE, MEDICAID, SELFPAY | PROVIDERS: PCP General Practice; Visit Provider Internal Medicine Cardiovascular Disease | DX: I50.40 Unspecified combined systolic (congestive) and diastolic (congestive) heart failure (principal); I51.7 Cardiomegaly; I34.0 Nonrheumatic mitral (valve) insufficiency; I37.1 Nonrheumatic pulmonary valve insufficiency | CPT/HCPCS: 93306 ==

== ENCOUNTER 2024-09-24 14:59 | Outpatient (REF) | payer MEDICARE, MEDICAID, SELFPAY ==
[2024-09-24 16:45] LABS: Anion Gap 13 (12-20); Blood Urea Nitrogen 13 mg/dL (9-16); Calcium 9.1 mg/dL (8.4-10.2); Carbon Dioxide 33 mmol/L (22-29); Chloride 102 mmol/L (96-108); Estimated Glomerular Filt Rate > 60; Potassium 4.0 mmol/L (3.3-5.1); Sodium 144 mmol/L (135-145)
== END 2024-09-24 15:00 | disposition home or self-care (01) ==
LOC: HO.LAB 14:59
PROVIDERS: PCP General Practice; Visit Provider Internal Medicine Cardiovascular Disease
DX: I50.20 Unspecified systolic (congestive) heart failure (principal); I25.10 Atherosclerotic heart disease of native coronary artery without angina pectoris; I48.20 Chronic atrial fibrillation, unspecified; Z79.01 Long term (current) use of anticoagulants; Z79.899 Other long term (current) drug therapy
CPT/HCPCS: 36415; 80048; 93005; 99212

== ENCOUNTER 2024-09-24 14:59 | Outpatient (AMB) | payer MEDICARE, MEDICAID, SELFPAY ==
--- NOTE | 2024-09-24 15:02 | A.OFFVIS_ITS ---
Vital Signs 09/24/24 15:03 Height 5 ft 10 in Weight 205 lb 0.478 oz BMI 29.4 BP 120/70 Blood Pressure Location Lt brachial Position Sitting Pulse 54 Intake Visit Reasons: 3m follow up Intake Note: 3 month follow-up with ekg Shipyard Painting Supervisor Required: No Allergies No Known Allergies (No Known Allergies*) Allergy (Verified 09/11/23 10:47) HPI Comments Details: Fadi comes for follow-up. He said he is feels extremely well right now. He has not had any worsening heart failure symptoms. Since been started on Jardiance and Entresto he says his heart failure symptoms have significantly improved. He has lost a lot of fat as well as fluid. Denies any orthopnea, PND, leg edema. No lightheadedness, syncope. No prolonged palpitation irregular heartbeat. No bleeding issues or neurologic events. [facility] Medical History Heart failure with reduced ejection fraction COVID-19 vaccine series completed Pulmonary hypertension Chronic atrial fibrillation Congestive heart failure CAD (coronary artery disease) Ischemic cardiomyopathy Elevated PSA History of bladder cancer BPH (benign prostatic hyperplasia) Sleep apnea History of posttraumatic stress disorder (PTSD) Elevated cholesterol HTN (hypertension) Myocardial infarction Gout Surgical History Hx of heart artery stent Hx of hernia repair Hx of tonsillectomy Hx of appendectomy History of prostate surgery Hx of cholecystectomy Hx of colonoscopy History of bladder surgery Family History Father Hodgkin lymphoma Mother No problems noted. Sister Melanoma Social History Household Members Other:: sister Are you a primary daycare director to a significant other at home: No Do you presently have visiting nurse or other home services: No Alcohol intake: current Alcohol intake frequency: a few times a week Patient Tobacco Use Status: Former Tobacco user Tobacco use type: Cigarette Advance Directives Date on File: 09/05/10 Review of Systems Const Denies chills, Denies fatigue, Denies fever(s), Denies frequent falls, Denies weakness, Denies weight gain and Denies weight loss ENT Denies dizziness Card Denies chest pain, Denies leg edema, Denies lightheadedness, Denies palpitations, Denies dyspnea, Denies dyspnea on exertion, Denies orthopnea and Denies other (loss of consciousness) Resp Denies cough, Denies dyspnea and Denies dyspnea on exertion GI Denies hematochezia and Denies change in stool character Musc Denies abnormal gait, Denies muscle weakness, Denies numbness, Denies radiating pain into limb and Denies tingling Neuro Denies abnormal gait, Denies dizziness, Denies frequent falls, Denies numbness, Denies tingling and Denies weakness Endo Denies fatigue and Denies palpitations Physical Exam Vital Signs: Last Vital Signs Pulse 54 09/24/24 15:03 BP 120/70 09/24/24 15:03 BMI result Body Mass Index 29.4 Const General: cooperative, comfortable, no acute distress, alert and awake Nutritional Appearance: obese Orientation/consciousness: patient oriented x3 Limitations: no limitations Neck Neck: Yes trachea midline, Yes supple and Yes no JVD Chest Chest palpation & inspection: normal inspection of the chest Resp Effort & Inspection: normal respiratory effort Auscultation: clear to auscultation bilaterally Cardio Jugular venous distension: no JVD Palpation: normal PMI Rhythm: abnormal rhythm irregularly irregular Heart sounds: S1 normal heart sound present and S2 normal heart sound present GI Auscultation: normal bowel sounds Skin General skin exam: no rashes or lesions noted Neuro General: patient oriented x3 and no focal motor deficits Extrem General: Yes no clubbing, cyanosis or edema Psych Appearance: grossly normal Office Procedures EKG Details: EKG shows atrial fibrillation with slow ventricular response with nonspecific STT wave changes 53420-Hhgpfozaxksnalusq, Complete Assessment & Plan Assessment & Plan (1) Heart failure with reduced ejection fraction: Code(s): I50.20 - Unspecified systolic (congestive) heart failure Category: Medical Plan: Heart failure with reduced ejection fraction with [id number]-di-[id number] LV systolic dysfunction will further worsening of RV systolic pressure although his heart failure overall symptoms have significantly improved. He is currently doing well and clinically appears to be euvolemic and well compensated. Continue current neurohormonal modulation with Jardiance, metoprolol as well as Entresto therapy. Continue current diuretic regimen. Daily weight monitoring avoidance salt loading was discussed additional diuretics as need be. He understands management well. Continue CPAP therapy. Continue maintain activity level as tolerated. (2) CAD (coronary artery disease): Comment: follows w/[facility] regularly Code(s): I25.10 - Atherosclerotic heart disease of [place] coronary artery without angina pectoris Category: Medical Plan: CAD with prior inferior myocardial infarction RCA stenting. Currently having no symptoms. Continue full oral anticoagulation on Eliquis and avoid aspirin therapy to reduce bleeding risk. Blood pressure is currently well optimized. Should be on statin therapy and target goal LDL less than 70 mg/dL. (3) Chronic atrial fibrillation: Code(s): I48.20 - Chronic atrial fibrillation, unspecified Category: Medical Plan: Chronic atrial fibrillation has failed rhythm control approach will continue pursue rate control approach. Continue current therapy with metoprolol for rate control. Continue full oral anticoagulation, currently on Eliquis 5 mg b.i.d.. Semi annual renal function test should be pursued. Will follow up in the clinic in 6 months time, sooner p.r.n.. Thank you for allowing me to partake in his care Orders: Orders Basic Metabolic Panel Today I50.20 - Unspecified systolic (congestive) heart failure Coding Level of Care Code Est Pt Level 4 (28242) Complex EM visit Add On G2211 Diagnoses Heart failure with reduced ejection fraction I50.20 CAD (coronary artery disease) I25.10 Chronic atrial fibrillation I48.20 CPT Codes EKG - CPT: 94394-Pjhnppuxpsbydvrca, Complete ([id number])
[2024-09-24 15:03] VITALS: BP 120/70; PULSE 54; BMI 29.4
--- OUTSIDE RECORDS SUMMARY | 2024-09-24 15:04 | XMS_ITS | Clinical Summary ---
Author Organization [facility] Address [address] [place] [address] Phone Care Team Providers Care Script Reader Name Role Phone Arielle Sandoval NP Primary Care Provider [phone] Medications senna (SENOKOT) 8.6 MG tablet Take [...] Cancer Screening: Sigmoidoscopy 1998 Influenza Vaccine (#1) 2024 Hepatitis B Vaccine Aged Out No longe r eligible based on patient's age to complete this topic Insurance Medicare Medicaid [place] Medicare [place] Care Teams Script Reader Relationship Specialty Start Date End Date Arielle Sandoval NP PCP - General 03/07/20
--- OUTSIDE RECORDS SUMMARY | 2024-09-24 15:04 | XMS_ITS | Encounter Summary ---
Author Organization [employer] Address [address] [place] [address] [address] [place] [address] Care Team Providers Care Coremaker Experimental Name Role Phone Kelsey Mccormick MD Primary Care Provider [phone] Encounter Details Date Type Department Care Team (Late st Contact Info) Description 10/25/2022 Abstract [facility] [address] [place] [address] Shani Diaz Social History Tobacco Use Types [...] on filedocumented in this encounter Care Teams Coremaker Experimental Relationship Specialty Start Date End Date Kelsey Mccormick MD [address] [place] [address] PCP - General Family Medicine 04/05/20 documented as of this encounter
--- OUTSIDE RECORDS SUMMARY | 2024-09-24 15:04 | XMS_ITS | Clinical Summary ---
Author Organization [facility] Address [address] [address] Phone Care Team Providers Care Webbing Seamer Pound Net Name Role Phone Unavailable Primary Care Provider Unavailabl e Social History Tobacco Use Types Packs/Day Years Used Date Smoking Tobacco: Never Assessed Education Answer Date Recorded Are you interested in more education? Not on alissa e 06/22/2022 Are you concerned about learning? Not on file 06/22/2022 No 06/22/2022 No 06/22/2022 Digital Access Answer Date Recorded No 07/21/2022 No 07/21/2022 No 07/21/2022 Reliable internet access at home? Not on file 07/21/2022 Device with a working camera? Not on file Sex and Gender Information Value Date Recorded Sex Assigned at Not on file Legal Sex Male 10:37 PM EDT Gender Identity Not on file Sexual Orientation Not on file Plan of Treatment Health Maintenance Due Date Last Done Comments Adult Td,Tdap Booster 1949 LIPID PANEL 1949 DEPRESSION SCREENING 1961 SMOKING Hx and SMOKELESS TOBACCO SCREENING 1962 HEPATITIS C SCREENING 1967 COLOGUARD 1994 COLONOSCOPY 1994 COLORECTAL CANCER SCREENING 1994 FIT TEST 1994 FOBT 1994 SIGMOIDOSCOPY 1994 VIRTUAL COLONOSCOPY 1994 PNEUMOCOCCAL VACCINES (50+ years) (1 of 1 - PCV) 1999 COVID-19 VACCINE (2 - 2023-2 5 season) 2023 04/26/2020 RSV VACCINE (1 - 1-dose 75+ series) 2024 ZOSTER VACCINES Completed 01/15/2020, 11/18/2019 HEPATITIS A VACCINES Aged Out No long er eligible based on patient's age to complete this topic HIB VACCINES Aged Out No longer eligi ble based on patient's age to complete this topic MENINGOCOCCAL VACCINES (ACWY) Aged Out No longer eligible based on patient's age to complete this topic MENINGOCOCCAL VACCINES (B) Aged Out N o longer eligible based on patient's age to complete this topic Medical Devices Not on file Additional Source Comments The information contained in this document represents components of the legal health record. It is not the complete legal health record.[facility]
== END 2024-09-24 15:31 | disposition home or self-care (01) ==
LOC: HO.HCS 15:00
PROVIDERS: PCP General Practice; Visit Provider Internal Medicine Cardiovascular Disease
DX: I50.20 Unspecified systolic (congestive) heart failure (principal); I25.10 Atherosclerotic heart disease of native coronary artery without angina pectoris; I48.20 Chronic atrial fibrillation, unspecified
CPT/HCPCS: 93010; 99214; G2211

== ENCOUNTER 2024-11-03 10:54 | Outpatient (AMB) | payer MEDICARE, MEDICAID, SELFPAY ==
--- NOTE | 2024-11-03 11:02 | A.OFFVIS_ITS ---
Intake Visit Reasons: cysto Intake Note: Patient is Present for Cystoscopy Urology Med: Finasteride, vit c Blood Thinner: Eliquis Newspaper Distributor Supervisor Required: No Accompanied by: Self / Same As Patient Allergies No Known Allergies (No Known Allergies*) Allergy (Verified 11/03/24 11:03) HPI Comments Details: Fadi is a pleasant male. He is a patient of Dr. Russ. He is seen for the following urologic condition - bladder cancer - lower urinary tract symptoms Here for check cystoscopy - bladder with BCG change but otherwise stable Open bladder neck PSA review - 05/17 2.2 stable Continue finasteride Bladder surveillance yearly Bladder cancer initial diagnosis 2012 superficial low-grade treatment TURBT with BCG initiation superficial low-grade recurrent initial TURBT 2012 intervention - multiple previous TURBT procedures - BCG 6 week course x3 last in 2015 currently undergoing surveillance protocol cystoscopy - 08/15 NAD, 03/17 NAD, 11/16 NAD cytology - 08/15 NAD, 11/17 NAD, 11/18 NAD continue with surveillance Lower urinary tract symptoms Weakness of stream Tolerable symptoms Addition of finasteride for elevated PSA and recurrent tissue TURP 2007, 2016 PSA 02/13 5.4, 08/15 4.4, 12/15 5.8 9%, 07/16 2.8, 05/17 2.2 continue to follow PSA PFSH Medical History Heart failure with reduced ejection fraction COVID-19 vaccine series completed Pulmonary hypertension Chronic atrial fibrillation Congestive heart failure CAD (coronary artery disease) Ischemic cardiomyopathy Elevated PSA History of bladder cancer BPH (benign prostatic hyperplasia) Sleep apnea History of posttraumatic stress disorder (PTSD) Elevated cholesterol HTN (hypertension) Myocardial infarction Gout Surgical History Hx of heart artery stent Hx of hernia repair Hx of tonsillectomy Hx of appendectomy History of prostate surgery Hx of cholecystectomy Hx of colonoscopy History of bladder surgery Family History Father Hodgkin lymphoma Mother No problems noted. Sister Melanoma Social History Household Members Other:: sister Are you a primary healthcare interpreter to a significant other at home: No Do you presently have visiting nurse or other home services: No Alcohol intake: current Alcohol intake frequency: a few times a week Patient Tobacco Use Status: Former Tobacco user Tobacco use type: Cigarette Advance Directives Date on File: 09/05/10 Review of Systems Const Denies chills and Denies fever(s) Card Reports no additional complaints and Denies syncope Resp Denies cough GI Denies abdominal pain and Denies heartburn Reports as per HPI and Denies change in libido Neuro Denies syncope Psych Denies change in libido Endo Denies change in libido Physical Exam Const General: cooperative, healthy appearing, comfortable and no acute distress Orientation/consciousness: patient oriented x3 HEENT Face and sinus: Yes normal facial exam Mouth: moist mucous membranes Neck Neck: Yes normal visual inspection, Yes full ROM and Yes trachea midline Chest Chest palpation & inspection: normal inspection of the chest Resp Effort & Inspection: normal respiratory effort, able to speak in complete sentences and no respiratory distress GI Inspection: Yes normal to inspection Back/Spine/Pelvis Cervical Spine: normal cervical lordosis Thoracic/Lumbar Spine: thoracic and lumbar spine normal to inspection Skin General skin exam: no rashes or lesions noted Neuro General: patient oriented x3, gait normal, tone normal and moves all extremities Extrem General: Yes normal to inspection and Yes capillary refill normal Office Procedures Cystoscopy Consent Discussed risk and benefit or proposed procedure with the patient. Information consent for procedure given to the patient. Discussed technical aspects, risks, benefits and alternatives in full. Addressed all of the patient's questions and concerns regarding the procedure. The patient demonstrated knowledge and understanding. They wish to proceed with this procedure. Preparation The patient was prepped in the usual manner. A forest technology professor was present and in the room. Genitalia was prepped with betadine solution in a sterile manner. Lidocaine Jelly 2% was placed into the urethra and 16Fr flexible Olympus cystoscope was inserted into the meatus after adequate lubrication. Procedure Cystoscopy performed using a disposable Urovue digital 16 Salvadorean cystoscope. Meatus circumcised Urethra anterior and posterior urethra normal Prostatic Urethra unremarkable Bladder examination with retroflexion of cystoscope Bladder Orifices normal shape and position Bladder Capacity Normal Trabeculations Grade 0 Cellule Formation None Diverticulum Formation None Mucosal Erythema None Bladder Tumor None 10914-[id number] DISPOSABLE SCOPE URO-G FLEXIBLE SCOPE Procedure code (CPT) selection complete Office Meds lidocaine HCl 2 % mucosal jelly in applicator Performing Provider: Dequan Villegas MD Performing Location: [facility] Administered by: Vandana Fletcher RN on 11/03/24 11:25 Dose Route Admin Location Dispensed Lot Number Expiration Date ND Creative Perfumer 10 mL intra-urethral 10 mL nitrofurantoin monohydrate/macrocrystals 100 mg capsule Performing Provider: Dequan Villegas MD Performing Location: [facility] Administered by: Vandana Fletcher RN on 11/03/24 11:25 Dose Route Admin Location Dispensed Lot Number Expiration Date NDC Creative Perfumer 100 mg PO 1 cap Results AMB Urinalysis, Automated UA Leukoctes 0 Bayron/uL Last Edit by MASON Morelos on 11/03/24 11:21 UA Nitrite Negative Last Edit by MASON Morelos on 11/03/24 11:21 UA Urobilinogen 3.5 mg/dL Last Edit by MASON Morelos on 11/03/24 11:2 1 UA Protein 0 mg/dL Last Edit by MASON Morelos on 11/03/24 11:21 UA pH 6.0 Last Edit by MASON Morelos on 11/03/24 11:21 UA Blood 0 Geovany/uL Last Edit by MASON Morelos on 11/03/24 11:21 UA Specific Coleridge 1.010 Last Edit by MASON Morelos on 11/03/24 11: 21 UA Ketone Negative Last Edit by MASON Morelos on 11/03/24 11:21 UA Bilirubin 0 mg/dL Last Edit by MASON Morelos on 11/03/24 11:21 UA Glucose 60 mg/dL Last Edit by MASON Morelos on 11/03/24 11:21 Results Reviewed Results Reviewed: Laboratory Last Values Urine pH (Auto) 6.0 11/03/24 11:19 Specific Coleridge (Auto) 1.010 11/03/24 11:19 Urine Protein (Auto) 0 mg/dL 11/03/24 11:19 Glucose (UA)(Auto) 60 mg/dL 11/03/24 11:19 Urine Ketones (Auto) Negative 11/03/24 11:19 Urine Blood (Auto) 0 Geovany/uL 11/03/24 11:19 Urine Nitrite (Auto) Negative 11/03/24 11:19 Urine Bilirubin (Auto) 0 mg/dL 11/03/24 11:19 Urine Urobilinogen (Auto) 3.5 mg/dL 11/03/24 11:19 Leukocyte Esterase (Auto) 0 Bayron/uL 11/03/24 11:19 Assessment & Plan Assessment & Plan (1) Bladder cancer: Comment: Recurrent superficial 2013 Code(s): C67.9 - Malignant neoplasm of bladder, unspecified Category: Medical (2) BPH (benign prostatic hyperplasia): Code(s): N40.0 - Benign prostatic hyperplasia without lower urinary tract symptoms Category: Medical Plan One year follow-up Orders: Orders AMB Urinalysis Automated 11/03/24 Z13.9 - Encounter for screening, unspecified AMB Cystoscopy 11/03/24 C67.9 - Malignant neoplasm of bladder, unspecified Patient Instructions: This note is constructed using voice recognition software. While every effort has been made to ensure accuracy surgical technologist errors may have been included. Imaging studies, laboratory and physical exam results were discussed and reviewed in detail. No major barriers to patient understanding were identified. An opportunity to ask questions regarding the treatment plan was provided. All questions were answered. The patient expressed understanding and agreement with the above treatment plan. The patient is aware they should contact our office by phone for worsening of their current condition or the appearance of new urologic symptoms. Compliance is encouraged with any medications and followup testing that is ordered. It is a privilege to participate in the urologic care of your patient. If you have any questions or concerns regarding treatment for the above conditions, or other urologic issues, please do not hesitate to contact me. The office telephon e contact is [phone]. Sincerely, Dr Dequan Villegas MD, [facility] - Urology Compassionate Specialist Care for the Genitourinary System Coding Level of Care Code Est Pt Level 4 (46906) Diagnoses Bladder cancer C67.9 BPH (benign prostatic hyperplasia) N40.0 CPT Codes Cystoscopy - CPT: 11145-[id number] ([id number])
--- OUTSIDE RECORDS SUMMARY | 2024-11-03 13:09 | XMS_ITS | Clinical Summary ---
Author Organization [facility] Address [address] [address] Phone Care Team Providers Care Computing Consultant Name Role Phone Unavailable Primary Care Provider [...] years) (1 of 1 - PCV) 1999 RSV VACCINE (1 - 1-dose 75+ series) 2024 INFLUENZA VACCINE (#1) 2024 , 11/10/2018, 12/06/2016 COVID-19 VACCINE (2 - 2024-2 6 season) 2024 04/26/2020 ZOSTER VACCINES Completed 01/15/2020, 11/18/2019 HEPATITIS A [...] It is not the complete legal health record.[facility]
--- OUTSIDE RECORDS SUMMARY | 2024-11-03 13:09 | XMS_ITS | Clinical Summary ---
Author Organization [employer] Address [address] [facility] [address] [place] [address] Care Team Providers Care Ammonia Worker Name Role Phone Kelsey Mccormick MD Primary Care Provider [phone] Allergies No known active allergies Medications allopurinol (Zyloprim) 100 MG tablet 3 Active Eliquis 5 MG tablet Take 5 mg by mouth 2 times daily. 3 Active finasteride (Proscar) 5 MG tablet Take 5 mg by mouth in the morning. 3 Active furosemide (Lasix) 20 MG tablet Take 20 mg by mouth in the morning. 3 Active calcium carbonate 1500 (600 Ca) MG tablet Take 1 tablet by mouth. 2 Active ascorbic acid (Vitamin C) 1000 MG [...] EVERY EVENING 270 tablet 3 5 Active Jardiance 10 MG 5 Active Entresto 49-51 MG tablet 5 Active furosemide (Lasix) 40 MG tablet Take 1 tablet by mouth Once per day. 5 Active cholecalciferol (Vitamin D-3) 25 MCG (1000 UT) capsule Take 1 capsule (25 mcg) by mouth Once per day. 90 capsule 3 Active Active Problems Problem Noted Date Diagnosed [...] failure 12/07/2014 Coronary artery disease invo lving coquille coronary artery of coquille heart without angina pectoris 12/07/2014 Overview (09/20/2022): Hx of [place] RCA stent Essential hypertension 12/07/2014 Gout 12/07/2014 History of myocardial infarction 12/07/2014 Malignant tumor of urinary bladder 12/07/2014 Obstructive sleep apnea syndrome 12/07/2014 Encounters Date Type Department Care Team Description 09/24/2024 Orders Only GENERIC EXTERNAL DATA DEPARTMENT Provider, Generic External Data 08/03/2024 2:45 PM EDT Office Visit [facility] [address] [place] [id number] Kelsey Mccormick MD Other polyneuropathy (Primary Dx); Malignant neoplasm of urinary bladder, unspecified site (CMS/HCC); Chronic congestive heart failure, unspecified heart failure type (CMS/HCC); Longstanding persistent atrial fibrillation (CMS/HCC); Dietary counseling; Exercise counseling; Overweight 08/03/2024 Travel from Last 3 Months Immunizations Immunization Administration Dates Next Due Influenza High-dose Quadriva lent Preservative Free 11/17/2021,05/19/2021,01/15/2020 Influenza injectable quadriv alent IIV4 with preservative 01/11/2016,12/07/2014 Influenza injectable quadriv alent preservative free 01/10/2013 Influenza, High Dose Seasona l, Preservative Free 11/10/2018,11/22/2017,12/06/2016 Influenza, IIV3, injectable 01/10/2013 Influenza, Split (incl. fela fied surface antigen) 10/31/2011 Influenza, trivalent, adjuvanted 12/06/2016 PPD Test 09/19/2011,09/05/2011 Pneumococcal Conjugate PCV 13 12/07/2014 Pneumococcal Polysaccharide PPSV23 01/11/2016,,05/31/2006 Tdap 12/07/2014 Zoster, Recombinant 01/15/2020,11/18/2019 Zoster, live 12/07/2014 Social History Tobacco Use Types Packs/Day Years Used Date Smoking Tobacco: Former Cigarettes Q uit: 2007 Smokeless Tobacco: Never Tobacco Cessation:Counseling Given: Not Answered Alcohol Use Standard Drinks/Week Comments Yes 2 (1 standard drink = 0.6 oz pur e alcohol) Twice weekly or holiday Depression Answer Date Recorded Patient Health Questionnaire-9 Score 2 08/05/2024 Patient Health Questionnaire-9 Score 2 08/05/2024 Last PHQ-9: Questionnaire Data Not on file 0 08/05/2024 Depression Answer Date Recorded Patient Health Questionnaire-2 Score 0 08/05/2024 Sex and Gender Information Value Date Recorded Sex Assigned at Male 12/25/2021 10:19 AM EDT Legal Sex Male 10:19 AM EDT Gender Identity Male 12/25/2021 10:19 AM EDT Sexual Orientation Straight 12/25/2021 10 :19 AM EDT Last Filed Vital Signs Vital Sign Reading Time Taken Comments Blood Pressure 130/70 08/03/2024 2:57 PM EDT Pulse 84 08/03/2024 2:57 PM EDT Temperature 36.8 C (98.2 F) 08/03/2024 2:57 PM EDT Respiratory Rate 18 08/03/2024 2:57 PM EDT Oxygen Saturation 96% 09/20/2022 10: 51 AM EDT Inhaled Oxygen Concentration - - Weight 92.5 kg (203 lb 14.4 oz) 08/03/2024 2:57 PM EDT Height 177.8 cm (5' 10 ) 08/03/2024 2:57 PM EDT Body Mass Index 29.26 08/03/2024 2:57 PM EDT Plan of Treatment Health Maintenance Due Date Last Done Comments CT Colonography 1949 FIT DNA/Cologuard 1949 FIT 1949 FOBT 1949 SDOH Screening 1950 Sigmoidoscopy 1949 Alcohol/Substance Use Screening 1961 Hepatitis C Screening 1967 RSV Patients and Patients Aged 60 years or older (1 - 1-dose 75+ series) 2024 COVID-19 Vaccine ( season) 2024 01/08/2022, 06/26/2021, 02/03/2021, Additional history exists Influenza Vaccine (#1) 2024 , 05/19/2021, 01/15/2020, Additional history exists DTaP/Tdap/Td Vaccines (2 - Td or Tdap) 12/07/2024 12/07/2014 Colonoscopy 02/16/2025 02/17/2020 Colorectal Cancer Screening 02/16/2025 Tobacco Screening 08/03/2025 08/03/2024 Depression Screening 08/05/2025 08/05/2024, 08/06/19 25 Lipid Panel 11/17/2026 11/17/2021, 08/19/2020 Pneumococcal Vaccine: 50+ Years Completed 01/11/2016, 12/07/2014, 02/25/2011, Additional history exists Zoster Vaccines Completed 01/15/2020, 10/27, 12/07/2014 HIB [...] patient's age to complete this topic Meningococcal B Vaccine Aged Out No l onger eligible based on patient's age to complete [...] Procedure Name Priority Date/Time Associated Diagnosis Comments BASIC METABOLIC PANEL Routine 09/24/2024 3:45 PM EDT LIPID PANEL, STANDARD Routine 11/17/2021 11:53 AM EDT HM COLONOSCOPY Routine 02/17/2020 from Last 3 Months or Most Recently Relevant to Health Maintenance Results * (ABNORMAL) Basic Metabolic Panel (09/24/2024 3:45 PM EDT) [facility] Sodium 144 135 - 145 mmol/L [facility] Potassium 4.0 3.3 - 5.1 mmol/L [facility] Chloride 102 96 - 108 mmol/L [facility] Carbon Dioxide 33(H) 22 - 29 mmol/L [facility] Anion Gap 13 12 - 20 [facility] Urea Nitrogen (BUN) 13 9 - 16 mg/dL [facility] Creatinine, Serum 0.94 0.5 - 1.4 mg/dL [facility] Estimated Glomerular Filt Rate >60 [facility] Comment:Chronic Kidney Disea se: Estimated GFR < 60 mL/min/[id number] Kidney Disease: Estimated GFR < 15 mL/min/1.73m2 Glucose 108 60 - 115 mg/dL [facility] Calcium 9.1 8.4 - 10.2 mg/dL [facility] 09/24/2024 3:45 PM EDT 09/24/2024 3:45 PM EDT us Generic External Data Provider LAB BLOOD ORDERAB LES Final Result [facility] [address] [place] [address] [phone] * LIPID PANEL, STANDARD (11/17/2021 11:53 AM EDT) Pathologist [facility] Chol/HDLC Ratio 2.3 <5.0 (calc) [facility] Cholesterol, Total 106 <200 mg/dL [facility] HDL Cholesterol 47 > OR = 40 mg/dL [facility] LDL Cholesterol 45 mg/dL (calc) [facility] Comment: Reference range: <100 Desirable range <100 mg/dL for primary prevention; <70 mg/dL for patients with CHD or diabetic patients with > or = 2 CHD risk factors. LDL-C is now calculated using the Juan calculation, which is a validated novel method providing better accuracy than the Friedewald equation in the estimation of LDL-C. Gregorio REYES et al. ZORA. 2013;310(19): 3168-5085 (http://education.[employer]/faq/HXN550) Non-HDL Cholesterol 59 <130 mg/dL (calc) [facility] Comment: For patients with diabetes plus 1 major ASCVD risk factor, treating to a non-HDL-C goal of <100 mg/dL (LDL-C of <70 mg/dL) is considered a therapeutic option. Triglycerides 63 <150 mg/dL [facility] 11/17/2021 11:5 3 AM EDT Kelsey Mccormick MD LAB BLOOD ORDERABLES Final Res ult [facility] [address] * Hm Colonoscopy (02/17/2020) Historical Provider HEALTH MAINTENANCE Final Result from Last 3 Months or Most Recently Relevant to Health Maintenance Insurance [place] [address] [place] [id number] [facility] MD Care Teams Ammonia Worker Relationship Specialty Start Date End Date Kelsey Mccormick MD [address] [place] [id number] PCP - General Family Medicine 04/05/20
--- OUTSIDE RECORDS SUMMARY | 2024-11-03 13:09 | XMS_ITS | Encounter Summary ---
Author Organization [employer] Address [address] [place] [address] [address] [place] [address] Care Team Providers Care Ski Lift Operator Name Role Phone Kelsey Mccormick MD Primary Care Provider [phone] Encounter Details Date Type Department Care Team (Late st Contact Info) Description 10/25/2022 Abstract [facility] [address] [place] [address] Shani Diaz Social History Tobacco Use Types [...] on filedocumented in this encounter Care Teams Ski Lift Operator Relationship Specialty Start Date End Date Kelsey Mccormick MD [address] [place] [address] PCP - General Family Medicine 04/05/20 documented as of this encounter
--- OUTSIDE RECORDS SUMMARY | 2024-11-03 13:09 | XMS_ITS | Encounter Summary ---
Author Organization [employer] Address [address] [place] [address] [address] [place] [address] Care Team Providers Care Drying Machine Back Tender Name Role Phone Kelsey Mccormick MD Primary Care Provider [phone] Encounter Details Date Type Department Care Team (Late st Contact Info) Description 10/25/2022 Orders Only [facility] [address] [place] [address] Provider, MD Melisa Social History Tobacco Use [...] on filedocumented in this encounter Care Teams Drying Machine Back Tender Relationship Specialty Start Date End Date Kelsey Mccormick MD [address] [place] [address] PCP - General Family Medicine 04/05/20 documented as of this encounter
--- OUTSIDE RECORDS SUMMARY | 2024-11-03 13:09 | XMS_ITS | Clinical Summary ---
Author Organization [facility] Address [address] [place] [address] Phone Care Team Providers Care Gag Writer Name Role Phone Arielle Sandoval NP Primary Care Provider [phone] Medications senna (SENOKOT) 8.6 MG tablet Take [...] [place] Care Teams Gag Writer Relationship Specialty Start Date End Date Arielle Sandoval NP PCP - General 03/07/20
== END 2024-11-03 11:45 | disposition home or self-care (01) ==
LOC: HO.HUSH 10:54
PROVIDERS: PCP General Practice; Visit Provider Urology
DX: C67.9 Malignant neoplasm of bladder, unspecified (principal); Z13.9 Encounter for screening, unspecified
CPT/HCPCS: 52000

== ENCOUNTER → 2024-11-03 10:54 | Outpatient (BNVA) | payer MEDICARE, MEDICAID, SELFPAY | PROVIDERS: PCP General Practice; Visit Provider Urology | DX: Z08 Encounter for follow-up examination after completed treatment for malignant neoplasm (principal); Z85.51 Personal history of malignant neoplasm of bladder; N40.0 Benign prostatic hyperplasia without lower urinary tract symptoms; Z13.9 Encounter for screening, unspecified | CPT/HCPCS: 52000; 81003; 99212 ==